=== PATIENT | male | born 1930 | race Caucasian/White ===

== ENCOUNTER 2017-09-18 10:34 | Inpatient (IN) | payer OTHER ==
[~2017-09-18] VITALS: Ht 177.8 cm; Wt 68.8 kg
[~2017-09-18 10:34] MED LIST: ASPEC81 PO; FERR1TAB13 PO; FLM4 PO; MULTTAB58 PO; PRS5 PO; SIMV80TA5 PO; TERA1CAP63 PO
[2017-09-18] MEDS ORDERED: ASPIRIN 81 MG CHEW PO STA (10:54)
[2017-09-18 11:21] LABS: BASO % 0.6 %; BASO ABS # 0.04 K/uL (0-0.2); EOS % 1.5 %; EOS ABS # 0.11 K/uL (0-0.5); HEMATOCRIT 39.3 % (42-52); HEMOGLOBIN 13.5 g/dL (14.0-18.0); IG# 0.02 K/uL (0.00-0.02); LYMPH % 6.4 %; LYMPH ABS # 0.46 K/uL (1.2-3.4); MEAN CORPUSCULAR HEMOGLOBIN 32.3 pg (25-34); MEAN CORPUSCULAR HGB CONC 34.4 g/dl (32-36); MEAN PLATELET VOLUME 11.1 fL (7.4-10.4); MONO % 6.5 %; MONO ABS # 0.47 K/uL (0.11-0.59); NEUT % 84.7 %; NEUT ABS # 6.12 K/uL (1.4-6.5); PLATELET COUNT 146 K/uL (130-400); RED CELL DISTRIBUTION WIDTH SD 48.2 fL (36.4-46.3); WHITE BLOOD COUNT 7.22 K/uL (4.8-10.8)
--- NOTE | 2017-09-18 11:34 | EMERGENCY ROOM VISIT NOTE ---
History Report prepared by Aaron: Adri Vásquez Under the Supervision of: Dr. Guille Euceda M.D. First contact with patient: 10:45 Chief Complaint: SHORTNESS OF BREATH Stated Complaint: SOB Nursing Triage Summary: Pt presents with sob x a couple days, worse at night when lying flat. "Sore" across chest. Pt reports having a pacemaker. NPC. Pt states, "I'm dizzy too. I' m always dizzy. Nobody knows what causes it." Denies edema. History of Present Illness The patient is a 87 year old male who presents to the Emergency Room with complaints of constant shortness of breath for the past 2 days. Laying down exacerbates his symptoms, while sitting up helps to alleviate his symptoms. He has been sleeping propped up with pillows at night because he has been unable to lay flat. He reports some chest pain across his chest as well as a dry, nonproductive cough. He rates his pain as a 3/10 in severity. Pt denies recent travel or recent surgery. He does not take any hormones. He denies LOC, fevers, hemoptysis, and abdominal pain. His legs are not more swollen than usual. He denies any personal history of CHF. He takes a daily aspirin. The patient follows with [facility] cardiology. His PCP is through the [facility], most [facility] [place] Source of History: patient Onset: 2 days ago Position: chest (respiratory) Symptom Intensity: 3/10 Quality: other (shortness of breath) Timing: constant Modifying Factors (Worsening): other (laying down) Modifying Factors (Relieving): other (sitting up) Associated Symptoms: + cough, + chest pain, No LOC, No fevers, No abdominal pain Note: Pt denies hemoptysis. Review of Systems See HPI for pertinent positives and negatives. A total of ten systems were reviewed and were otherwise negative. 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 Social History Smoking Status: Never Smoker Drug Use: none Marital Status: Housing Status: lives with significant other Occupation Status: retired Current/Historical Medications Scheduled Aspirin Enteric Coated (Ecotrin Or Generic *), 81 MG PO BID Ferrous Sulfate (Kp Ferrous Sulfate), 325 MG PO DAILY Finasteride (Finasteride), 5 MG PO QAM Multiple Vitamin (Multivitamin), 1 TAB PO DAILY Simvastatin (Zocor), 80 MG PO QPM Terazosin Hcl (Hytrin), 10 MG PO DAILY Allergies Coded Allergies: No Known Allergies (Verified , 09/18/17) Physical Exam Vital Signs Date Time Temp Pulse Resp B/P (MAP) Pulse Ox O2 Delivery O2 Flow Rate FiO2 09/18/17 13:14 94 Room Air 09/18/17 12:16 88 145/87 09/18/17 12:12 89 09/18/17 12:04 85 143/92 09/18/17 12:01 85 20 149/102 94 Room Air 09/18/17 11:08 96 Room Air 09/18/17 10:52 98 09/18/17 10:43 97 Room Air 09/18/17 10:41 36.7 96 18 162/87 97 Room Air Physical Exam Physical Exam GENERAL: He is oriented to person, place, and time. He appears well-developed and well-nourished. He does not appear distressed. ____ HENT: Exam performed. Head: Normocephalic and atraumatic. Right Ear: External ear normal. No mastoid tenderness. Left Ear: External ear normal. No mastoid tenderness. Mouth/Throat: The oropharynx is clear and moist. No trismus in the jaw. No dental abscesses or uvula swelling. No oropharyngeal exudate or tonsillar abscesses. ____ EYES: Conjunctivae and EOM are normal. Pupils are equal, round, and reactive to light. Right eye exhibits no discharge. Left eye exhibits no discharge. No scleral icterus. ____ NECK: Normal range of motion. Neck supple. No JVD present. No spinous process tenderness present. No carotid bruit present. No rigidity. No tracheal deviation and normal range of motion present. No Brudzinski's sign and no Kernig 's sign noted. ____ CV: Normal rate, regular rhythm, normal heart sounds and intact distal pulses. There is no peripheral edema. Palpable radial pulses bue. ____ PULM/CHEST: Effort normal and breath sounds normal. No respiratory distress. No stridor. He has no wheezes. He has no rales. Chest Wall: He exhibits no tenderness. ____ ABD: The abdomen is soft. Bowel sounds are normal. He has no distension. No mass is present. There is no tenderness. There is no rebound, no guarding, no Zapata's sign and no tenderness at McBurney's point. Rovsig negative MUSC/SKEL: Normal range of motion. 2+ pitting edema in bilateral lower extremities. There is no tenderness or deformity. LYMPH: No cervical adenopathy. ____ NEURO: He is alert and oriented to person, place, and time. He has normal strength. No cranial nerve deficit or sensory deficit. Coordination and gait normal. GCS eye subscore is 4. GCS verbal subscore is 5. GCS motor subscore is 6. cerbellar tests wnl. ____ SKIN: Skin is warm and dry. He is not diaphoretic. ____ PSYCH: He has a normal mood and affect. His behavior is normal. Judgment and thought content normal. ____ Medical Decision & Procedures ER Provider Diagnostic Interpretation: Radiology results as stated below per my review and radiologist interpretation: CHEST 2 VIEWS ROUTINE CLINICAL HISTORY: sob COMPARISON STUDY: 05/04/2016 FINDINGS: The heart is enlarged. There is a left subclavian dual-chamber central venous pacemaker present. There is radiographic evidence of mild congestive failure. There is a moderate left pleural effusion and small subpulmonic right pleural effusion. There are bibasal airspace opacities, likely representing either compressive atelectasis or a superimposed infectious/inflammatory process. IMPRESSION: 1. Congestive failure with bilateral pleural effusions left greater than right 2. Bibasilar opacities. These could reflect either compressive atelectasis, or a superimposed infectious/inflammatory process., Electronically signed by: Fernando Nolen M.D. 09/18/2017 11:42 AM Dictated Date/Time: 09/18/2017 11:40 AM Laboratory Results 09/18/17 11:00 Red Blood Count 4.18, Mean Corpuscular Volume 94.0, Mean Corpuscular Hemoglobin 32.3, Mean Corpuscular Hemoglobin Concent 34.4, Mean Platelet Volume 11.1, Neutrophils (%) (Auto) 84.7, Lymphocytes (%) (Auto) 6.4, Monocytes (%) (Auto) 6.5, Eosinophils (%) (Auto) 1.5, Basophils (%) (Auto) 0.6, Neutrophils # (Auto) 6.12, Lymphocytes # (Auto) 0.46, Monocytes # (Auto) 0.47, Eosinophils # (Auto) 0.11, Basophils # (Auto) 0.04 09/18/17 11:00 Test 09/18/17 11:00 White Blood Count 7.22 K/uL (4.8-10.8) Red Blood Count 4.18 M/uL (4.7-6.1) Hemoglobin 13.5 g/dL (14.0-18.0) Hematocrit 39.3 % (42-52) Mean Corpuscular Volume 94.0 fL (80-100) Mean Corpuscular Hemoglobin 32.3 pg (25-34) Mean Corpuscular Hemoglobin Concent 34.4 g/dl (32-36) Platelet Count 146 K/uL (130-400) Mean Platelet Volume 11.1 fL (7.4-10.4) Neutrophils (%) (Auto) 84.7 % Lymphocytes (%) (Auto) 6.4 % Monocytes (%) (Auto) 6.5 % Eosinophils (%) (Auto) 1.5 % Basophils (%) (Auto) 0.6 % Neutrophils # (Auto) 6.12 K/uL (1.4-6.5) Lymphocytes # (Auto) 0.46 K/uL (1.2-3.4) Monocytes # (Auto) 0.47 K/uL (0.11-0.59) Eosinophils # (Auto) 0.11 K/uL (0-0.5) Basophils # (Auto) 0.04 K/uL (0-0.2) RDW Standard Deviation 48.2 fL (36.4-46.3) RDW Coefficient of Variation 14.0 % (11.5-14.5) Immature Granulocyte % (Auto) 0.3 % Immature Granulocyte # (Auto) 0.02 K/uL (0.00-0.02) Anion Gap 5.0 mmol/L (3-11) Est Creatinine Clear Calc Drug Dose 45.2 ml/min Estimated GFR () 62.5 Estimated GFR (Non- 53.9 BUN/Creatinine Ratio 19.8 (10-20) Calcium Level 9.3 mg/dl (8.5-10.1) Troponin I 0.719 ng/ml (0-0.045) Pro-B-Type Natriuretic Peptide 64148 pg/ml (0-1800) Laboratory results reviewed by me. Medications Administered Medications (Trade) Dose Ordered Sig/Rhonda Route Start Time Stop Time Status Last Admin Dose Admin Aspirin (Aspirin Chew) 324 mg NOW STAT PO 09/18/17 10:54 09/18/17 10:56 DC 09/18/17 11:07 324 MG Nitroglycerin (Nitrostat Tab) 0.4 mg NOW STAT SL 09/18/17 11:58 09/18/17 11:59 DC 09/18/17 12:00 0.4 MG Furosemide (Lasix Inj) 40 mg ONE ONCE IV 09/18/17 12:15 09/18/17 12:16 DC 09/18/17 12:12 40 MG ECG Indication: SOB/dyspnea Rate (beats per minute): 92 Rhythm: normal sinus Findings: LBBB, other (OR WNL; QRS 166, QTC 502; Scarbosa negative) Comparison ECG Date: 04/24/16 Change: no significant change Change: Patient's electrocardiogram was interpreted by me. 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 1045: The patient was evaluated in room C5. A complete history and physical exam was performed. 1054: Aspirin 324 mg PO 1158: Nitroglycerin 0.4 mg SL 1215: Lasix 40 mg IV 1232: Troponin elevated. Pro-BNP elevated. Patient was reporting chest pain 3/ 10. He was given 1 nitro SL and this resolved all of his chest pain. Patient given Lasix. Cardiology is paged. 1239: I spoke with Dr. Rodriguez of cardiology. We discussed the patient's case. He is in agreement with the treatment plan. He feels the elevated troponin is most likely due to CHF exacerbation. He recommended holding off on a heparin drip. 1244: I reassessed the patient at this time. He is feeling better and resting comfortably. I discussed the results and treatment plan with the patient. I answered all pertaining questions that he had. He expressed understanding and verbalized agreement. The patient will be evaluated by the [facility] for further management. Medical Decision Troponin elevated. Pro-BNP elevated. Patient was reporting chest pain 10/19. He was given 1 nitro SL and this resolved all of his chest pain. Patient given Lasix. I spoke with Dr. Rodriguez of cardiology. We discussed the patient's case. He is in agreement with the treatment plan. He feels the elevated troponin is most likely due to CHF exacerbation. He recommended holding off on a heparin drip and nitro drip at this time. Admitted to hospitalist service. Hospitalist will continue to trend troponins. Medication Reconcilliation Current Medication List: was personally reviewed by me Blood Pressure Screening Patient's blood pressure: Elevated blood pressure Blood pressure disposition: Elevated BP felt to be situational Consults Time Called: 1236 Consulting Physician: Dr. Rodriguez Returned Call: [address] Rodriguez of cardiology. We discussed the patient's case. He is in agreement with the treatment plan. He feels the elevated troponin is most likely due to CHF exacerbation. He recommended holding off on a heparin drip. Impression Primary Impression: CHF (congestive heart failure) Scribe Attestation The scribe's documentation has been prepared under my direction and personally reviewed by me in its entirety. I confirm that the note above accurately reflects all work, treatment, procedures, and medical decision making performed by me. The scribe's documentation has been prepared under my direction and personally reviewed by me in its entirety. I confirm that the note above accurately reflects all work, treatment, procedures, and medical decision making performed by me. Departure Information Dispostion Being Evaluated By Hospitalist Referrals No Doctor, Assigned (PCP) Patient Instructions My [facility] [address]
[2017-09-18 11:43] LABS: CALCIUM 9.3 mg/dl (8.5-10.1); CREATININE 1.21 mg/dl (0.60-1.40); POTASSIUM 4.1 mmol/L (3.5-5.1)
--- NOTE | 2017-09-18 11:43 | DIAGNOSTIC IMAGING REPORT ---
CHEST 2 VIEWS ROUTINE CLINICAL HISTORY: sob COMPARISON STUDY: 05/04/2016 FINDINGS: The heart is enlarged. There is a left subclavian dual-chamber central venous pacemaker present. There is radiographic evidence of mild congestive failure. There is a moderate left pleural effusion and small subpulmonic right pleural effusion. There are bibasal airspace opacities, likely representing either compressive atelectasis or a superimposed infectious/inflammatory process. IMPRESSION: 1. Congestive failure with bilateral pleural effusions left greater than right 2. Bibasilar opacities. These could reflect either compressive atelectasis, or a superimposed infectious/inflammatory process., Electronically signed by: Fernando Nolen M.D. 09/18/2017 11:42 AM Dictated Date/Time: 09/18/2017 11:40 AM
[2017-09-18] MEDS ORDERED: FUROSEMIDE INJ 40 MG in SYRINGE 0 ML IV STA (11:54)
[2017-09-18] MEDS ORDERED: NITROGLYCERIN 0.4 MG SL PER TAB CHARGE SL STA (11:58)
[2017-09-18] MEDS ORDERED: NITROGLYCERIN 0.4 MG SL PER TAB CHARGE ONE (11:58)
[2017-09-18] MEDS ORDERED: FUROSEMIDE 40 MG/4 ML VIAL IV ONE (12:15)
[2017-09-18] MEDS ORDERED: POTASSIUM CHLORIDE 10 MEQ TABCR PO STA (12:56)
[2017-09-18] MEDS ORDERED: NITROGLYCERIN 0.4 MG SL PER TAB CHARGE SL PRN (13:00)
[2017-09-18] MEDS ORDERED: ALUMINUM/MAGNESIUM/SIMETH (MAALOX MAX) 30 ML UDC PO PRN (13:00)
[2017-09-18] MEDS ORDERED: POLYETHYLENE (MIRALAX) 17 GM PACK PO PRN (13:00)
[2017-09-18] MEDS ORDERED: NITROGLYCERIN 2% OINTMENT 30GM TUBE EXT SCH (13:00)
[2017-09-18] MEDS ORDERED: ACETAMINOPHEN 325 MG TAB PO PRN (13:00)
[2017-09-18] MEDS ORDERED: MAGNESIUM HYDROXIDE SUSP 30 ML UDC PO PRN (13:00)
[2017-09-18] MEDS ORDERED: ONDANSETRON INJ 2 MG/ML 2 ML VIAL IV PRN (13:00)
[2017-09-18 13:14] VITALS: BP 157/95; PULSE 85; TEMP 36.8; O2SAT 94; Ht 177.8 cm; Wt 68.8 kg
[2017-09-18] MEDS ORDERED: ENOXAPARIN 1 MG/KG SQ SCH (13:30)
--- NOTE | 2017-09-18 13:47 | History and Physical ---
History & Physical Date & Time of Service: Sep 18, 2017 at 13:26 Chief Complaint: SOB Primary Care Physician: No Doctor, Assigned History of Present Illness Source: patient 87 y/o M Hx BPH, HPL, LBBB, pacer due to 3rd degree heart block 2015. Pt presents with SOB, orthopnea and pleuritic CP when lying flat. He denies a productive cough, fever, N/V or episodes of diaphoresis. The pt does not have a history of CHF or CAD. Initial labs are notable for an elevated trop. CXR is consistent with CHF. Past Medical/Surgical History 1) HPL 2) BPH 3) Pacer due to 3rd degree heart block 2015 4) LBBB Surgical Pacer placement L TKR Family History Noncontributory Social History Retired aircraft machinist - rare ETOH, no smoking Smoking Status: Never Smoker Drug Use: none Marital Status: Occupational Status: retired Immunizations History of Influenza Vaccine: Unknown History of Tetanus Vaccine?: Yes History of Pneumococcal: Unknown History of Hepatitis B Vaccine: No Multi-Drug Resistant Organisms History of MDRO: No Allergies Coded Allergies: No Known Allergies (Verified , 09/18/17) Home Medications Scheduled Aspirin Enteric Coated (Ecotrin Or Generic *), 81 MG PO BID Ferrous Sulfate (Kp Ferrous Sulfate), 325 MG PO DAILY Finasteride (Finasteride), 5 MG PO QAM Multiple Vitamin (Multivitamin), 1 TAB PO DAILY Simvastatin (Zocor), 80 MG PO QPM Terazosin Hcl (Hytrin), 10 MG PO DAILY Review of Systems Constitutional: No fever, No chills, No sweats Eyes: No worsening of vision ENT: No hearing loss, No unusual epistaxis, No nasal symptoms Respiratory: + shortness of breath, + dyspnea on exertion, + dyspnea at rest, No cough, No sputum, No wheezing Cardiovascular: + chest pain (when lying flat - pleuritic) Abdomen: No pain, No nausea, No vomiting Musculoskeletal: No joint pain Genitourinary - Male: No hematuria, No dysuria, No urinary frequency Neurologic: No memory loss, No paralysis Psychiatric: No depression symptoms Endocrine: No fatigue Hematologic / Lymphatic: No abnormal bleeding/bruising Integumentary: + rash (erythema of RLE - chronic) Allergic / Immunologic: No environmental allergies Physical Exam Vital Signs Date Time Temp Pulse Resp B/P (MAP) Pulse Ox O2 Delivery O2 Flow Rate FiO2 09/18/17 12:16 88 145/87 09/18/17 12:12 89 09/18/17 12:04 85 143/92 09/18/17 12:01 85 20 149/102 94 Room Air 09/18/17 11:08 96 Room Air 09/18/17 10:52 98 09/18/17 10:43 97 Room Air 09/18/17 10:41 36.7 96 18 162/87 97 Room Air General Appearance: WD/WN, no apparent distress, + thin (thin, e;mandi;y male ) Head: normocephalic Eyes: normal inspection ENT: normal ENT inspection, pharynx normal Neck: supple, + JVD Respiratory/Chest: chest non-tender, + decreased breath sounds, + crackles Cardiovascular: regular rate, rhythm, no edema, no gallop Abdomen/GI: normal bowel sounds, non tender, soft Back: no CVA tenderness Extremities/Musculoskelatal: no calf tenderness, normal capillary refill, + pedal edema Neurologic/Psych: neck band setter II-XII nml as tested, no motor/sensory deficits, alert, oriented x 3 Skin: + pertinent finding (Erythema without overt cellulitis on R ant) Diagnostics Laboratory Results Results Past 24 Hours Test 09/18/17 11:00 Range/Units White Blood Count 7.22 4.8-10.8 K/uL Red Blood Count 4.18 4.7-6.1 M/uL Hemoglobin 13.5 14.0-18.0 g/dL Hematocrit 39.3 42-52 % Mean Corpuscular Volume 94.0 80-100 fL Mean Corpuscular Hemoglobin 32.3 25-34 pg Mean Corpuscular Hemoglobin Concent 34.4 32-36 g/dl Platelet Count 146 130-400 K/uL Mean Platelet Volume 11.1 7.4-10.4 fL Neutrophils (%) (Auto) 84.7 % Lymphocytes (%) (Auto) 6.4 % Monocytes (%) (Auto) 6.5 % Eosinophils (%) (Auto) 1.5 % Basophils (%) (Auto) 0.6 % Neutrophils # (Auto) 6.12 1.4-6.5 K/uL Lymphocytes # (Auto) 0.46 1.2-3.4 K/uL Monocytes # (Auto) 0.47 0.11-0.59 K/uL Eosinophils # (Auto) 0.11 0-0.5 K/uL Basophils # (Auto) 0.04 0-0.2 K/uL RDW Standard Deviation 48.2 36.4-46.3 fL RDW Coefficient of Variation 14.0 11.5-14.5 % Immature Granulocyte % (Auto) 0.3 % Immature Granulocyte # (Auto) 0.02 0.00-0.02 K/uL Sodium Level 143 136-145 mmol/L Potassium Level 4.1 3.5-5.1 mmol/L Chloride Level 111 98-107 mmol/L Carbon Dioxide Level 27 21-32 mmol/L Anion Gap 5.0 3-11 mmol/L Blood Urea Nitrogen 24 7-18 mg/dl Creatinine 1.21 0.60-1.40 mg/dl Est Creatinine Clear Calc Drug Dose 45.2 ml/min Estimated GFR () 62.5 Estimated GFR (Non- 53.9 BUN/Creatinine Ratio 19.8 10-20 Random Glucose 137 70-99 mg/dl Calcium Level 9.3 8.5-10.1 mg/dl Troponin I 0.719 0-0.045 ng/ml Pro-B-Type Natriuretic Peptide 96713 0-1800 pg/ml Diagnostic Radiology CXR: CHF - BL effusions EKG sinus - LBBB Impression Assessment and Plan 87 y/o M Hx BPH, HPL, LBBB, pacer due to 3rd degree heart block 2016. Pt presents with SOB, orthopnea and pleuritic CP when lying flat. He denies a productive cough, fever, N/V or episodes of diaphoresis. The pt does not have a history of CHF or CAD. 1) CHF - new onset - IV Lasix, daily weight, I/O - echo and cardiology consult requested. Would eventually benefit from B arlyn and possibly SHELLEY after more details available from echo. 2) Troponin is elevated - likely due to CHF - a silent event precipitating the above cannot however be ruled out. He is placed on full-dose Lovenox pending repeat trop and an echo. 3) LE edema - L>R - US ordered due to asymmetric edema and pleuritic CP. 4) HPL - cont Zocor 5) BPH - cont Terazosin Full code - Lovenox prophylaxis Total time for this admit including review of labs, meds, records, EKG, XR - discussion with pt and ER attending - 38 min Level of Care Telemetry Resuscitation Status FULL RESUSCITATION VTE Prophylaxis VTE Risk Assessment Done? Y/N: Yes Risk Level: Moderate Given or contraindicated: Enoxaparin (Lovenox)SQ
[2017-09-18] MEDS ORDERED: HEPARIN SOD 5000 UNIT/0.5 ML CARP SQ SCH (14:00)
--- NOTE | 2017-09-18 14:31 | DIAGNOSTIC IMAGING REPORT ---
BILATERAL LOWER EXTREMITY VENOUS DOPPLER HISTORY: Acute bilateral lower extremity swelling dvt COMPARISON STUDY: None. FINDINGS: There is normal compressibility, flow, and augmentation within the bilateral lower extremity deep venous systems. IMPRESSION: No sonographic evidence of deep venous thrombosis within the right or left lower extremity. Electronically signed by: Carmelo Hayward M.D. 09/18/2017 2:29 PM Dictated Date/Time: 09/18/2017 2:28 PM
[2017-09-18 16:02] VITALS: O2SAT 95
--- NOTE | 2017-09-18 16:51 | ECHOCARDIOGRAM REPORT ---
*NOTICE TO RECEIVING DEMOCRAT AGENCY This information is strictly Confidential and protected under [place] law. [place] law prohibits you from making any further disclosure of this information unless further disclosure is expressly permitted by the written consent of the person to whom it pertains or is authorized by law. A general authorization for the release of medical or other information is not sufficient for this purpose. Hospital accepts no responsibility if the information is made available to any other person, INCLUDING THE PATIENT. Interpretation Summary * Name: GEORGIANA STOCKTON JR Study Date: 09/18/2017 03:02 PM BP: 150/91 mmHg * Patient Location: [facility] HR: 77 * : 1930 (M/d/yyyy) Gender: Male Height: 70 in * Age: 87 yrs Ethnicity: CA Weight: 172 lb * Ordering Physician: Ramírez Villarreal * Referring Physician: Self, Referred * Performed By: Alyssa Donovan RDCS * * Reason For Study: CHF * BSA: 2.0 m2 * -- Conclusions -- * 1. Moderately dilated LV, borderline concentric LVH. * 2. Severe LV dysfunction. LVEF 20-25 %. Regional wall motion abnormalities as noted below. Grade 2 diastolic dysfunction * 3. Normal RV size and function. * 4. Moderate mitral regurgitation * 5. Thickened, calcified, restricted aortic valve with at least mild aortic stenosis. * 6. Mild pulmonary hypertension. Estimated PASP 40-45 mmHg. Normal estimated CVP. * 7. Large left pleural effusion. * 8. Compared with prior study on 04/21/2016: Significant decline in LV function. Procedure Details * Left Ventricle The left ventricle is moderately dilated. There is borderline concentric left ventricular hypertrophy. Ejection Fraction = 20-25%. Akinetic inferior, septal castro. Severely hypokinetic anteroseptal, inferlateral castro. Near normal function in base to mid anterior wall and basal lateral wall. * Right Ventricle The right ventricle is grossly normal size. There is a pacemaker lead in the right ventricle. The right ventricular systolic function is normal as assessed by tricuspid annular plane systolic excursion (TAPSE) (normal >1.5 cm). * Atria The left atrium is severely dilated. The right atrium is mildly dilated. No ASD detected; PFO is not assessed. * Mitral Valve The mitral valve is grossly normal. There is no mitral valve stenosis. There is moderate mitral regurgitation. * Tricuspid Valve The tricuspid valve is not well visualized, but is grossly normal. There is trace tricuspid regurgitation. Right ventricular systolic pressure is elevated at 40-50mmHg. * Aortic Valve Calcified, thickened and restricted Mild valvular aortic stenosis. There is no significant aortic regurgitation. * Pulmonic Valve The pulmonary valve is inadequately visualized, but the Doppler data is adequate for interpretation. Pulmonic stenosis is absent. There is no significant pulmonary regurgitation. * Great Vessels The aortic root and proximal ascending aorta are normal sized. * Pericardium/Pleural There is no pericardial effusion. Large left pleural effusion. * Great Vessels Normal inferior vena cava size and collapsability with sniff indicates a normal right atrial pressure of 3 mmHg * Left Ventricular Diastolic Function Diastolic dysfunction, Grade II (pseudonormalization pattern). * * MMode 2D Measurements and Calculations * IVSd 1.2 cm * IVSs 1.2 cm * * LVIDd 6.0 cm * LVIDs 5.2 cm * LVPWd 1.2 cm * LVPWs 1.4 cm * * IVS/LVPW 0.97 * FS 14.0 % * EDV(Teich) 183.1 ml * ESV(Teich) 129.5 ml * EF(Teich) 29.2 % * * EDV(cubed) 220.8 ml * ESV(cubed) 140.6 ml * EF(cubed) 36.3 % * % IVS thick -1.55 % * % LVPW thick 15.4 % * * LV mass(C)d 328.2 grams * LV mass(C)dI 167.6 grams/m\S\2 * LV mass(C)s 283.2 grams * LV mass(C)sI 144.7 grams/m\S\2 * * SV(Teich) 53.5 ml * SI(Teich) 27.3 ml/m\S\2 * SV(cubed) 80.2 ml * SI(cubed) 41.0 ml/m\S\2 * * Ao root diam 3.3 cm * Ao root area 8.5 cm\S\2 * * LVAd ap4 43.5 cm\S\2 * LVLd ap4 10.2 cm * EDV(MOD-sp4) 158.5 ml * EDV(sp4-el) 157.7 ml * LVAs ap4 35.8 cm\S\2 * LVLs ap4 9.8 cm * ESV(MOD-sp4) 110.3 ml * ESV(sp4-el) 110.5 ml * EF(MOD-sp4) 30.4 % * EF(sp4-el) 29.9 % * * LVAd ap2 49.6 cm\S\2 * LVLd ap2 10.4 cm * EDV(MOD-sp2) 205.7 ml * EDV(sp2-el) 200.9 ml * LVAs ap2 41.4 cm\S\2 * LVLs ap2 10.2 cm * ESV(MOD-sp2) 148.0 ml * ESV(sp2-el) 143.1 ml * EF(MOD-sp2) 28.1 % * EF(sp2-el) 28.8 % * * LVLd %diff 1.9 % * EDV(MOD-bp) 181.0 ml * LVLs %diff 3.2 % * ESV(MOD-bp) 128.2 ml * EF(MOD-bp) 29.2 % * * SV(MOD-sp4) 48.2 ml * SI(MOD-sp4) 24.6 ml/m\S\2 * * SV(MOD-sp2) 57.8 ml * SI(MOD-sp2) 29.5 ml/m\S\2 * * SV(MOD-bp) 52.8 ml * SI(MOD-bp) 27.0 ml/m\S\2 * * SV(sp4-el) 47.2 ml * SI(sp4-el) 24.1 ml/m\S\2 * * SV(sp2-el) 57.8 ml * SI(sp2-el) 29.5 ml/m\S\2 * * * * Doppler Measurements and Calculations * MV E max wesley 102.3 cm/sec * MV A max wesley 82.0 cm/sec * * MV E/A 1.2 * * MV dec time 0.14 sec * * Ao V2 max 217.2 cm/sec * Ao max PG 18.9 mmHg * Ao max PG (full) 16.8 mmHg * Ao V2 mean 145.0 cm/sec * Ao mean PG 9.8 mmHg * Ao mean PG (full) 8.8 mmHg * Ao V2 VTI 40.8 cm * * LV V1 max PG 2.0 mmHg * LV V1 mean PG 1.0 mmHg * * LV V1 max 71.3 cm/sec * LV V1 mean 47.3 cm/sec * LV V1 VTI 14.0 cm * * SV(Ao) 347.8 ml * SI(Ao) 177.7 ml/m\S\2 * * TR max wesley 243.2 cm/sec * *
[2017-09-18] MEDS: NITROGLYCERIN 2% OINTMENT 30GM TUBE EXT SCH ×2 (16:57→21:10)
[2017-09-18] MEDS: FUROSEMIDE INJ 20 MG in SYRINGE 0 ML IV SCH (16:58)
[2017-09-18] MEDS: ENOXAPARIN 80 MG/0.8 ML SYR SQ SCH (16:58)
[2017-09-18 19:30] VITALS: BP 119/70; PULSE 80; TEMP 36.5; O2SAT 90
[2017-09-18 20:09] VITALS: O2SAT 95
[2017-09-18] MEDS ORDERED: FUROSEMIDE INJ 20 MG in SYRINGE 0 ML IV SCH (21:00)
[2017-09-18] MEDS: ASPIRIN 81 MG ECTAB PO SCH (21:09)
[2017-09-18] MEDS: SIMVASTATIN 80 MG TAB PO SCH (21:09)
[2017-09-18] MEDS: POTASSIUM CHLORIDE 10 MEQ TABCR PO SCH (21:10)
[2017-09-18 23:59] VITALS: BP 119/72; PULSE 93; TEMP 36.9; O2SAT 94
[2017-09-19] VITALS (11 sets, daily range): BP systolic 95–149; BP diastolic 60–79; PULSE 69–83; TEMP 36.3–37; O2SAT 86–96
[2017-09-19] MEDS: NITROGLYCERIN 2% OINTMENT 30GM TUBE EXT SCH ×2 (04:00→09:10)
[2017-09-19] MEDS: ENOXAPARIN 80 MG/0.8 ML SYR SQ SCH ×2 (04:40→17:37)
[2017-09-19] MEDS: FINASTERIDE 5 MG TAB PO SCH (08:02)
[2017-09-19] MEDS: FUROSEMIDE INJ 20 MG in SYRINGE 0 ML IV SCH (08:02)
[2017-09-19] MEDS: ASPIRIN 81 MG ECTAB PO SCH ×2 (08:03→21:32)
[2017-09-19] MEDS: POTASSIUM CHLORIDE 10 MEQ TABCR PO SCH ×2 (08:03→21:32)
--- NOTE | 2017-09-19 09:47 | Cardiology Consultation ---
Cardiology Consultation Date of Consultation: Sep 19, 2017. Requesting Physician: Dr. Villarreal Reason for Consultation: CHF, pacer Pt evaluation today including: conversation w/ patient, physical exam, lab review, review of studies, review of inpatient medication list History of Present Illness This is a very pleasant 87-year-old gentleman who has a history of intermittent lightheadedness, dizziness, presyncope as well as at least 5 syncopal events historically. He did have a positive Lyme screen, and he was identified as having periods of complete heart block on telemetry monitoring in 2015. 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 He seemed to have return of AV conduction with a left bundle branch block and first-degree AV block and his temporary pacemaker was removed, he had a stress test performed on 04/23/2016 where he had no AV block. Then on the evening of 04/23/2016 he developed complete heart block with pauses up to 17 seconds in duration associated with syncope. He therefore had another temporary pacemaker implanted followed by permanent pacemaker implant on 04/24/2016. He has had no further presyncope or syncope. He is however troubled by lightheadedness. He is not been able to describe it very well, it generally occurs while he is standing although not necessarily with standing up. It can sometimes last all day. He had not checked his blood pressure while he is having it in the past. This has been a long-standing issue and seems to be separate from his presyncope and syncope. He was admitted having a relatively brief period of shortness of breath predominantly characterized by orthopnea. This appears to have occurred only 3 or 4 days prior to admission, prior to that he reports no orthopnea, no PND and no dyspnea on exertion. He has not had any chest discomfort. He was observed to be in heart failure and was admitted, echocardiography shows severe left ventricular dysfunction which was new compared to 2016. At the time of my evaluation this morning he is complaining of sudden onset of weakness, this occurred while he was brushing his teeth and on return to his bed his blood pressure was taken and was perhaps a little bit low (109 systolic ) and Nitropaste was removed. I had his blood pressure rechecked and it was 116 in left arm and 104 in the right arm. His oxygenation was perhaps slightly low at 90%. His rhythm was stable and paced. He appeared to have no change in the symptoms while laying in bed. He is not complaining of orthopnea today. 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) (4) Syncope Social History Smoking Status: Never Smoker History of Alcohol Use: No Review of Systems Constitutional: + see HPI, + weakness, No fever, No weight loss Respiratory: + shortness of breath, No cough, No wheezing, No dyspnea on exertion Cardiac: + see HPI, + orthopnea, No PND, No edema, No palpitations Abdomen: No pain, No nausea, No vomiting, No diarrhea, No GI bleeding Male : No urinary frequency, No nocturia more than once/night, No slowing stream, No sexual dysfunction Neurologic: No paralysis, No weakness, No numbness/tingling, No balance problems Heme: No abnormal bleeding/bruising, No clotting problems Endo: No fatigue Skin: No problem reported All Other Systems: Reviewed and Negative Allergies Coded Allergies: No Known Allergies (Verified , 09/18/17) Medications Current Inpatient Medications Medications (Trade) Dose Ordered Sig/Rhonda Route Start Time Stop Time Status Last Admin Dose Admin Aspirin (Ecotrin Tab) 81 mg BID PO 09/18/17 21:00 10/18/17 20:59 09/19/17 08:03 81 MG Finasteride (Proscar Tab) 5 mg QAM PO 09/19/17 09:00 10/19/17 08:59 09/19/17 08:02 5 MG Simvastatin (Zocor Tab) 80 mg QPM PO 09/18/17 21:00 10/18/17 20:59 09/18/17 21:09 80 MG Terazosin HCl (Hytrin Cap) 10 mg DAILY PO 09/19/17 09:00 10/19/17 08:59 09/19/17 08:02 10 MG Acetaminophen (Tylenol Tab) 650 mg Q4H PRN PO 09/18/17 13:00 10/18/17 12:59 Al Hydrox/Mg Hydrox/Simethicone (Maalox Max Susp) 15 ml Q4H PRN PO 09/18/17 13:00 10/18/17 12:59 Magnesium Hydroxide (Milk Of Magnesia Susp) 30 ml Q12H PRN PO 09/18/17 13:00 10/18/17 12:59 Ondansetron HCl (Zofran Inj) 4 mg Q6H PRN IV 09/18/17 13:00 10/18/17 12:59 Nitroglycerin (Nitrostat Tab) 0.4 mg UD PRN SL 09/18/17 13:00 10/18/17 12:59 Polyethylene (Miralax Powder Packet) 17 gm DAILY PRN PO 09/18/17 13:00 10/18/17 12:59 Potassium Chloride (Klor-Con M10) 10 meq BID PO 09/18/17 21:00 10/18/17 20:59 09/19/17 08:03 10 MEQ Furosemide 20 mg/ Syringe 2 ml @ 4 mls/min BID17 IV 09/18/17 17:00 10/18/17 16:59 09/19/17 08:02 4 MLS/MIN Nitroglycerin (Nitroglycerin 2% Oint) 1 inch Q6H EXT 09/18/17 16:00 10/18/17 15:59 09/19/17 04:00 1 INCH Enoxaparin Sodium (Lovenox Inj) 80 mg Q12@0600,1800 SQ 09/18/17 16:00 10/18/17 15:59 09/19/17 04:40 80 MG Physical Exam Vital Signs Past 12 Hours Date Time Temp Pulse Resp B/P (MAP) Pulse Ox O2 Delivery O2 Flow Rate FiO2 09/19/17 09:11 36.4 74 18 101/60 (74) 92 Nasal Cannula 4.0 09/19/17 09:07 36.4 83 18 95/62 (73) 86 Room Air 09/19/17 07:29 36.9 69 18 125/79 (94) 93 Room Air 09/19/17 04:00 Room Air 09/19/17 02:55 37.0 73 20 149/79 (102) 93 Room Air 09/19/17 00:00 Room Air 09/18/17 23:59 36.9 93 18 119/72 (88) 94 Room Air Constitutional: General Apperance: heathly-appearing Level of Distress: NAD Psychiatric: Mental Status: active & alert Head: normocephalic Eyes: EOM: EOMI ENMT: normal ENT inspection, hearing grossly normal Neck: supple, no masses Lungs: Respiratory effort: no dyspnea, good air movement Auscultation: no wheezing, rales/crackles on the left (slight), rales/ crackles on the right (slight) Cardiovascular: Heart Auscultation: RRR, no murmurs, no rubs, no gallops Peripheral Pulses: Bruits: none appreciated Abdomen: Bowel Sounds: normal Inspection & Palpation: soft, no tenderness, guarding & rebound, no masses Musculoskeletal: pertinent finding (weakness in the right arm which the patient reports has been present since an accident some years ago) Extremities: no edema Neurologic: Cranial Nerves: grossly intact Sensation: grossly intact Data Laboratory Results: Last 24 Hours Test 09/18/17 11:00 White Blood Count 7.22 K/uL Red Blood Count 4.18 M/uL Hemoglobin 13.5 g/dL Hematocrit 39.3 % Mean Corpuscular Volume 94.0 fL Mean Corpuscular Hemoglobin 32.3 pg Mean Corpuscular Hemoglobin Concent 34.4 g/dl Platelet Count 146 K/uL Mean Platelet Volume 11.1 fL Neutrophils (%) (Auto) 84.7 % Lymphocytes (%) (Auto) 6.4 % Monocytes (%) (Auto) 6.5 % Eosinophils (%) (Auto) 1.5 % Basophils (%) (Auto) 0.6 % Neutrophils # (Auto) 6.12 K/uL Lymphocytes # (Auto) 0.46 K/uL Monocytes # (Auto) 0.47 K/uL Eosinophils # (Auto) 0.11 K/uL Basophils # (Auto) 0.04 K/uL RDW Standard Deviation 48.2 fL RDW Coefficient of Variation 14.0 % Immature Granulocyte % (Auto) 0.3 % Immature Granulocyte # (Auto) 0.02 K/uL Prothrombin Time 10.6 SECONDS Prothromb Time International Ratio 1.0 Activated Partial Thromboplast Time 25.0 SECONDS Partial Thromboplastin Ratio 1.0 Sodium Level 143 mmol/L Potassium Level 4.1 mmol/L Chloride Level 111 mmol/L Carbon Dioxide Level 27 mmol/L Anion Gap 5.0 mmol/L Blood Urea Nitrogen 24 mg/dl Creatinine 1.21 mg/dl Est Creatinine Clear Calc Drug Dose 45.2 ml/min Estimated GFR () 62.5 Estimated GFR (Non- 53.9 BUN/Creatinine Ratio 19.8 Random Glucose 137 mg/dl Calcium Level 9.3 mg/dl Troponin I 0.719 ng/ml Pro-B-Type Natriuretic Peptide 71394 pg/ml Imaging: Consistent with CHF EKG: Sinus rhythm with left bundle branch block, QRS duration is 166 ms Telemetry reviewed: Sinus rhythm with left bundle-branch block, possible occasional pacing Assessment & Plan #1. Congestive heart failure: The immediate cause of his congestive heart failure appears to be severe left ventricular dysfunction, I don't know how acute that was. In the fall of 2015 his ejection fraction was normal, he had left bundle branch block at that time but we don't know the duration preceding that. He does not have much the way of symptoms until for 5 days prior to admission and his troponin is somewhat elevated. His lung findings are not severe, his x-ray does not show severe pulmonary edema but is consistent with the cause of his symptoms. Agree with diuresis but watch his blood pressure and renal function. #2. Left ventricular dysfunction: The cause isn't clear nor is the duration except that it occurred sometime since the fall. It could be a nonischemic cardiomyopathy, possibly from left bundle branch block or other causes, or it is conceivable it is an ischemic cardiac myopathy and we cannot read his ECG for ischemia due to the left bundle branch block. I think it would be reasonable to perform cardiac catheterization, especially given his troponin elevation. I discussed this with him and he is willing, we will try to plan on that tomorrow after evaluating him in the morning. #3. Dizziness and weakness: He has had this complaint for a long time in the office, we have never been able to identify cause. I've never seen him have it, this morning it evidently started suddenly in the bathroom, and continued while he is in bed. His blood pressure does not slow enough to cause it and his rhythm is stable. I don't have a good explanation for this but I suspect it is noncardiac. #4. Elevated troponin: His troponin was elevated on arrival, subsequent measurements were canceled although I'm not sure why. We need to get another measurement to see what the trend is that I will order that. This could be demand ischemia, but I can't rule out an acute cardiac event. Thank you for allowing me to participate in his care.
[2017-09-19 10:19] LABS: CALCIUM 9.6 mg/dl (8.5-10.1); CREATININE 1.35 mg/dl (0.60-1.40); POTASSIUM 3.7 mmol/L (3.5-5.1)
--- NOTE | 2017-09-19 10:41 | Clinical Documentation Query ---
QUERY 1 OF 3 CLINICAL DOCUMENTATION QUERY LUCIA Walsh : In your clinical opinion is this patient being managed for: (x ) NSTEMI ( ) Type II DE due to demand ischemia ( ) Not Agree ( ) Other explanation of clinical findings (Please Explain) ( ) Unable to determine (Please Define) ( ) Need to Discuss The medical record reflects the following clinical findings, treatment, and risk factors. Clinical Indicators: 87 yo male presenting with constant dyspnea and pleuritic chest pain. ECHO with significant LV function decline, Akinetic inferior, septal castro. Severely hypokinetic anteroseptal, inferlateral castro. EF 20-25% with grade II diastolic dysfunction. Initial trop 0.719. Treatment: tele, cardiology consult, plan for cardiac cath, ASA, lovenox, NTG sl, IV lasix, repeat trop pending. Risk Factors: age, new onset acute CHF, HTN Query 2 of 3 In your clinical opinion is this patient being managed for: (x ) Acute combined systolic and diastolic CHF ( ) Not Agree ( ) Other explanation of clinical findings (Please Explain) ( ) Unable to determine (Please Define) ( ) Need to Discuss The medical record reflects the following clinical findings, treatment, and risk factors. Clinical Indicators: ECHO showed EF 20-25% with grade II diastolic dysfunction. Treatment: tele, IV lasix, cardiology consult, ECHO, I/O, daily wts, monitor PRP's Risk Factors: age, HTN, LBBB QUERY 3 OF 3 In your clinical opinion is this patient being managed for: ( x ) Chronic kidney disease, stage 2-3 ( ) Not Agree ( ) Other explanation of clinical findings (Please Explain) ( ) Unable to determine (Please Define) ( ) Need to Discuss The medical record reflects the following clinical findings, treatment, and risk factors. Clinical Indicators: Review of historical GFR revealed range of 47.2-79.3 over the past 2 years Treatment: monitor PRP's Risk Factors: HTN, age Please clarify and document your clinical opinion in the progress notes and discharge summary. Terms such as "probable", "suspected", "likely", "questionable", "possible", or "still to be ruled out" are acceptable. IF IN AGREEMENT, YOU MUST DOCUMENT ABOVE DIAGNOSTIC STATEMENT IN DAILY PROGRESS NOTES AND DISCHARGE SUMMARY. This document is not part of the patient's record. Thank You, Ladonna Song RN [phone]
--- NOTE | 2017-09-19 13:53 | Progress Note ---
Subjective Date of Service: Sep 19, 2017. Subjective Pt evaluation today including: conversation w/ patient, physical exam, lab review, review of studies, conversation w/ bridal stylist sales consultant, review of inpatient medication list Pain: no pain PO Intake: adequate Voiding: no voiding problems patient admitted to urinating a lot after Lasix yesterday breathing improved reviewed labs, Cr up very slightly, troponin trending up as well but < 1 echo shows EF of 25% that is a new finding appreciate consultation from Dr. Millan, plan for heart cath tomorrow Problem List Medical Problems: (1) Second degree heart block Status: Acute Review of Systems Constitutional: + weakness, + fatigue Respiratory: + dyspnea on exertion Cardiac: + edema All Other Systems: Reviewed and Negative Medications Current Inpatient Medications Medications (Trade) Dose Ordered Sig/Rhonda Route Start Time Stop Time Status Last Admin Dose Admin Aspirin (Ecotrin Tab) 81 mg BID PO 09/18/17 21:00 10/18/17 20:59 09/19/17 08:03 81 MG Finasteride (Proscar Tab) 5 mg QAM PO 09/19/17 09:00 10/19/17 08:59 09/19/17 08:02 5 MG Simvastatin (Zocor Tab) 80 mg QPM PO 09/18/17 21:00 10/18/17 20:59 09/18/17 21:09 80 MG Terazosin HCl (Hytrin Cap) 10 mg DAILY PO 09/19/17 09:00 10/19/17 08:59 09/19/17 08:02 10 MG Acetaminophen (Tylenol Tab) 650 mg Q4H PRN PO 09/18/17 13:00 10/18/17 12:59 Al Hydrox/Mg Hydrox/Simethicone (Maalox Max Susp) 15 ml Q4H PRN PO 09/18/17 13:00 10/18/17 12:59 Magnesium Hydroxide (Milk Of Magnesia Susp) 30 ml Q12H PRN PO 09/18/17 13:00 10/18/17 12:59 Ondansetron HCl (Zofran Inj) 4 mg Q6H PRN IV 09/18/17 13:00 10/18/17 12:59 Nitroglycerin (Nitrostat Tab) 0.4 mg UD PRN SL 09/18/17 13:00 10/18/17 12:59 Polyethylene (Miralax Powder Packet) 17 gm DAILY PRN PO 09/18/17 13:00 10/18/17 12:59 Potassium Chloride (Klor-Con M10) 10 meq BID PO 09/18/17 21:00 10/18/17 20:59 09/19/17 08:03 10 MEQ Enoxaparin Sodium (Lovenox Inj) 80 mg Q12@0600,1800 SQ 09/18/17 16:00 10/18/17 15:59 09/19/17 04:40 80 MG Objective Vital Signs Date Time Temp Pulse Resp B/P (MAP) Pulse Ox O2 Delivery O2 Flow Rate FiO2 09/19/17 11:31 36.3 71 18 114/67 (83) 92 Nasal Cannula 4.0 09/19/17 09:24 75 18 104/63 (77) 93 Nasal Cannula 5.0 09/19/17 09:23 79 18 116/62 (80) 90 Nasal Cannula 4.0 09/19/17 09:11 36.4 74 18 101/60 (74) 92 Nasal Cannula 4.0 09/19/17 09:07 36.4 83 18 95/62 (73) 86 Room Air 09/19/17 08:00 Room Air 09/19/17 07:29 36.9 69 18 125/79 (94) 93 Room Air 09/19/17 04:00 Room Air 09/19/17 02:55 37.0 73 20 149/79 (102) 93 Room Air 09/19/17 00:00 Room Air 09/18/17 23:59 36.9 93 18 119/72 (88) 94 Room Air 09/18/17 20:09 95 Room Air 09/18/17 19:30 36.5 80 18 119/70 (86) 90 Room Air 09/18/17 16:02 95 Room Air 09/18/17 16:02 95 Room Air 09/18/17 13:54 95 24 150/91 95 Room Air Physical Exam General Appearance: no apparent distress, + thin Eyes: normal inspection, EOMI, sclerae normal ENT: normal ENT inspection, hearing grossly normal, pharynx normal Neck: supple, no adenopathy, trachea midline, + JVD Respiratory/Chest: chest non-tender, no respiratory distress, no accessory muscle use, + decreased breath sounds, + rales (bases) Cardiovascular: regular rate, rhythm, no gallop, no JVD, no murmur Abdomen: normal bowel sounds, non tender, soft, no organomegaly Extremities: normal range of motion, non-tender, normal inspection, no calf tenderness, pelvis stable, + pedal edema (trace, bilaterally) Neurologic/Psychiatric: stock analyst II-XII nml as tested, no motor/sensory deficits, alert, normal mood/affect, oriented x 3 Skin: normal color, warm/dry, no rash Laboratory Results Last 24 Hours Test 09/19/17 09:46 Sodium Level 142 mmol/L Potassium Level 3.7 mmol/L Chloride Level 106 mmol/L Carbon Dioxide Level 29 mmol/L Anion Gap 7.0 mmol/L Blood Urea Nitrogen 25 mg/dl Creatinine 1.35 mg/dl Est Creatinine Clear Calc Drug Dose 40.5 ml/min Estimated GFR () 54.7 Estimated GFR (Non- 47.2 BUN/Creatinine Ratio 18.6 Random Glucose 128 mg/dl Calcium Level 9.6 mg/dl Troponin I 0.797 ng/ml Assessment and Plan 87 y/o M Hx BPH, HPL, LBBB, pacer due to 3rd degree heart block 2016. Pt presents with SOB, orthopnea and pleuritic CP when lying flat. He denies a productive cough, fever, N/V or episodes of diaphoresis. The pt does not have a history of CHF or CAD. - Acute systolic heart failure: EF is 25%, this is a new diagnosis on this admission, prior echo showed preserved EF diuresed nearly 2 liters with Lasix yesterday continue fluid restriction, daily weights will need low dose SHELLEY and beta arlyn when blood pressure tolerates plan for [facility] tomorrow to work up cardiomyopathy - NSTEMI: mild rise in troponin, denies chest pain, EKG cannot be interpreted due to LBBB Lovenox q12 for full anticoagulation troponin up slightly plan for [facility] tomorrow - CKD stage III: stable - Acute hypoxic respiratory failure: due to pulmonary edema will resolve with diuresis - BPH: continue home meds plan for [facility] tomorrow, Lasix as needed to maintain euvolemia full code
[2017-09-19] MEDS: SIMVASTATIN 80 MG TAB PO SCH (21:33)
[2017-09-20] VITALS (15 sets, daily range): BP systolic 112–139; BP diastolic 58–79; PULSE 59–79; TEMP 36.2–36.7; O2SAT 91–98
[2017-09-20 05:51] LABS: BASO % 0.7 %; BASO ABS # 0.03 K/uL (0-0.2); EOS % 3.7 %; EOS ABS # 0.16 K/uL (0-0.5); HEMATOCRIT 33.6 % (42-52); HEMOGLOBIN 11.3 g/dL (14.0-18.0); IG# 0.01 K/uL (0.00-0.02); LYMPH % 13.6 %; LYMPH ABS # 0.58 K/uL (1.2-3.4); MEAN CELL VOLUME 92.6 fL (80-100); MEAN CORPUSCULAR HEMOGLOBIN 31.1 pg (25-34); MEAN CORPUSCULAR HGB CONC 33.6 g/dl (32-36); MEAN PLATELET VOLUME 11.7 fL (7.4-10.4); MONO ABS # 0.34 K/uL (0.11-0.59); NEUT % 73.8 %; NEUT ABS # 3.15 K/uL (1.4-6.5); PLATELET COUNT 128 K/uL (130-400); RED CELL DISTRIBUTION WIDTH CV 13.7 % (11.5-14.5); RED CELL DISTRIBUTION WIDTH SD 46.2 fL (36.4-46.3); WHITE BLOOD COUNT 4.27 K/uL (4.8-10.8)
[2017-09-20] MEDS: ENOXAPARIN 80 MG/0.8 ML SYR SQ SCH ×2 (06:00→17:27)
[2017-09-20 06:03] LABS: CALCIUM 8.9 mg/dl (8.5-10.1); CREATININE 1.29 mg/dl (0.60-1.40); POTASSIUM 3.8 mmol/L (3.5-5.1)
[2017-09-20] MEDS: POTASSIUM CHLORIDE 10 MEQ TABCR PO SCH ×2 (07:36→19:58)
[2017-09-20] MEDS: ASPIRIN 81 MG ECTAB PO SCH ×2 (07:36→19:57)
[2017-09-20] MEDS: FINASTERIDE 5 MG TAB PO SCH (07:37)
--- NOTE | 2017-09-20 10:35 | Pre Sedation Assessment ---
Pre Sedation Assessment General Date of Sedation: Sep 20, 2017. Vital Signs Past 12 Hours Date Time Temp Pulse Resp B/P (MAP) Pulse Ox O2 Delivery O2 Flow Rate FiO2 09/20/17 10:13 36.2 72 20 96 2.0 09/20/17 08:19 36.2 72 20 114/73 (87) 96 Nasal Cannula 2.0 09/20/17 08:00 98 Nasal Cannula 2.0 Humidified Oxygen 09/20/17 04:05 Nasal Cannula 4.0 09/20/17 02:50 36.5 71 18 98 Nasal Cannula 4.0 09/20/17 00:05 Nasal Cannula 4.0 09/19/17 23:38 36.9 71 18 109/68 (82) 96 Nasal Cannula 2.0 Humidified Oxygen Review Cardiovascular: regular rate, rhythm Lungs: lungs clear Pre-Sedation Airway Assessment Smoking Status: Never Smoker Oral Cavity: Dentures Mallampati Classification: Class II ASA Classification: Class III NPO Status Date of Last Intake of Fluids: Sep 19, 2017 Time of Last Intake of Fluids: 2300 Date of Last Intake of Solids: Sep 19, 2017 Time of Last Intake of Solids: 1800 Procedure Planning Contraindications for Sedation: None Current Medications Reviewed: Yes Notes The planned sedation has been discussed with the patient. Informed Consent was obtained. I have identified the patient, determined the appropriateness of sedation and have assessed the patient immediately prior to the procedure. All medicine(s) and interventions are by my order.
[2017-09-20] MEDS ORDERED: MIDAZOLAM HCL 1 MG/ML 2ML VIAL ONE (12:12)
[2017-09-20] MEDS ORDERED: FENTANYL CITRATE INJ 50 MCG/1 ML 2 ML VIAL ONE (12:12)
[2017-09-20] MEDS ORDERED: NiCARDipine HCL INJ 2.5 MG/ML 10 ML AMP ONE (12:12)
[2017-09-20] MEDS ORDERED: HEPARIN SOD (PORCINE) 1000 UNIT/ML 10 ML VIAL ONE (12:12)
[2017-09-20] MEDS ORDERED: NITROGLYCERIN/D5W 100MCG/ML 20ML SYR ONE (12:14)
[2017-09-20] MEDS ORDERED: ADENOSINE IV SOLN 3 MG/ML 20 ML VIAL ONE (12:53)
--- NOTE | 2017-09-20 13:01 | Cardiology Procedure Brief Nt ---
Preliminary Cardiology Note Procedure Date Sep 20, 2017. Pre-Procedure Diagnosis Cardiomyopathy Post-Procedure Diagnosis CAD Procedure(s) Performed Cardiac catheterization Computer Programming Professor Aayush Business Intelligence Consultant(s) Pratima Estimated Blood Loss < 25 ml Preliminary Findings CAD. please see full report Recommendations FFR of LAD Specimens none Complication(s) None Disposition remaining in forestry farm laborer for FFR.
[2017-09-20] MEDS ORDERED: SODIUM CHLORIDE 0.9% 1000ML 1,000 ML IV SCH (13:15)
--- NOTE | 2017-09-20 13:15 | Cardiac Catheterization ---
Procedure Note Procedure Date Sep 20, 2017. Pre-Procedure Diagnosis CHF, Cardiomyopathy AUC Score 7 Post-Procedure Diagnosis Severe CAD Procedure(s) Performed Coronary Angiography, Left Heart Cath Roving Changer Dr. Looney Chief Inspector(s) Pratima Estimated Blood Loss < 25 ml Medication(s) Fentanyl, Heparin, Nicardipine, Versed, Lidocaine 1% Summary of Findings Coronary angiography: 1. Left main coronary artery: LMCA was large in caliber without obstructive CAD. Calcifications noted under fluoroscopy. 2. Left anterior descending: The LAD is a large caliber vessel that wraps around the apex. Proximal LAD at the bifurcation of a large D1 had a 50-60% stenosis which appeared hazy in some views. This involved the ostium of the large D1. There is also a large D2. Remainder of LAD without significant CAD. 3. Circumflex: Large caliber circumflex. Proximal circumflex 20-30%. There is a long OM1 with ostial subtotal occlusion, 99%. There appears to be faint antegrade flow and also possible [id number] collaterals filling the distal portion of the vessel. Very small caliber OM2. Medium caliber OM3 4. Right coronary artery: The RCA is large and dominant. Proximal RCA 30%. PL and PDA without significant CAD. Faint right to left collaterals noted. Left heart catheterization: 1. Left ventriculography was not performed as patient had recent echo. 2. No significant aortic stenosis. 3. Mildly elevated LVEDP; 13mmHg. Sedation start time: 12:26 p.m. Sedation end time: 12:50 p.m. Impression: 1. Severe CAD involving OM1. 2. Mild and moderate nonobstructive CAD involving the RCA, circumflex, and LAD. 3. Mildly elevated LVEDP. 4. No aortic stenosis. Plan: 1. Interventional Cardiology reviewed imaging and plans for FFR of proximal LAD. 2. Optimize medical therapy. 3. Continue to follow with Dr. Millan. Hemodynamics Rest Ao: 119/46 Final Ao: 127/54 LV: 128/3/13 Recommendations Medical therapy and/or Counseling, management recommendations (ffr) Specimens None Radiation Exposure (mGy) 1204 mGy. Fluoro time 2.7 min Contrast (mls) 80 ml Procedural Complication(s) None Disposition veterinary laboratory technician for FFR ACC Data Cardiac Status Clinical evaluation leading to the procedure CAD Presntation: No Sxs, no angina Anginal Classification: No symptoms Heart Failure: NYHA Class: CCS III Cardiogenic Shock w/in 24Hrs: No Cardiac Arrest w/in 24Hrs: No Imaging studies past 6 months: Yes (echo) Stress studies past 6 months: No Standard Exercise Stress Test: No Stress Echocardiogram: No Stress Testing w/SPECT MPI: No Cardiac CTA: No Coronary Anatomy Dominant: Right Left Main (% Stenosis): Normal LAD (% Stenosis): Proximal (50-60%) D1 (% Stenosis): Normal D2 (% Stenosis): Normal Circumflex (% Stenosis): Proximal (20%) OM1 (% Stenosis): Ostial (99%) OM2 (% Stenosis): Normal RCA (% Stenosis): Proximal (30%) R PDA (% Stenosis): Normal R PL1 (% Stenosis): Normal Left Ventricular Angiography EF (%): n/a Diagnostic Physician's Name: Rubén Looney MD Closure Device Percutaneous Entry Location: Radial Closure Device: Radial Band Recommendations: management recommendations (FFR and optimize medical therapy)
--- NOTE | 2017-09-20 13:16 | Consultant Recommendations ---
Geosciences Faculty Member Recommendations Date of Service Sep 20, 2017. Geosciences Faculty Member Recommendations ACTIVITY RECOMMENDATIONS: Excess manipulation of the wrist should be avoided for the next 24-48 hours. * No lifting over 2 pounds (approximately a 1/2 gallon of milk) with the utilized arm for 24 hours. * No strenuous activity such as bowling or tennis for 3 days. * Keep the site of the procedure covered with a bandage for 24 hours. *You may shower the day after the procedure. Do not take a tub bath or submerge the puncture site in water for the next 3 days. *Do not operate any motorized equipment for 3 days. SPECIAL CARE INSTRUCTIONS: The site may be slightly bruised and sore following your procedure. Should any of the following occur, contact the Dr. who performed your procedure. 1. Redness/inflammation, swelling, chills, or fever, or colored drainage at procedure site within 3-7 days after your procedure. 2. Coldness, discoloration, ongoing numbness, severe pain, or swelling. Expect mild tingling of hand and tenderness at the puncture site for up to three days. If this persists beyond three days, or other symptoms develop, notify the Dr. who performed your procedure. BLEEDING: If the procedure site on your wrist begins to bleed, do not panic 1. Place 1 or 2 fingers firmly just slightly above the insertion site to stop the bleeding. You may be able to feel your pulse as you hold pressure. 2. Lift your finger after 5 minutes to see if the bleeding has stopped. 3. Once the bleeding has stopped, gently wipe the wrist area clean with a bandage. * If the bleeding from your wrist does not stop after 10 minutes, or if there is a large amount of bleeding or spurting, call 911 (do not drive yourself to the hospital). SKIN IRRITATION: * You may experience some redness and/or swelling in the area where radiation was administered. If any skin irritation occurs, please contact your family physician. FOLLOW UP VISIT: Keep any scheduled doctor appointments.
--- NOTE | 2017-09-20 13:35 | Cardiac Catheterization ---
Procedure Note Procedure Date Sep 20, 2017. Pre-Procedure Diagnosis Cardiomyopathy AUC Score 7 Post-Procedure Diagnosis Moderate CAD Procedure(s) Performed Fractional Flow [place] Procedural Nurse Duncan Rn Perioperative(s) Pratima Estimated Blood Loss 5 Medication(s) Heparin, Nitroglycerin Summary of Findings For full details of patient's coronary angiography please see cath report dictated by Dr. Looney. Patient found to have intermediate proximal-mid LAD disease. Decision made to further evaluated with FFR. JL3.5 guide FFR wire placed into distal vessel iFR 0.91 FFR 0.89 Post procedure angiography showed no complications. Summary: 1. Non-obstructive intermediate LAD disease by FFR. Hemodynamics Rest Ao: 119/47/97 Final Ao: 126/43/82 LV: -- Recommendations Medical therapy and/or Counseling Specimens None Radiation Exposure (mGy) 1747 Contrast (mls) 120 Visi Fluids (cc crystalloids) 80 NSS Drains None Anesthesia Moderate Procedural Complication(s) None Disposition PCU ACC Data Cardiac Status Clinical evaluation leading to the procedure CAD Presntation: Non STEMI Anginal Classification: CCS III Heart Failure: No, NYHA Class: CCS I Cardiogenic Shock w/in 24Hrs: No Cardiac Arrest w/in 24Hrs: Yes Imaging studies past 6 months: No Closure Device Percutaneous Entry Location: Radial Closure Device: Radial Band Recommendations: Medical therapy and/or Counseling Intraprocedure Events Significant Dissection: No Perforation: No
[2017-09-20] MEDS ORDERED: LISINOPRIL 2.5 MG TAB PO STA (14:01)
[2017-09-20] MEDS ORDERED: METOPROLOL SUCC 25MG EXT REL TAB PO STA (14:01)
--- NOTE | 2017-09-20 14:01 | Cardiology Follow-Up ---
Subjective Date of Service: Sep 20, 2017. History of Present Illness This is a very pleasant 87-year-old gentleman who has a history of intermittent lightheadedness, dizziness, presyncope as well as at least 5 syncopal events historically. He did have a positive Lyme screen, and he was identified as having periods of complete heart block on telemetry monitoring in 2015. 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 He seemed to have return of AV conduction with a left bundle branch block and first-degree AV block and his temporary pacemaker was removed, he had a stress test performed on 04/23/2016 where he had no AV block. Then on the evening of 04/23/2016 he developed complete heart block with pauses up to 17 seconds in duration associated with syncope. He therefore had another temporary pacemaker implanted followed by permanent pacemaker implant on 04/24/2016. He has had no further presyncope or syncope. He is however troubled by lightheadedness. He is not been able to describe it very well, it generally occurs while he is standing although not necessarily with standing up. It can sometimes last all day. He had not checked his blood pressure while he is having it in the past. This has been a long-standing issue and seems to be separate from his presyncope and syncope. He was admitted having a relatively brief period of shortness of breath predominantly characterized by orthopnea. This appears to have occurred only 3 or 4 days prior to admission, prior to that he reports no orthopnea, no PND and no dyspnea on exertion. He has not had any chest discomfort. He was observed to be in heart failure and was admitted, echocardiography shows severe left ventricular dysfunction which was new compared to 2016. Catheterization today shows some coronary artery disease but nothing to explain the magnitude of his cardiomyopathy. Social History Smoking Status: Never Smoker History of Alcohol Use: No Review of Systems Respiratory: + dyspnea on exertion Cardiac: + edema Medications Cardiovascular: Item Value Date Time Aspirin 81 mg 09/18/172099 (Ecotrin Tab) BID/PO 09/20/17 0736 Simvastatin 80 mg 09/18/172099 (Zocor Tab) QPM/PO 09/19/172132 Potassium Chloride 10 meq 09/18/172099 (Klor-Con M10) BID/PO 09/20/17 0736 Objective Vital Signs Past 12 Hours Date Time Temp Pulse Resp B/P (MAP) Pulse Ox O2 Delivery O2 Flow Rate FiO2 09/20/17 13:52 36.7 65 20 119/69 (86) 94 Nasal Cannula 2.0 09/20/17 13:34 36.4 66 18 138/73 (94) 93 Nasal Cannula 09/20/17 13:27 72 18 122/73 (89) 94 Mask 2 09/20/17 13:12 70 18 132/72 (92) 93 Mask 3 09/20/17 12:00 Room Air 09/20/17 10:30 36.5 66 18 131/74 (93) 96 Room Air 09/20/17 10:13 36.2 72 20 96 2.0 09/20/17 08:19 36.2 72 20 114/73 (87) 96 Nasal Cannula 2.0 09/20/17 08:00 98 Nasal Cannula 2.0 Humidified Oxygen 09/20/17 04:05 Nasal Cannula 4.0 09/20/17 02:50 36.5 71 18 98 Nasal Cannula 4.0 Last Recorded Weight-Kilograms: 72.200 Physical Exam Constitutional: General Apperance: heathly-appearing Level of Distress: NAD Lungs: Respiratory effort: no dyspnea, good air movement Auscultation: no wheezing, rales/crackles on the left (slight), rales/ crackles on the right (slight) Cardiovascular: Heart Auscultation: RRR, no murmurs, no rubs, no gallops Peripheral Pulses: Bruits: none appreciated Extremities: no edema Data Laboratory Results: Last 24 Hours Test 09/20/17 05:14 White Blood Count 4.27 K/uL Red Blood Count 3.63 M/uL Hemoglobin 11.3 g/dL Hematocrit 33.6 % Mean Corpuscular Volume 92.6 fL Mean Corpuscular Hemoglobin 31.1 pg Mean Corpuscular Hemoglobin Concent 33.6 g/dl Platelet Count 128 K/uL Mean Platelet Volume 11.7 fL Neutrophils (%) (Auto) 73.8 % Lymphocytes (%) (Auto) 13.6 % Monocytes (%) (Auto) 8.0 % Eosinophils (%) (Auto) 3.7 % Basophils (%) (Auto) 0.7 % Neutrophils # (Auto) 3.15 K/uL Lymphocytes # (Auto) 0.58 K/uL Monocytes # (Auto) 0.34 K/uL Eosinophils # (Auto) 0.16 K/uL Basophils # (Auto) 0.03 K/uL RDW Standard Deviation 46.2 fL RDW Coefficient of Variation 13.7 % Immature Granulocyte % (Auto) 0.2 % Immature Granulocyte # (Auto) 0.01 K/uL Sodium Level 142 mmol/L Potassium Level 3.8 mmol/L Chloride Level 107 mmol/L Carbon Dioxide Level 30 mmol/L Anion Gap 5.0 mmol/L Blood Urea Nitrogen 34 mg/dl Creatinine 1.29 mg/dl Est Creatinine Clear Calc Drug Dose 42.0 ml/min Estimated GFR () 57.8 Estimated GFR (Non- 49.9 BUN/Creatinine Ratio 26.0 Random Glucose 97 mg/dl Calcium Level 8.9 mg/dl Troponin I 0.444 ng/ml Assessment and Plan #1. Congestive heart failure: The immediate cause of his congestive heart failure appears to be severe left ventricular dysfunction, I don't know how acute that was. In the fall of 2015 his ejection fraction was normal, he had left bundle branch block at that time but we don't know the duration preceding that. He does not have much the way of symptoms until for 5 days prior to admission. His lung findings are not severe, his x-ray does not show severe pulmonary edema but is consistent with the cause of his symptoms. His LVEDP today was nearly normal therefore he has responded well to diuresis and I would not diurese much more. #2. 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 It could be idiopathic or could be due to his left bundle branch block. We need to try to get him on heart failure medications, I'm going to start low-dose SHELLEY inhibitor should and beta-blockade today. If he responds with an improvement in his left ventricular function we can continue these medications alone, if not we need to consider biventricular pacing to correct his dyssynchrony but that is a future consideration. #3. Coronary artery disease: He does have some coronary disease by catheterization, he is already on aspirin and a statin. I'm not going to alter that treatment now. That is not likely a cause of his cardiomyopathy. Thank you for allowing me to participate in his care.
--- NOTE | 2017-09-20 16:00 | Progress Note ---
Subjective Date of Service: Sep 20, 2017. Subjective Pt evaluation today including: conversation w/ patient, physical exam, lab review, review of studies, review of inpatient medication list Pain: no chest pain PO Intake: adequate Voiding: no voiding problems patient breathing well today, titrated off of oxygen no chest pain or pressure no edema heart catheterization in the afternoon, showed diffuse disease but only moderate LAD further evaluated with FFR, only moderate, medical therapy recommended plan to transfer back to telemetry Problem List Medical Problems: (1) Second degree heart block Status: Acute Review of Systems Constitutional: + weakness, + fatigue Respiratory: + dyspnea on exertion All Other Systems: Reviewed and Negative Medications Current Inpatient Medications Medications (Trade) Dose Ordered Sig/Rhonda Route Start Time Stop Time Status Last Admin Dose Admin Aspirin (Ecotrin Tab) 81 mg BID PO 09/18/17 21:00 10/18/17 20:59 09/20/17 07:36 81 MG Finasteride (Proscar Tab) 5 mg QAM PO 09/19/17 09:00 10/19/17 08:59 09/20/17 07:37 5 MG Simvastatin (Zocor Tab) 80 mg QPM PO 09/18/17 21:00 10/18/17 20:59 09/19/17 21:33 80 MG Terazosin HCl (Hytrin Cap) 10 mg DAILY PO 09/19/17 09:00 10/19/17 08:59 09/20/17 07:37 10 MG Acetaminophen (Tylenol Tab) 650 mg Q4H PRN PO 09/18/17 13:00 10/18/17 12:59 09/19/17 14:04 650 MG Al Hydrox/Mg Hydrox/Simethicone (Maalox Max Susp) 15 ml Q4H PRN PO 09/18/17 13:00 10/18/17 12:59 Magnesium Hydroxide (Milk Of Magnesia Susp) 30 ml Q12H PRN PO 09/18/17 13:00 10/18/17 12:59 Ondansetron HCl (Zofran Inj) 4 mg Q6H PRN IV 09/18/17 13:00 10/18/17 12:59 Nitroglycerin (Nitrostat Tab) 0.4 mg UD PRN SL 09/18/17 13:00 10/18/17 12:59 Polyethylene (Miralax Powder Packet) 17 gm DAILY PRN PO 09/18/17 13:00 10/18/17 12:59 Potassium Chloride (Klor-Con M10) 10 meq BID PO 09/18/17 21:00 10/18/17 20:59 09/20/17 07:36 10 MEQ Enoxaparin Sodium (Lovenox Inj) 70 mg Q12@0600,1800 SQ 09/20/17 18:00 10/20/17 17:59 Sodium Chloride 1,000 ml @ 100 mls/hr Q10H IV 09/20/17 13:15 09/20/17 18:15 09/20/17 15:01 100 MLS/HR Metoprolol Succinate (Toprol Xl Tab) 25 mg QAM PO 09/21/17 09:00 10/21/17 08:59 Lisinopril (Zestril Tab) 2.5 mg QAM PO 09/21/17 09:00 10/21/17 08:59 Objective Vital Signs Date Time Temp Pulse Resp B/P (MAP) Pulse Ox O2 Delivery O2 Flow Rate FiO2 09/20/17 14:34 60 20 129/71 (90) 95 Nasal Cannula 2.0 09/20/17 14:16 36.7 59 20 130/67 (88) 95 Nasal Cannula 2.0 09/20/17 14:01 36.4 68 20 127/71 (89) 95 Nasal Cannula 2.0 09/20/17 13:52 36.7 65 20 119/69 (86) 94 Nasal Cannula 2.0 09/20/17 13:34 36.4 66 18 138/73 (94) 93 Nasal Cannula 09/20/17 13:27 72 18 122/73 (89) 94 Mask 2 09/20/17 13:12 70 18 132/72 (92) 93 Mask 3 09/20/17 12:00 Room Air 09/20/17 10:30 36.5 66 18 131/74 (93) 96 Room Air 09/20/17 10:13 36.2 72 20 96 2.0 09/20/17 08:19 36.2 72 20 114/73 (87) 96 Nasal Cannula 2.0 09/20/17 08:00 98 Nasal Cannula 2.0 Humidified Oxygen 09/20/17 04:05 Nasal Cannula 4.0 09/20/17 02:50 36.5 71 18 98 Nasal Cannula 4.0 09/20/17 00:05 Nasal Cannula 4.0 09/19/17 23:38 36.9 71 18 109/68 (82) 96 Nasal Cannula 2.0 Humidified Oxygen 09/19/17 20:00 Nasal Cannula 4.0 09/19/17 19:49 36.3 70 20 116/71 (86) 96 Nasal Cannula 2.0 Humidified Oxygen 09/19/17 16:01 95 Room Air Physical Exam General Appearance: WD/WN, no apparent distress Eyes: normal inspection, EOMI, sclerae normal ENT: normal ENT inspection, hearing grossly normal, pharynx normal Neck: supple, no adenopathy, no JVD, trachea midline Respiratory/Chest: chest non-tender, lungs clear, normal breath sounds, no respiratory distress, no accessory muscle use Cardiovascular: regular rate, rhythm, no edema, no gallop, no JVD, no murmur Abdomen: normal bowel sounds, non tender, soft, no organomegaly Extremities: normal range of motion, non-tender, normal inspection, no pedal edema, no calf tenderness, normal capillary refill, pelvis stable Neurologic/Psychiatric: agricultural produce washer II-XII nml as tested, no motor/sensory deficits, alert, normal mood/affect, oriented x 3 Skin: normal color, warm/dry, no rash Laboratory Results Last 24 Hours Test 09/20/17 05:14 White Blood Count 4.27 K/uL Red Blood Count 3.63 M/uL Hemoglobin 11.3 g/dL Hematocrit 33.6 % Mean Corpuscular Volume 92.6 fL Mean Corpuscular Hemoglobin 31.1 pg Mean Corpuscular Hemoglobin Concent 33.6 g/dl Platelet Count 128 K/uL Mean Platelet Volume 11.7 fL Neutrophils (%) (Auto) 73.8 % Lymphocytes (%) (Auto) 13.6 % Monocytes (%) (Auto) 8.0 % Eosinophils (%) (Auto) 3.7 % Basophils (%) (Auto) 0.7 % Neutrophils # (Auto) 3.15 K/uL Lymphocytes # (Auto) 0.58 K/uL Monocytes # (Auto) 0.34 K/uL Eosinophils # (Auto) 0.16 K/uL Basophils # (Auto) 0.03 K/uL RDW Standard Deviation 46.2 fL RDW Coefficient of Variation 13.7 % Immature Granulocyte % (Auto) 0.2 % Immature Granulocyte # (Auto) 0.01 K/uL Sodium Level 142 mmol/L Potassium Level 3.8 mmol/L Chloride Level 107 mmol/L Carbon Dioxide Level 30 mmol/L Anion Gap 5.0 mmol/L Blood Urea Nitrogen 34 mg/dl Creatinine 1.29 mg/dl Est Creatinine Clear Calc Drug Dose 42.0 ml/min Estimated GFR () 57.8 Estimated GFR (Non- 49.9 BUN/Creatinine Ratio 26.0 Random Glucose 97 mg/dl Calcium Level 8.9 mg/dl Troponin I 0.444 ng/ml Assessment and Plan 87 y/o M Hx BPH, HPL, LBBB, pacer due to 3rd degree heart block 2016. Pt presents with SOB, orthopnea and pleuritic CP when lying flat. He denies a productive cough, fever, N/V or episodes of diaphoresis. The pt does not have a history of CHF or CAD. - Acute systolic heart failure: EF is 25%, this is a new diagnosis on this admission, prior echo showed preserved EF diuresed nearly 2 liters with Lasix on 09/18 continue fluid restriction, daily weights will need low dose SHELLEY and beta arlyn when blood pressure tolerates, cardiology will start today [facility] today, no significant coronary disease, thus this would be considered non -ischemic cardiomyopathy - NSTEMI: mild rise in troponin, denies chest pain, EKG cannot be interpreted due to LBBB Lovenox q12 for full anticoagulation, can continue this through tomorrow troponin up slightly no disease requiring stent today on [facility] - CKD stage III: stable - Acute hypoxic respiratory failure: due to pulmonary edema resolved with diuresis - BPH: continue home meds full code keep on tele, may be ready for discharge tomorrow, evaluate in the morning
--- NOTE | 2017-09-20 17:17 | Post Sedation Assessment ---
Post Sedation Assessment General Date of Sedation Sep 20, 2017. Vital Signs: Vital Signs Past 12 Hours Date Time Temp Pulse Resp B/P (MAP) Pulse Ox O2 Delivery O2 Flow Rate FiO2 09/20/17 16:49 60 131/79 (96) 96 Room Air 09/20/17 16:00 Room Air 09/20/17 15:35 137/74 (95) 95 Room Air 09/20/17 15:05 61 18 138/74 (95) 94 09/20/17 14:34 60 20 129/71 (90) 95 Nasal Cannula 2.0 09/20/17 14:16 36.7 59 20 130/67 (88) 95 Nasal Cannula 2.0 09/20/17 14:01 36.4 68 20 127/71 (89) 95 Nasal Cannula 2.0 09/20/17 13:52 36.7 65 20 119/69 (86) 94 Nasal Cannula 2.0 09/20/17 13:34 36.4 66 18 138/73 (94) 93 Nasal Cannula 09/20/17 13:27 72 18 122/73 (89) 94 Mask 2 09/20/17 13:12 70 18 132/72 (92) 93 Mask 3 09/20/17 12:00 Room Air 09/20/17 10:30 36.5 66 18 131/74 (93) 96 Room Air 09/20/17 10:13 36.2 72 20 96 2.0 09/20/17 08:19 36.2 72 20 114/73 (87) 96 Nasal Cannula 2.0 09/20/17 08:00 98 Nasal Cannula 2.0 Humidified Oxygen Post Procedure Recovery Score Activity: (2) Moves 4 extremities * Respiration: (2) Deep breath/cough Circulation: (2) +/-20% PreAnes Value Consciousness: (2) Fully Awake Oxygen Saturation: (1) O2 needed for >90% Post Anesthesia Score: 9 Discharge Sedation Level of Care: Fast Track Phase II Post Sedation Plan On clinical assessment, the patient appears to have tolerated the sedation without complications. Patient is recovering as anticipated. Patient will continue to be monitored by nursing and may be discharged when sedation discharge criteria are met per below protocol. Upon Completions of procedure and additional 15 minutes continue every 5 minute vital signs and the P.A.R. score; then discharge to a Phase I or Fast Track to Phase II per the following guidelines: * Discharge Patient to appropriate Phase II area if PAR is 8 or greater or return to pre- procedure baseline. The post - procedure orders will be as directed. * If PAR score is less than 8 or not return to pre-procedure baseline then patient will follow Phase I monitoring till PAR is reached for Phase II. The Phase I may be done in procedure room or may call to secure a Phase I area. * If naloxone or flumazenil are used for reversal, hold in Phase I for an additional 60 -120 minutes before discharge to Phase II. Please call the Sedation Physician to re-evaluate and complete post-note for discharge to Phase II area. Do NOT discharge from procedure sedation or Phase 1 until post- sedation evaluation note is complete by procedure /sedation MD Sedation Discharge Instructions to be given to the patient at discharge to home.
[2017-09-20] MEDS: SIMVASTATIN 80 MG TAB PO SCH (19:59)
[2017-09-21 04:04] VITALS: BP 135/72; PULSE 65; TEMP 36.8; O2SAT 93
[2017-09-21] MEDS: ENOXAPARIN 80 MG/0.8 ML SYR SQ SCH ×2 (05:17→17:43)
[2017-09-21 07:02] LABS: HEMATOCRIT 36.4 % (42-52); MEAN CELL VOLUME 93.1 fL (80-100); MEAN CORPUSCULAR HEMOGLOBIN 30.7 pg (25-34); MEAN PLATELET VOLUME 11.8 fL (7.4-10.4); PLATELET COUNT 125 K/uL (130-400); RED CELL DISTRIBUTION WIDTH CV 13.6 % (11.5-14.5); WHITE BLOOD COUNT 4.53 K/uL (4.8-10.8)
[2017-09-21] MEDS: ASPIRIN 81 MG ECTAB PO SCH ×2 (07:31→19:38)
[2017-09-21] MEDS: FINASTERIDE 5 MG TAB PO SCH (07:31)
[2017-09-21] MEDS: POTASSIUM CHLORIDE 10 MEQ TABCR PO SCH ×2 (07:32→19:39)
[2017-09-21] MEDS: METOPROLOL SUCC 25MG EXT REL TAB PO SCH (07:32)
[2017-09-21] MEDS: LISINOPRIL 2.5 MG TAB PO SCH (07:32)
[2017-09-21 07:34] LABS: CREATININE 1.16 mg/dl (0.60-1.40)
[2017-09-21 07:52] VITALS: BP 137/75; PULSE 66; TEMP 36.7; O2SAT 94
[2017-09-21 11:40] VITALS: BP 130/75; PULSE 69; TEMP 36.4; O2SAT 95
--- NOTE | 2017-09-21 12:02 | Progress Note ---
Subjective Date of Service: Sep 21, 2017. Subjective Pt evaluation today including: conversation w/ patient, conversation w/ family (son), physical exam, lab review, conversation w/ bank consultant, review of inpatient medication list Pain: no pain PO Intake: adequate Voiding: no voiding problems patient doing well today, breathing well had some dizziness when standing, resolved when laying down had a brief run of V tach on monitor, just several beats appreciate cardiology recommendations updated patient's son at the bedside Problem List Medical Problems: (1) Second degree heart block Status: Acute Review of Systems Constitutional: + weakness, + fatigue Neurologic: + balance problems (mild dizziness) All Other Systems: Reviewed and Negative Medications Current Inpatient Medications Medications (Trade) Dose Ordered Sig/Rhonda Route Start Time Stop Time Status Last Admin Dose Admin Aspirin (Ecotrin Tab) 81 mg BID PO 09/18/17 21:00 10/18/17 20:59 09/21/17 07:31 81 MG Finasteride (Proscar Tab) 5 mg QAM PO 09/19/17 09:00 10/19/17 08:59 09/21/17 07:31 5 MG Simvastatin (Zocor Tab) 80 mg QPM PO 09/18/17 21:00 10/18/17 20:59 09/20/17 19:59 80 MG Terazosin HCl (Hytrin Cap) 10 mg DAILY PO 09/19/17 09:00 10/19/17 08:59 09/21/17 07:31 10 MG Acetaminophen (Tylenol Tab) 650 mg Q4H PRN PO 09/18/17 13:00 10/18/17 12:59 09/19/17 14:04 650 MG Al Hydrox/Mg Hydrox/Simethicone (Maalox Max Susp) 15 ml Q4H PRN PO 09/18/17 13:00 10/18/17 12:59 Magnesium Hydroxide (Milk Of Magnesia Susp) 30 ml Q12H PRN PO 09/18/17 13:00 10/18/17 12:59 Ondansetron HCl (Zofran Inj) 4 mg Q6H PRN IV 09/18/17 13:00 10/18/17 12:59 Nitroglycerin (Nitrostat Tab) 0.4 mg UD PRN SL 09/18/17 13:00 10/18/17 12:59 Polyethylene (Miralax Powder Packet) 17 gm DAILY PRN PO 09/18/17 13:00 10/18/17 12:59 Potassium Chloride (Klor-Con M10) 10 meq BID PO 09/18/17 21:00 10/18/17 20:59 09/21/17 07:32 10 MEQ Enoxaparin Sodium (Lovenox Inj) 70 mg Q12@0600,1800 SQ 09/20/17 18:00 10/20/17 17:59 09/21/17 05:17 70 MG Metoprolol Succinate (Toprol Xl Tab) 25 mg QAM PO 09/21/17 09:00 10/21/17 08:59 09/21/17 07:32 25 MG Lisinopril (Zestril Tab) 2.5 mg QAM PO 09/21/17 09:00 10/21/17 08:59 09/21/17 07:32 2.5 MG Objective Vital Signs Date Time Temp Pulse Resp B/P (MAP) Pulse Ox O2 Delivery O2 Flow Rate FiO2 09/21/17 11:40 36.4 69 18 130/75 (93) 95 Room Air 09/21/17 08:00 Room Air 09/21/17 07:52 36.7 66 18 137/75 (95) 94 Room Air 09/21/17 04:10 Room Air 09/21/17 04:04 36.8 65 17 135/72 (93) 93 Room Air 09/21/17 00:00 Room Air 09/20/17 23:37 36.7 68 17 139/76 (97) 95 Room Air 09/20/17 20:00 Room Air 09/20/17 17:36 79 18 112/58 (76) 91 09/20/17 16:49 60 131/79 (96) 96 Room Air 09/20/17 16:00 Room Air 09/20/17 15:35 137/74 (95) 95 Room Air 09/20/17 15:05 61 18 138/74 (95) 94 09/20/17 14:34 60 20 129/71 (90) 95 Nasal Cannula 2.0 09/20/17 14:16 36.7 59 20 130/67 (88) 95 Nasal Cannula 2.0 09/20/17 14:01 36.4 68 20 127/71 (89) 95 Nasal Cannula 2.0 09/20/17 13:52 36.7 65 20 119/69 (86) 94 Nasal Cannula 2.0 09/20/17 13:34 36.4 66 18 138/73 (94) 93 Nasal Cannula 09/20/17 13:27 72 18 122/73 (89) 94 Mask 2 09/20/17 13:12 70 18 132/72 (92) 93 Mask 3 09/20/17 12:00 Room Air Physical Exam General Appearance: WD/WN, no apparent distress Eyes: normal inspection, EOMI, sclerae normal ENT: normal ENT inspection, hearing grossly normal, pharynx normal Neck: supple, no adenopathy, no JVD, trachea midline Respiratory/Chest: chest non-tender, lungs clear, normal breath sounds, no respiratory distress, no accessory muscle use Cardiovascular: regular rate, rhythm, no edema, no gallop, no JVD, no murmur Abdomen: normal bowel sounds, non tender, soft, no organomegaly Extremities: normal range of motion, non-tender, normal inspection, no pedal edema, no calf tenderness, pelvis stable Neurologic/Psychiatric: cafe assistant II-XII nml as tested, no motor/sensory deficits, alert, normal mood/affect, oriented x 3 Skin: normal color, warm/dry, no rash Laboratory Results Last 24 Hours Test 09/21/17 06:27 White Blood Count 4.53 K/uL Red Blood Count 3.91 M/uL Hemoglobin 12.0 g/dL Hematocrit 36.4 % Mean Corpuscular Volume 93.1 fL Mean Corpuscular Hemoglobin 30.7 pg Mean Corpuscular Hemoglobin Concent 33.0 g/dl RDW Standard Deviation 46.0 fL RDW Coefficient of Variation 13.6 % Platelet Count 125 K/uL Mean Platelet Volume 11.8 fL Creatinine 1.16 mg/dl Est Creatinine Clear Calc Drug Dose 45.1 ml/min Estimated GFR () 65.7 Estimated GFR (Non- 56.7 Assessment and Plan 87 y/o M Hx BPH, HPL, LBBB, pacer due to 3rd degree heart block 2015. Pt presents with SOB, orthopnea and pleuritic CP when lying flat. He denies a productive cough, fever, N/V or episodes of diaphoresis. The pt does not have a history of CHF or CAD. - Acute systolic heart failure: EF is 25%, this is a new diagnosis on this admission, prior echo showed preserved EF diuresed nearly 2 liters with Lasix on 09/18 continue fluid restriction, daily weights (down 8kg since admission) started on Lisinopril 2.5mg and metoprolol 25mg today [facility] today, no significant coronary disease, thus this would be considered non -ischemic cardiomyopathy will plan for d/c tomorrow - NSTEMI: mild rise in troponin, denies chest pain, EKG cannot be interpreted due to LBBB Lovenox q12 for full anticoagulation, can continue this through tonight then stop troponin up slightly no disease requiring stent, [facility] on 09/20 - CKD stage III: stable for several days - Acute hypoxic respiratory failure: due to pulmonary edema resolved with diuresis - BPH: continue home meds, have been causing dizziness, will look at list on discharge full code keep on tele, plan for d/c tomorrow
[2017-09-21 15:34] VITALS: BP 105/57; PULSE 62; TEMP 36.3; O2SAT 95
[2017-09-21 19:13] VITALS: BP 132/75; PULSE 72; TEMP 36.4; O2SAT 96
[2017-09-21] MEDS: SIMVASTATIN 80 MG TAB PO SCH (19:40)
[2017-09-21 23:40] VITALS: BP 143/68; PULSE 68; TEMP 36.6; O2SAT 97
[2017-09-22 03:57] VITALS: BP 157/75; PULSE 70; TEMP 36.6; O2SAT 96
[2017-09-22 07:36] VITALS: BP 141/75; PULSE 70; TEMP 36.3; O2SAT 94
[2017-09-22] MEDS: ASPIRIN 81 MG ECTAB PO SCH (08:13)
[2017-09-22] MEDS: METOPROLOL SUCC 25MG EXT REL TAB PO SCH (08:13)
[2017-09-22] MEDS: LISINOPRIL 2.5 MG TAB PO SCH (08:14)
[2017-09-22] MEDS: FINASTERIDE 5 MG TAB PO SCH (08:15)
[2017-09-22] MEDS: POTASSIUM CHLORIDE 10 MEQ TABCR PO SCH (08:16)
[2017-09-22 11:34] VITALS: BP 116/68; PULSE 68; TEMP 36.5; O2SAT 95
[2017-09-22] MEDS ORDERED: TPRSR25 PO (11:56)
[2017-09-22] MEDS ORDERED: LSN25 PO (11:56)
[2017-09-22] MEDS ORDERED: FRS/40 PO (11:56)
[2017-09-22 11:58] VITALS: BP 116/68; PULSE 68; TEMP 36.5; O2SAT 95
--- NOTE | 2017-09-22 12:05 | Discharge Instructions ---
Discharge Instructions Date of Service Sep 22, 2017. Admission Reason for Admission: CHF Discharge Discharge Diagnosis / Problem: Acute systolic heart failure, non-ischemic cardiomyopathy Discharge Goals Goal(s): Improve function, Increase independence, Improve disease control Activity Recommendations Activity Limitations: per Instructions/Follow-up section Lifting Limitations: none Exercise/Sports Limitations: gradually increase as tolerated May Resume Sexual Activity: after one week Shower/Bathe: no limitations Driving or Machine Use: no limitations . Instructions / Follow-Up Instructions / Follow-Up Medications: - TOPROL: 25mg daily, started for heart failure - LISINOPRIL: 2.5mg daily, started for heart failure - LASIX: 40mg tablet, use as needed for any weight gain, see instructions below Systolic heart failure, non-ischemic cardiomyopathy this is a new finding, your ejection fraction was low at 25%, normal is 55-65 % you had a heart catheterization to evaluate for coronary disease, this did not show any coronary disease treatment includes Toprol and Lisinopril to try to improve heart function other component is volume control, which will include low sodium diet, fluid restriction and using Lasix (water pill) when needed your weight today is 68.8kg (151 pounds), please weigh yourself when you go home and write down what your scale reads weigh yourself every morning at the same time (before you eat breakfast, after you urinate, with just underwear) if at any time your weight goes up by 2-3 pounds, you should take the Lasix and call Dr. Millan's office for further instructions Dizziness: as we discussed, likely from your prostate medications, however, they are helping you urinate hesitant to stop them, follow up with your urologist please watch for any worsening dizziness as Toprol is a blood pressure medication and will cause further drop in blood pressure FOLLOW UP - [facility] primary care this week, please call office tomorrow to set up appointment - Dr. Millan, follow up in 2 weeks Call your Primary Care doctor if any of the following symptoms or problems start or get worse: * Shortness of breath or difficulty breathing * Wake up at night short of breath * Chest pain * Cough * Swelling of your hands, feet, or legs * More fatigued or tired with your normal activity * Palpitations - sudden fast heart beats WEIGHT * Weigh yourself every morning after using the bathroom. * Use the same scale. * Wear the same amount of clothing. * Write your weight down on a chart. * Call your Primary Care doctor if you gain more than 2-3 pounds in 1-2 days. MEDICATIONS * Use this discharge instruction sheet for medication instructions. * Take your medications at the time your doctor ordered. * Do not skip a dose of your medicines. * If you miss a dose of medicine, take it as soon as possible, but DO NOT DOUBLE A DOSE. * Read your medicine information when you get home. * Know all of the side effects of your medicine. If in doubt, ask your pharmacist * Call your Primary Care doctor's office if you have any side effects. * Be sure all of your doctors know what medicine and herbs you take (including cold, flu, and herbal medicine). Take the following with you to your follow-up doctor appointments: * Weight Chart * Medication List * List of questions Do not drink excessive alcohol, beer or wine. Current Hospital Diet Patient's current hospital diet: AHA Diet (Heart Healthy), Low Sodium Diet (2gm Na) Discharge Diet Recommended Diet: AHA Diet (Heart Healthy), Low Sodium Diet (2gm Na) Fluid Restriction: 1500 ml (6 cups) Procedures Procedures Performed: Left heart catheterization: no significant coronary disease Pending Studies Studies pending at discharge: no Medical Emergencies . Who to Call and When: Call 911 or go to the Emergency Room if: * If at any time you feel your situation is an emergency * You have tightness or pain in your chest that does not go away with rest or Nitroglycerin * You are very short of breath even with rest . Non-Emergent Contact Non-Emergency issues call your: Primary Care Provider, Emergency Room Doctor Call Non-Emergent contact if: you have any medication questions if you are having swelling, difficulty breathing, gaining weight . . "Provider Documentation" section prepared by Matthias Vela. . Circle Edger Recommendations Circle Edger Recommendations: ACTIVITY RECOMMENDATIONS: Excess manipulation of the wrist should be avoided for the next 24-48 hours. * No lifting over 2 pounds (approximately a 1/2 gallon of milk) with the utilized arm for 24 hours. * No strenuous activity such as bowling or tennis for 3 days. * Keep the site of the procedure covered with a bandage for 24 hours. *You may shower the day after the procedure. Do not take a tub bath or submerge the puncture site in water for the next 3 days. *Do not operate any motorized equipment for 3 days. SPECIAL CARE INSTRUCTIONS: The site may be slightly bruised and sore following your procedure. Should any of the following occur, contact the Dr. who performed your procedure. 1. Redness/inflammation, swelling, chills, or fever, or colored drainage at procedure site within 3-7 days after your procedure. 2. Coldness, discoloration, ongoing numbness, severe pain, or swelling. Expect mild tingling of hand and tenderness at the puncture site for up to three days. If this persists beyond three days, or other symptoms develop, notify the Dr. who performed your procedure. BLEEDING: If the procedure site on your wrist begins to bleed, do not panic 1. Place 1 or 2 fingers firmly just slightly above the insertion site to stop the bleeding. You may be able to feel your pulse as you hold pressure. 2. Lift your finger after 5 minutes to see if the bleeding has stopped. 3. Once the bleeding has stopped, gently wipe the wrist area clean with a bandage. * If the bleeding from your wrist does not stop after 10 minutes, or if there is a large amount of bleeding or spurting, call 911 (do not drive yourself to the hospital). SKIN IRRITATION: * You may experience some redness and/or swelling in the area where radiation was administered. If any skin irritation occurs, please contact your family physician. FOLLOW UP VISIT: Keep any scheduled doctor appointments. VTE Core Measure Inpt VTE Proph given/why not?: Enoxaparin (Lovenox)[facility] Drug Monitoring Program Search Results: no issues identified
--- NOTE | 2017-09-23 16:42 | Discharge Summary ---
Discharge Summary Date of Service Sep 22, 2017. Discharge Summary Admission Date: Sep 18, 2017 at 13:03 Discharge Date: Sep 22, 2017 Discharge Disposition: Home Principal Diagnosis: Acute systolic heart failure Problems/Secondary Diagnoses: STEMI Acute hypoxic respiratory failure CKD stage III BPH Immunizations: Have You Had Influenza Vaccine: Unknown History of Tetanus Vaccine?: Yes History of Pneumococcal: Unknown History of Hepatitis B Vaccine: No Procedures: Left heart catheterization, mild disease Consultations: Cardiology Medication Reconciliation New Medications: Furosemide (Lasix) 40 Mg Tab 40 MG PO DAILY PRN for weight gain, #30 TAB Lisinopril (Lisinopril) 2.5 Mg Tab 2.5 MG PO QAM, #30 TAB 1 Refill Metoprolol Succinate (Metoprolol Succinate ER) 25 Mg Tabcr 25 MG PO QAM, #30 TABS 1 Refill Continued Medications: Aspirin Enteric Coated (Ecotrin Or Generic *) 81 Mg Ectab 81 MG PO BID, 0 Refills Ferrous Sulfate (Kp Ferrous Sulfate) 325 Mg Tab 325 MG PO DAILY, 3 Refills Finasteride (Finasteride) 5 Mg Tab 5 MG PO QAM for 30 Days, #30 TAB 1 Refill Multiple Vitamin (Multivitamin) 1 Tab Tab 1 TAB PO DAILY, TAB Simvastatin (Zocor) 80 Mg Tab 80 MG PO QPM, TAB Terazosin Hcl (Hytrin) 10 Mg Cap 10 MG PO DAILY, CAP Discharge Exam Patient feeling well, no difficulty breathing on room air. Ambulating independently, had some dizziness but it is the same dizziness that he always has that is associated with his Hytrin. Eating well. Discussed plans for discharge, went over instructions with him in detail, all questions answered. Review of Systems: Constitutional: No fever, No chills, No sweats, No weight loss, No weakness , No fatigue, No problem reported Eyes: No worsening of vision, No eye pain, No redness, No discharge, No diplopia, No problem reported ENT: No hearing loss, No unusual epistaxis, No nasal symptoms, No sore throat, No tinnitus, No dental problems, No trouble swallowing, No problem reported Respiratory: No cough, No sputum, No wheezing, No shortness of breath, No dyspnea on exertion, No dyspnea at rest, No hemoptysis, No problem reported Cardiovascular: No chest pain, No orthopnea, No PND, No edema, No claudication, No palpitations, No problem reported Abdomen: No pain, No nausea, No vomiting, No diarrhea, No constipation, No GI bleeding, No problem reported Musculoskeletal: No joint pain, No muscle pain, No swelling, No calf pain, No problem reported Genitourinary - Male: No hematuria, No dysuria, No urinary frequency, No urinary urgency Neurologic: + problem reported (dizziness, transient, this is a chronic issue), No memory loss, No paralysis, No weakness, No numbness/tingling, No vertigo, No balance problems Psychiatric: No depression symptoms, No anhedonism, No anxiety, No insomnia , No substance abuse, No problem reported Endocrine: No fatigue, No excessive thirst, No excessive urination, No problem reported Hematologic / Lymphatic: No abnormal bleeding/bruising, No clotting problems , No swollen lymph nodes, No night sweats, No problem reported Integumentary: No rash, No itch, No new/changing skin lesions, No color change, No bleeding, No problem reported Physical Exam: General Appearance: WD/WN, no apparent distress Eyes: normal inspection, EOMI, sclerae normal ENT: normal ENT inspection, hearing grossly normal, pharynx normal Neck: supple, no adenopathy, no JVD, trachea midline Respiratory/Chest: chest non-tender, lungs clear, normal breath sounds, no respiratory distress, no accessory muscle use Cardiovascular: regular rate, rhythm, no edema, no gallop, no JVD, no murmur , normal peripheral pulses Abdomen / GI: normal bowel sounds, non tender, soft, no organomegaly Extremities: normal inspection, no calf tenderness, normal capillary refill , no pedal edema, normal range of motion, pelvis stable Neurologic/Psychiatric: heat treater helper II-XII nml as tested, no motor/sensory deficits , alert, normal mood/affect, normal reflexes, oriented x 3 Skin: normal color, warm/dry, no rash Lymphatic: no adenopathy Hospital Course 87 y/o M Hx BPH, HPL, LBBB, pacer due to 3rd degree heart block 2016. Pt presents with SOB, orthopnea and pleuritic CP when lying flat. He denies a productive cough, fever, N/V or episodes of diaphoresis. The pt does not have a history of CHF or CAD. - Acute systolic heart failure: EF is 25%, this is a new diagnosis on this admission, prior echo showed preserved EF diuresed nearly 2 liters with Lasix on 09/18 continue fluid restriction, daily weights (down 8kg since admission) started on Lisinopril 2.5mg and metoprolol 25mg today [facility] 09/30, no significant coronary disease, thus this would be considered non- ischemic cardiomyopathy instructions given for discharge, follow fluid restriction, weight daily in the morning provided with Lasix 40mg to take daily as needed for weight gain of 2-3 pounds from dry weight - NSTEMI: mild rise in troponin, denies chest pain, EKG cannot be interpreted due to LBBB Lovenox q12 for full anticoagulation, continued for 72 hours troponin up slightly and then trended down no disease requiring stent, [facility] on 09/20 - CKD stage III: stable for several days - Acute hypoxic respiratory failure: due to pulmonary edema resolved with diuresis - BPH: continue home meds, have been causing dizziness discussed with patient, he cannot urinate well without the Hytrin and finasteride he has tried to go off of them full code d/c to home Total Time Spent: Greater than 30 minutes This includes examination of the patient, discharge planning, medication reconciliation, and communication with other providers. Discharge Instructions Please refer to the electronic Patient Visit Report (Discharge Instructions) for additional information. [facility]. Millan in two weeks Additional Copies To Eagle Millan M.D.; Luis Patiño D.O.
== END 2017-09-22 13:36 | disposition home or self-care (01) | DRG 280 ==
LOC: C.EDB 10:38 → C.MED 13:03 → ENRESERV 13:23 → C.EDC 14:00 → C.2T 09-20 10:22
PROVIDERS: ADMIT Internal Medicine; ATTEND Internal Medicine
PROC: 4A033BC Measurement of Arterial Pressure, Coronary, Percutaneous Approach (ICD-10-PCS; 2017-09-20)
PROC: 4A023N7 Measurement of Cardiac Sampling and Pressure, Left Heart, Percutaneous Approach (ICD-10-PCS; principal; 2017-09-20 07:32)
PROC: B211YZZ Fluoroscopy of Multiple Coronary Arteries using Other Contrast (ICD-10-PCS; principal; 2017-09-20 07:32)
DX: I21.4 Non-ST elevation (NSTEMI) myocardial infarction (principal); I50.21 Acute systolic (congestive) heart failure; I25.10 Atherosclerotic heart disease of native coronary artery without angina pectoris; J96.01 Acute respiratory failure with hypoxia; I13.0 Hypertensive heart and chronic kidney disease with heart failure and stage 1 through stage 4 chronic kidney disease, or unspecified chronic kidney disease; I42.9 Cardiomyopathy, unspecified; Z96.659 Presence of unspecified artificial knee joint; E78.5 Hyperlipidemia, unspecified; N40.0 Benign prostatic hyperplasia without lower urinary tract symptoms; Z95.0 Presence of cardiac pacemaker; I44.7 Left bundle-branch block, unspecified; N18.3 Chronic kidney disease, stage 3 (moderate)

== ENCOUNTER 2017-12-02 09:19 | Inpatient (IN) | payer OTHER ==
[~2017-12-02] VITALS: Ht 177.8 cm; Wt 68.9 kg
[~2017-12-02 09:19] MED LIST changes: -FLM4 PO; +FRS/40 PO; +LSN25 PO; +TPRSR25 PO
[2017-12-02] MEDS ORDERED: ASPIRIN 81 MG CHEW PO STA (09:51)
[2017-12-02 10:06] LABS: BASO % 0.5 %; BASO ABS # 0.03 K/uL (0-0.2); EOS % 2.4 %; EOS ABS # 0.15 K/uL (0-0.5); HEMATOCRIT 39.7 % (42-52); HEMOGLOBIN 13.2 g/dL (14.0-18.0); IG# 0.01 K/uL (0.00-0.02); LYMPH % 8.9 %; LYMPH ABS # 0.55 K/uL (1.2-3.4); MEAN CELL VOLUME 93.6 fL (80-100); MEAN CORPUSCULAR HEMOGLOBIN 31.1 pg (25-34); MEAN CORPUSCULAR HGB CONC 33.2 g/dl (32-36); MEAN PLATELET VOLUME 11.3 fL (7.4-10.4); MONO % 9.2 %; MONO ABS # 0.57 K/uL (0.11-0.59); NEUT % 78.8 %; NEUT ABS # 4.87 K/uL (1.4-6.5); PLATELET COUNT 159 K/uL (130-400); RED CELL DISTRIBUTION WIDTH CV 13.7 % (11.5-14.5); RED CELL DISTRIBUTION WIDTH SD 46.9 fL (36.4-46.3); WHITE BLOOD COUNT 6.18 K/uL (4.8-10.8)
[2017-12-02 10:12] LABS: PTT PATIENT 25.7 SECONDS (21.0-31.0)
--- NOTE | 2017-12-02 10:12 | DIAGNOSTIC IMAGING REPORT ---
CHEST ONE VIEW PORTABLE CLINICAL HISTORY: Congestive heart failure. Trouble breathing. COMPARISON STUDY: Chest radiograph September 18, 2017. FINDINGS: Calcified left hilar nodes are noted. There is a dual lead left subclavian pacemaker. Cardiomegaly is noted. There is no pneumothorax. Small to moderate left and small right pleural effusions are noted. Left pleural effusion has slightly decreased in size since exam of September 18, 2017. Pulmonary vascular congestion is noted with suspected mild pulmonary edema. There are bibasilar opacities. IMPRESSION: 1. Small to moderate left and small right pleural effusions with associated bibasilar opacities. 2. Mild pulmonary edema. Electronically signed by: Gabriel Montana M.D. 12/02/2017 10:10 AM Dictated Date/Time: 12/02/2017 10:08 AM
[2017-12-02 10:13] LABS: ALBUMIN 3.7 gm/dl (3.4-5.0); ALT/SGPT 50 U/L (12-78); AST/SGOT 36 U/L (15-37); BLOOD UREA NITROGEN 25 mg/dl (7-18); CALCIUM 9.4 mg/dl (8.5-10.1); CARBON DIOXIDE 26 mmol/L (21-32); GLUCOSE 129 mg/dl (70-99); POTASSIUM 4.1 mmol/L (3.5-5.1); SODIUM 144 mmol/L (136-145)
[2017-12-02 10:18] LABS: ALKALINE PHOSPHATASE 89 U/L (45-117)
[2017-12-02] MEDS ORDERED: ASPI81TA28 PO (10:20)
[2017-12-02] MEDS ORDERED: URX/10 PO (10:20)
[2017-12-02] MEDS ORDERED: FUROSEMIDE 40 MG/4 ML VIAL IV STA (10:32)
--- NOTE | 2017-12-02 10:37 | EMERGENCY ROOM VISIT NOTE ---
History Report prepared by Aaron: Adri Vásquez Under the Supervision of: Dr. Cele Hall M.D. First contact with patient: 09:42 Chief Complaint: SHORTNESS OF BREATH Stated Complaint: TROUBLE BREATHING History of Present Illness The patient is a 87 year old male who presents to the Emergency Room with complaints of constant shortness of breath since last night. He feels like he is only able to take short, shallow breaths. He was unable to sleep lying down and had to sleep sitting up. The patient is also experiencing some mild, right- sided chest pain. It does not radiate into his arms or jaw. He rates his current pain as a 3/10 in severity. Pt denies fevers. He denies any personal history of GA or stroke. He took 81 mg of aspirin this morning. The patient was in the hospital 1 month ago with "fluid on my lungs." He was discharged with Lasix PRN at that time but states he has not taken them at home. 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 Source of History: patient Onset: last night Position: chest Symptom Intensity: 3/10 Timing: constant Modifying Factors (Worsening): other (lying down) Modifying Factors (Relieving): other (sitting up) Associated Symptoms: + chest pain, + SOB, No fevers Review of Systems See HPI for pertinent positives & negatives. A total of 10 systems reviewed and were otherwise negative. Past Medical & Surgical Medical Problems: (1) Bradycardia with 31-40 beats per minute (2) CHF (congestive heart failure) (3) HYPERTENSION NOS (4) HYPERTROPHY OF PROSTATE (BENIGN) (5) KNEE JOINT REPLACEMENT STATUS (6) Syncope Family History Non-pertinent due to advanced age. Social History Smoking Status: Never Smoker Drug Use: none Marital Status: Housing Status: lives with significant other Occupation Status: retired Current/Historical Medications Scheduled Alfuzosin HCl (Alfuzosin HCl ER), 10 MG PO DAILY Aspirin (Aspirin Ec), 81 MG PO BID Ferrous Sulfate (Kp Ferrous Sulfate), 325 MG PO DAILY Finasteride (Finasteride), 5 MG PO QAM Lisinopril (Lisinopril), 2.5 MG PO QAM Metoprolol Succinate (Metoprolol Succinate ER), 25 MG PO QAM Multiple Vitamin (Multivitamin), 1 TAB PO DAILY Simvastatin (Zocor), 80 MG PO QPM Terazosin Hcl (Hytrin), 10 MG PO DAILY Scheduled PRN Furosemide (Lasix), 40 MG PO DAILY PRN for weight gain Allergies Coded Allergies: No Known Allergies (Verified , 12/02/17) Physical Exam Vital Signs Date Time Temp Pulse Resp B/P (MAP) Pulse Ox O2 Delivery O2 Flow Rate FiO2 12/02/17 11:36 76 18 94 12/02/17 11:06 71 18 96 12/02/17 11:01 142/82 12/02/17 10:49 75 22 95 Room Air 12/02/17 10:19 76 27 94 Room Air 12/02/17 10:01 141/88 Room Air 12/02/17 09:57 95 Room Air 12/02/17 09:54 96 Room Air 12/02/17 09:49 73 13 96 Room Air 12/02/17 09:39 83 12/02/17 09:38 156/93 12/02/17 09:30 36.4 82 24 150/90 97 Room Air Physical Exam Vital signs reviewed. General: Chronically ill-appearing elderly male, in no significant distress. HEENT: No scleral icterus, PERRLA, neck supple. Atraumatic. Cardiovascular: Regular rate and rhythm, no extra sounds. Pulmonary: Crackles at the bases bilaterally, normal work of breathing. Abdomen: Soft, nontender, nondistended, positive bowel sounds. Musculoskeletal: Atraumatic, 1+ pitting edema to the bilateral lower extremities. Neurologic: Patient awake alert and oriented x 3, full strength in all 4 extremities. Cranial nerves 2 through 12 grossly intact. Skin: Warm, dry, no rash Medical Decision & Procedures ER Provider Diagnostic Interpretation: Radiology results as stated below per my review and radiologist interpretation: CHEST ONE VIEW PORTABLE CLINICAL HISTORY: Congestive heart failure. Trouble breathing. COMPARISON STUDY: Chest radiograph September 18, 2017. FINDINGS: Calcified left hilar nodes are noted. There is a dual lead left subclavian pacemaker. Cardiomegaly is noted. There is no pneumothorax. Small to moderate left and small right pleural effusions are noted. Left pleural effusion has slightly decreased in size since exam of September 18, 2017. Pulmonary vascular congestion is noted with suspected mild pulmonary edema. There are bibasilar opacities. IMPRESSION: 1. Small to moderate left and small right pleural effusions with associated bibasilar opacities. 2. Mild pulmonary edema. Electronically signed by: Gabriel Montana M.D. 12/02/2017 10:10 AM Dictated Date/Time: 12/02/2017 10:08 AM Laboratory Results Test 12/02/17 09:40 12/02/17 09:50 12/02/17 11:30 Prothrombin Time 10.8 SECONDS (9.0-12.0) Prothromb Time International Ratio 1.0 (0.9-1.1) Activated Partial Thromboplast Time 25.7 SECONDS (21.0-31.0) Partial Thromboplastin Ratio 1.0 Direct Bilirubin 0.3 mg/dl (0-0.2) Pro-B-Type Natriuretic Peptide 95115 pg/ml (0-1800) Bedside Lactic Acid Venous 1.65 mmol/L (0.90-1.70) Urine Color YELLOW Urine Appearance CLEAR (CLEAR) Urine pH 5.0 (4.5-7.5) Urine Specific [place] 1.017 (1.000-1.030) Urine Protein NEG (NEG) Urine Glucose (UA) NEG (NEG) Urine Ketones NEG (NEG) Urine Occult Blood NEG (NEG) Urine Nitrite NEG (NEG) Urine Bilirubin NEG (NEG) Urine Urobilinogen NEG (NEG) Urine Leukocyte Esterase NEG (NEG) Laboratory results per my review. Medications Administered Medications (Trade) Dose Ordered Sig/Rhonda Route Start Time Stop Time Status Last Admin Dose Admin Aspirin (Aspirin Chew) 243 mg NOW STAT PO 12/02/17 09:51 12/02/17 09:53 DC 12/02/17 10:05 243 MG Furosemide (Lasix Inj) 40 mg NOW STAT IV 12/02/17 10:32 12/02/17 10:34 DC 12/02/17 10:58 40 MG ECG Per My Interpretation Indication: chest pain Rate (beats per minute): 86 Rhythm: other (AV pacemaker) Findings: no ectopy, other (QTC 548) ED Course 0945: Past medical records reviewed. The patient was evaluated in room B3B. A complete history and physical examination was performed. 0951: Aspirin 243 mg PO 1032: Lasix 40 mg IV 1122: I reassessed the patient at this time. He is feeling better and resting comfortably. I discussed the results and treatment plan with the patient. I answered all pertaining questions that he had. He expressed understanding and verbalized agreement. 1123: I spoke with Dr. Yolanda Rosenthal. We discussed the patient's case. The patient will be evaluated by the [facility] for further management. Medical Decision Differential diagnosis: Etiologies such as infections, reactive airway disease, pneumonia, pneumothorax , COPD, CHF, cardiac ischemia, pulmonary embolism, musculoskeletal, gastrointestinal, as well as others were entertained. This patient was evaluated and appeared to be in no significant distress. Physical examination reveals a mild increased work of breathing. Patient states he is not able to lie flat. Chest x-ray reveals some pulmonary vascular congestion. BNP is markedly elevated. Patient was given an additional 243 mg of aspirin orally as he did take 81 mg prior to arrival. Patient was given 40 mg of IV Lasix. Cardiac enzymes are negative. EKG reveals a paced rhythm. Patient will be evaluated by the hospitalist service for further management and diuresis. Patient is aware of the plan and agrees. Medication Reconcilliation Current Medication List: was personally reviewed by me Blood Pressure Screening Patient's blood pressure: Elevated blood pressure Blood pressure disposition: Elevated BP felt to be situational Consults Time Called: 1119 Consulting Physician: Dr. Yolanda Rosenthal Returned Call: [address] Yolanda Rosenthal. We discussed the patient's case. The patient will be evaluated by the [facility] for further management. Impression Primary Impression: CHF (congestive heart failure) Scribe Attestation The scribe's documentation has been prepared under my direction and personally reviewed by me in its entirety. I confirm that the note above accurately reflects all work, treatment, procedures, and medical decision making performed by me. Departure Information Dispostion Being Evaluated By Hospitalist Referrals Luis Patiño D.O. (PCP) Patient Instructions My [facility]
[2017-12-02] MEDS ORDERED: ALUMINUM/MAGNESIUM/SIMETH (MAALOX MAX) 30 ML UDC PO PRN (12:00)
[2017-12-02] MEDS ORDERED: ZOLPIDEM TARTRATE 5 MG TAB PO PRN ×2 (12:00)
[2017-12-02] MEDS ORDERED: MAGNESIUM HYDROXIDE SUSP 30 ML UDC PO PRN (12:00)
[2017-12-02] MEDS ORDERED: NITROGLYCERIN 0.4 MG SL PER TAB CHARGE SL PRN (12:00)
[2017-12-02] MEDS ORDERED: ACETAMINOPHEN 325 MG TAB PO PRN (12:00)
[2017-12-02] MEDS ORDERED: ONDANSETRON INJ 2 MG/ML 2 ML VIAL IV PRN (12:00)
[2017-12-02] MEDS ORDERED: POLYETHYLENE (MIRALAX) 17 GM PACK PO PRN (12:00)
[2017-12-02 12:05] VITALS: O2SAT 95; Ht 177.8 cm; Wt 68.9 kg
--- NOTE | 2017-12-02 13:34 | History and Physical ---
History & Physical Date & Time of Service: Dec 02, 2017 at 13:10 Chief Complaint: Chf (Congestive Heart Failure) Primary Care Physician: Luis Patiño D.O. 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 Patient was giving Lasix 40 mg oral. As per patient he was told to take it daily and then take an extra tablet if gain weight. Patient stated that in one night he remembers gaining 10 pounds and he took an extra Lasix. After that the patient stated that he lost that weight in 1 day. Patient reported he ran out of his Lasix. Obviously he is poorly compliant and poor historian. Patient stated that within the last few days he has been having progressive shortness of breath. He did not take his weight. Last night he could not sleep flat in bed due to shortness of breath. He also developed 3/10 right- sided chest tightness that was worse with deep inspiration. Patient presented to the ED. his weight in the ED was 165 pounds, patient stated that his last weight was 150 pounds. Also reported bilateral lower extremity edema , his chest x-ray was suggestive for CHF. Patient will be admitted for further evaluation and management. Past Medical/Surgical History Medical Problems: (1) Bradycardia with 31-40 beats per minute (2) CHF (congestive heart failure) (3) HYPERTENSION NOS (4) HYPERTROPHY OF PROSTATE (BENIGN) (5) KNEE JOINT REPLACEMENT STATUS (6) Second degree heart block (7) Syncope Social History Smoking Status: Never Smoker Drug Use: none Marital Status: Occupational Status: retired Immunizations History of Influenza Vaccine: Unknown History of Tetanus Vaccine?: Yes History of Pneumococcal: Unknown History of Hepatitis B Vaccine: No Allergies Coded Allergies: No Known Allergies (Verified , 12/02/17) Home Medications Scheduled Alfuzosin HCl (Alfuzosin HCl ER), 10 MG PO DAILY Aspirin (Aspirin Ec), 81 MG PO BID Ferrous Sulfate (Kp Ferrous Sulfate), 325 MG PO DAILY Finasteride (Finasteride), 5 MG PO QAM Lisinopril (Lisinopril), 2.5 MG PO QAM Metoprolol Succinate (Metoprolol Succinate ER), 25 MG PO QAM Multiple Vitamin (Multivitamin), 1 TAB PO DAILY Simvastatin (Zocor), 80 MG PO QPM Terazosin Hcl (Hytrin), 10 MG PO DAILY Scheduled PRN Furosemide (Lasix), 40 MG PO DAILY PRN for weight gain Review of Systems Review of system Constitutional: No fever / no chills / no sweats / no weakness / no fatigue Eyes: no blurring of vision / no eye pain / no discharge / no redness ENT: no hearing loss / no epistaxis /no swallowing problems Respiratory: Reported some dry cough, shortness of breath/ no hemoptysis Cardiovascular: Right-sided pleuritic chest pain /bilateral lower extremity edema / no palpitation positive orthopnea/ Abdomen: no pain / no nausea / no vomiting / no constipation Musculoskeletal: no joint pain / no muscle pain / no joint swelling Genitourinary: no dysuria / no incontinence / no urinary retention Neurologic: no focal weakness / no numbness/tingling / no ataxia Psychiatric: no depression symptoms / no anxiety / no insomnia Endocrine: no excessive thirst / no excessive urination Hematologic: no abnormal bleeding / no bruising / no LN swelling Skin: No rash / no pallor Physical Exam Vital Signs Date Time Temp Pulse Resp B/P (MAP) Pulse Ox O2 Delivery O2 Flow Rate FiO2 12/02/17 12:29 12/02/17 12:11 78 12/02/17 12:06 75 18 94 12/02/17 12:05 95 Room Air 12/02/17 12:02 148/89 12/02/17 11:36 76 18 94 12/02/17 11:06 71 18 96 12/02/17 11:01 142/82 12/02/17 10:49 75 22 95 Room Air 12/02/17 10:19 76 27 94 Room Air 12/02/17 10:01 141/88 Room Air 12/02/17 09:57 95 Room Air 12/02/17 09:54 96 Room Air 12/02/17 09:49 73 13 96 Room Air 12/02/17 09:39 83 12/02/17 09:38 156/93 12/02/17 09:30 36.4 82 24 150/90 97 Room Air Physical examination General patient appears to be in mild acute distress HEENT: Atraumatic , normocephalic /no jaundice /no pallor /anicteric /no dry mucous membrane /normal external ear inspection Neck: Supple /no swelling /central trach Heart: S1/S2 normal/regular rate and rhythm/no gallop /no rub /no murmur / Lungs: Bilateral decreased air entry, bilateral basal rales/normal chest with expansion/no rhonchi Abdomen: Soft/nontender/no guarding/no rebound/no organomegaly/no pulsatile mass Musculoskeletal: Bilateral lower extremity +2 pitting edema/no tenderness/ normal range of motion Neuro exam: Awake alert oriented 3/cranial nerves II through XII appear to be intact/sensation intact/moves all extremities/no abnormal movements Psychiatric evaluation: No depressed mood/normal affect Skin: No rash on exposed skin area/no erythema Extremity: Normal pulse/no pitting edema/no clubbing or cyanosis Endocrine/lymphatic: No obvious lymphadenopathy /no lymphedema Diagnostics Laboratory Results Results Past 24 Hours Test 12/02/17 09:40 12/02/17 09:50 12/02/17 11:30 Range/Units White Blood Count 6.18 4.8-10.8 K/uL Red Blood Count 4.24 4.7-6.1 M/uL Hemoglobin 13.2 14.0-18.0 g/dL Hematocrit 39.7 42-52 % Mean Corpuscular Volume 93.6 80-100 fL Mean Corpuscular Hemoglobin 31.1 25-34 pg Mean Corpuscular Hemoglobin Concent 33.2 32-36 g/dl Platelet Count 159 130-400 K/uL Mean Platelet Volume 11.3 7.4-10.4 fL Neutrophils (%) (Auto) 78.8 % Lymphocytes (%) (Auto) 8.9 % Monocytes (%) (Auto) 9.2 % Eosinophils (%) (Auto) 2.4 % Basophils (%) (Auto) 0.5 % Neutrophils # (Auto) 4.87 1.4-6.5 K/uL Lymphocytes # (Auto) 0.55 1.2-3.4 K/uL Monocytes # (Auto) 0.57 0.11-0.59 K/uL Eosinophils # (Auto) 0.15 0-0.5 K/uL Basophils # (Auto) 0.03 0-0.2 K/uL RDW Standard Deviation 46.9 36.4-46.3 fL RDW Coefficient of Variation 13.7 11.5-14.5 % Immature Granulocyte % (Auto) 0.2 % Immature Granulocyte # (Auto) 0.01 0.00-0.02 K/uL Prothrombin Time 10.8 9.0-12.0 SECONDS Prothromb Time International Ratio 1.0 0.9-1.1 Activated Partial Thromboplast Time 25.7 21.0-31.0 SECONDS Partial Thromboplastin Ratio 1.0 Sodium Level 144 136-145 mmol/L Potassium Level 4.1 3.5-5.1 mmol/L Chloride Level 111 98-107 mmol/L Carbon Dioxide Level 26 21-32 mmol/L Anion Gap 7.0 3-11 mmol/L Blood Urea Nitrogen 25 7-18 mg/dl Creatinine 1.20 0.60-1.40 mg/dl Estimated GFR () 63.1 Estimated GFR (Non- 54.4 BUN/Creatinine Ratio 20.8 10-20 Random Glucose 129 70-99 mg/dl Calcium Level 9.4 8.5-10.1 mg/dl Magnesium Level 2.0 1.8-2.4 mg/dl Total Bilirubin 0.8 0.2-1 mg/dl Direct Bilirubin 0.3 0-0.2 mg/dl Aspartate Amino Transf (AST/SGOT) 36 15-37 U/L Alanine Aminotransferase (ALT/SGPT) 50 12-78 U/L Alkaline Phosphatase 89 45-117 U/L Troponin I 0.022 0-0.045 ng/ml Pro-B-Type Natriuretic Peptide 07166 0-1800 pg/ml Total Protein 7.0 6.4-8.2 gm/dl Albumin 3.7 3.4-5.0 gm/dl Bedside Lactic Acid Venous 1.65 0.90-1.70 mmol/L Urine Color YELLOW Urine Appearance CLEAR CLEAR Urine pH 5.0 4.5-7.5 Urine Specific [place] 1.017 1.000-1.030 Urine Protein NEG NEG Urine Glucose (UA) NEG NEG Urine Ketones NEG NEG Urine Occult Blood NEG NEG Urine Nitrite NEG NEG Urine Bilirubin NEG NEG Urine Urobilinogen NEG NEG Urine Leukocyte Esterase NEG NEG Diagnostic Radiology Chest x-ray was suggestive for CHF and bilateral bibasal atelectasis EKG was atrial sensed ventricular paced Impression Assessment and Plan 87 years old man with past medical history of nonischemic cardiomyopathy, 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 Dyslipidemia Hypertension Chronic kidney disease stage II/III BPH Borderline low B12 in April 2016, patient can follow-up on that as OP Plan: admit to telemetry NTG SL/topical prn cp consult utilization review specialist Chest pain appears to be purely pleuritic but will obtain serial cardiac enzymes anyway Check hemoglobin A1c/lipids to stratify patient risk factors I/Os 2Decho was deferred to utilization review specialist due to the presence of a recent EKG that showed ejection fraction of 25% gentle diuresis, will start with Lasix 20 mg IV twice daily, as his creatinine is on the fence, his oxygen saturation is normal in room air so there is no need to be overly aggressive. Continue home medications including beta-arlyn and lisinopril control blood pressure, afterload and preload DVT prophylaxis Advanced Directives Existing Living Will: No Existing Power of Die Maintenance: No Resuscitation Status VTE Prophylaxis Will order VTE Prophylaxis: Yes
[2017-12-02] MEDS ORDERED: PNEUMOCOCCAL POLYSACCHARIDES 25 MCG/0.5 ML VIAL/SYR IM. ONE (14:00)
[2017-12-02] MEDS ORDERED: PNEUMOCOCCAL ADMINISTRATION CHARGE ONE (14:00)
[2017-12-02] MEDS: HEPARIN SOD 5000 UNIT/0.5 ML CARP SQ SCH ×2 (14:16→21:13)
[2017-12-02 15:34] VITALS: BP 120/74; PULSE 75; TEMP 36.4; O2SAT 93
--- NOTE | 2017-12-02 17:05 | Cardiology Consultation ---
Cardiology Consultation Date of Consultation: Dec 02, 2017. Requesting Physician: Galo Reason for Consultation: CHF Pt evaluation today including: conversation w/ patient, physical exam, chart review, lab review, review of studies, review of inpatient medication list History of Present Illness The patient is an 87-year-old gentleman with a history of a nonischemic cardiomyopathy and decompensated congestive heart failure who was admitted to [facility] September of 2017. He underwent extensive evaluation at that time including cardiac catheterization. He was sent home on diuretic therapy after undergoing diuresis. Patient states that he felt well until last evening. He states that he was very restless all evening and had difficulty sleeping due to breathing trouble. He sat up in a chair in order to improve his breathing. His breathing difficulty persisted and he presented to [facility] today for evaluation. He does state that perhaps over the past few days he has had slightly more dyspnea with activity such as walking. He claims to walk about a mi per day up and down some hills. He did not report orthopnea until last evening. Patient states that at the time of discharge he was prescribed 2 pills. He ran out of both and has not taking them for about 2 weeks. He had been weighing himself daily in order to determine if he needed a dose of Lasix, but stop waiting himself when he ran out of the Lasix. He does report some mild lower extremity edema. He has not report any increasing abdominal girth. He did have some chest discomfort last evening with deep inspiration. This was a right sided in fairly focal in location. Patient is an active individual who enjoys walking as noted above. He does have chronic dizziness and lightheadedness which has persisted despite pacemaker implantation and adjustment in his medications. He has a history of syncope but has not had syncope since pacemaker implantation. He has not been aware of any palpitations. He claims to follow low-sodium diet and has not changed his diet recently. Past Medical/Surgical History Nonischemic cardiomyopathy History of decompensated left ventricular systolic failure Syncope Intermittent heart block Benign prostatic hypertrophy Diabetes mellitus Past surgical history: Implantation of dual-chamber [employer] pacemaker 04/2016 Knee replacement Family History Noncontributory given his advanced age Social History Smoking Status: Never Smoker History of Alcohol Use: No Patient currently lives independently with his . He has been a local resident for most of his life. He previously worked as a machinist 2nd shift. Review of Systems Respiratory: + dyspnea on exertion Cardiac: + edema No recent constitutional symptoms such as fevers or chills. He has had a good appetite. He denies any significant changes in his bowel or bladder habits. All Other Systems: Reviewed and Negative Allergies Coded Allergies: No Known Allergies (Verified , 12/02/17) Medications Current Inpatient Medications Medications (Trade) Dose Ordered Sig/Rhonda Route Start Time Stop Time Status Last Admin Dose Admin Alfuzosin HCl (Uroxatral Tab) 10 mg DAILY PO 12/03/17 09:00 01/02/18 08:59 Aspirin (Ecotrin Tab) 81 mg BID PO 12/02/17 21:00 01/01/18 20:59 Finasteride (Proscar Tab) 5 mg QAM PO 12/03/17 09:00 01/02/18 08:59 Lisinopril (Zestril Tab) 2.5 mg QAM PO 12/03/17 09:00 01/02/18 08:59 Metoprolol Succinate (Toprol Xl Tab) 25 mg QAM PO 12/03/17 09:00 01/02/18 08:59 Simvastatin (Zocor Tab) 80 mg QPM PO 12/02/17 21:00 01/01/18 20:59 Terazosin HCl (Hytrin Cap) 10 mg DAILY PO 12/03/17 09:00 01/02/18 08:59 Ferrous Sulfate (Feosol Tab) 325 mg DAILY PO 12/03/17 09:00 01/02/18 08:59 Heparin Sodium (Porcine) (Heparin Sq 5000 Unit/0.5ml) 5,000 unit Q8 SQ 12/02/17 14:00 01/01/18 13:59 12/02/17 14:16 5,000 UNIT Acetaminophen (Tylenol Tab) 650 mg Q4H PRN PO 12/02/17 12:00 01/01/18 11:59 Al Hydrox/Mg Hydrox/Simethicone (Maalox Max Susp) 15 ml Q4H PRN PO 12/02/17 12:00 01/01/18 11:59 Magnesium Hydroxide (Milk Of Magnesia Susp) 30 ml Q12H PRN PO 12/02/17 12:00 01/01/18 11:59 Zolpidem Tartrate (Ambien Tab) 5 mg HSZ PRN PO 12/02/17 12:00 01/01/18 11:59 Zolpidem Tartrate (Ambien Tab) 5 mg HSZ PRN PO 12/02/17 12:00 01/01/18 11:59 Ondansetron HCl (Zofran Inj) 4 mg Q6H PRN IV 12/02/17 12:00 01/01/18 11:59 Nitroglycerin (Nitrostat Tab) 0.4 mg UD PRN SL 12/02/17 12:00 01/01/18 11:59 Polyethylene (Miralax Powder Packet) 17 gm DAILY PRN PO 12/02/17 12:00 01/01/18 11:59 Furosemide 20 mg/ Syringe 2 ml @ 4 mls/min BID IV 12/02/17 21:00 01/01/18 20:59 Physical Exam Vital Signs Past 12 Hours Date Time Temp Pulse Resp B/P (MAP) Pulse Ox O2 Delivery O2 Flow Rate FiO2 12/02/17 15:34 36.4 75 18 120/74 (89) 93 Room Air 12/02/17 12:29 12/02/17 12:11 78 12/02/17 12:06 75 18 94 12/02/17 12:05 95 Room Air 12/02/17 12:02 148/89 12/02/17 11:36 76 18 94 12/02/17 11:06 71 18 96 12/02/17 11:01 142/82 12/02/17 10:49 75 22 95 Room Air 12/02/17 10:19 76 27 94 Room Air 12/02/17 10:01 141/88 Room Air 12/02/17 09:57 95 Room Air 12/02/17 09:54 96 Room Air 12/02/17 09:49 73 13 96 Room Air 12/02/17 09:39 83 12/02/17 09:38 156/93 12/02/17 09:30 36.4 82 24 150/90 97 Room Air The patient is alert and oriented. Mood and affect appeared normal. He answered all questions appropriately. HEENT: Pupils are equal and reactive to light and accommodation. Extraocular movements are intact. The sclerae are anicteric. Neuro: Cranial nerves intact Neck: Patient's neck is supple. He has palpable carotid pulses bilaterally without bruits on auscultation. There is no evidence of jugular venous distention. The thyroid is not enlarged. Lungs: Occasional rales mid way through the lungs bilaterally. He has good air movement without use of accessory muscles. No wheezes or rhonchi. Cardiac: Heart demonstrates a regular rate and rhythm. Normal S1 and S2. No murmurs on examination. Pulses: The patient has palpable radial pulses bilaterally that are equal in intensity Extremities: There was no evidence of hypoperfusion. There is no cyanosis or clubbing. Mild lower extremity edema to the mid calf. Skin: I did not appreciate any rashes on examination today. Data Laboratory Results: Last 24 Hours Test 12/02/17 09:40 12/02/17 09:50 12/02/17 11:30 12/02/17 13:32 White Blood Count 6.18 K/uL Red Blood Count 4.24 M/uL Hemoglobin 13.2 g/dL Hematocrit 39.7 % Mean Corpuscular Volume 93.6 fL Mean Corpuscular Hemoglobin 31.1 pg Mean Corpuscular Hemoglobin Concent 33.2 g/dl Platelet Count 159 K/uL Mean Platelet Volume 11.3 fL Neutrophils (%) (Auto) 78.8 % Lymphocytes (%) (Auto) 8.9 % Monocytes (%) (Auto) 9.2 % Eosinophils (%) (Auto) 2.4 % Basophils (%) (Auto) 0.5 % Neutrophils # (Auto) 4.87 K/uL Lymphocytes # (Auto) 0.55 K/uL Monocytes # (Auto) 0.57 K/uL Eosinophils # (Auto) 0.15 K/uL Basophils # (Auto) 0.03 K/uL RDW Standard Deviation 46.9 fL RDW Coefficient of Variation 13.7 % Immature Granulocyte % (Auto) 0.2 % Immature Granulocyte # (Auto) 0.01 K/uL Prothrombin Time 10.8 SECONDS Prothromb Time International Ratio 1.0 Activated Partial Thromboplast Time 25.7 SECONDS Partial Thromboplastin Ratio 1.0 Sodium Level 144 mmol/L Potassium Level 4.1 mmol/L Chloride Level 111 mmol/L Carbon Dioxide Level 26 mmol/L Anion Gap 7.0 mmol/L Blood Urea Nitrogen 25 mg/dl Creatinine 1.20 mg/dl Estimated GFR () 63.1 Estimated GFR (Non- 54.4 BUN/Creatinine Ratio 20.8 Random Glucose 129 mg/dl Calcium Level 9.4 mg/dl Magnesium Level 2.0 mg/dl Total Bilirubin 0.8 mg/dl Direct Bilirubin 0.3 mg/dl Aspartate Amino Transf (AST/SGOT) 36 U/L Alanine Aminotransferase (ALT/SGPT) 50 U/L Alkaline Phosphatase 89 U/L Troponin I 0.022 ng/ml Pro-B-Type Natriuretic Peptide 23648 pg/ml Total Protein 7.0 gm/dl Albumin 3.7 gm/dl Bedside Lactic Acid Venous 1.65 mmol/L Urine Color YELLOW Urine Appearance CLEAR Urine pH 5.0 Urine Specific [place] 1.017 Urine Protein NEG Urine Glucose (UA) NEG Urine Ketones NEG Urine Occult Blood NEG Urine Nitrite NEG Urine Bilirubin NEG Urine Urobilinogen NEG Urine Leukocyte Esterase NEG Imaging: Single-view chest x-ray demonstrated element of mild pulmonary congestion with bilateral pleural effusions EKG: Sinus rhythm with ventricular pacing Telemetry reviewed: Sinus rhythm without ventricular paced I performed a complete device interrogation which revealed normal sinus rhythm. No recent arrhythmias. Minimal ventricular pacing. Normal function of both the atrial and ventricular leads with good device longevity Cardiac catheterization performed 09/20/2017 revealed nonobstructive disease in multiple distributions. No intervention performed. Echocardiogram performed 09/18/2017 revealed severely reduced LV systolic function with ejection fraction 20/20 5%. Stage II diastolic dysfunction. Moderate mitral regurgitation. Pulmonary hypertension. Assessment & Plan 1. Acute decompensated left ventricular systolic failure: Patient has pulmonary congestion on exam. He also has objective findings of pulmonary edema including a chest x-ray and elevated proBNP. His weight is also noted to be up from discharge. This all corresponds to the absence of medical therapy over a couple of weeks. Seems that he ran out of his medications and did not call for a refill. He does not appear to have had any recent arrhythmia. He has minimal ventricular pacing. Blood pressure appears to be slightly elevated but not critically so. He did not report any dietary indiscretion. He is not appear to have had a recent infarct. His diuretic therapy has been reinstituted. I think he responded quite well to diuresis during his last hospitalization. This would likely resolve over the course of a day or 2 and he will be sent home on a similar regimen with instructions to continue his therapy. 2. Nonischemic cardiomyopathy: Patient was discharged on Damion inhibitor and beta-arlyn. These can be continued and the doses possibly increased based on his hemodynamics and renal function. His degree of LV dysfunction would qualify him for an ICD as primary prevention. However, he has only been on optimal medical therapy for a few weeks. 3. Valvular heart disease: Patient is known to have an element of mitral regurgitation. This is unlikely to have played a role in his decompensation. No significant murmur on examination. 4. Heart block: Patient is known to have intermittent heart block. He has minimal ventricular pacing at this point. No recent arrhythmias. Normally functioning dual-chamber permanent pacemaker 5. Syncope: No events since pacemaker implantation 6. Hypertension: Patient blood pressure was elevated at the time of admission. We will watch his vital signs as he has his medical therapy reintroduced. There may be an opportunity for an increase in his lisinopril prior to discharge.
[2017-12-02 19:44] VITALS: BP 130/79; PULSE 77; TEMP 36.7; O2SAT 91
[2017-12-02] MEDS: FUROSEMIDE INJ 20 MG in SYRINGE 0 ML IV SCH (21:10)
[2017-12-02] MEDS: SIMVASTATIN 80 MG TAB PO SCH (21:10)
[2017-12-02] MEDS: ASPIRIN 81 MG ECTAB PO SCH (21:10)
[2017-12-03] VITALS (9 sets, daily range): BP systolic 101–153; BP diastolic 60–81; PULSE 62–83; TEMP 36.2–37; O2SAT 90–95
[2017-12-03 05:59] LABS: BASO % 0.6 %; BASO ABS # 0.03 K/uL (0-0.2); EOS % 3.8 %; HEMATOCRIT 36.6 % (42-52); HEMOGLOBIN 12.5 g/dL (14.0-18.0); IG# 0.01 K/uL (0.00-0.02); LYMPH % 12.7 %; LYMPH ABS # 0.67 K/uL (1.2-3.4); MEAN CELL VOLUME 91.7 fL (80-100); MEAN CORPUSCULAR HEMOGLOBIN 31.3 pg (25-34); MEAN CORPUSCULAR HGB CONC 34.2 g/dl (32-36); MEAN PLATELET VOLUME 11.2 fL (7.4-10.4); MONO % 10.3 %; MONO ABS # 0.54 K/uL (0.11-0.59); NEUT % 72.4 %; NEUT ABS # 3.81 K/uL (1.4-6.5); PLATELET COUNT 130 K/uL (130-400); RED CELL DISTRIBUTION WIDTH CV 13.5 % (11.5-14.5); WHITE BLOOD COUNT 5.26 K/uL (4.8-10.8)
[2017-12-03] MEDS: HEPARIN SOD 5000 UNIT/0.5 ML CARP SQ SCH ×3 (06:11→21:24)
[2017-12-03 06:31] LABS: ALBUMIN 3.3 gm/dl (3.4-5.0); CALCIUM 9.1 mg/dl (8.5-10.1); CREATININE 1.48 mg/dl (0.60-1.40); POTASSIUM 3.4 mmol/L (3.5-5.1); TOTAL PROTEIN 6.2 gm/dl (6.4-8.2)
[2017-12-03 06:47] LABS: HEMOGLOBIN A1C 5.8 % (4.5-5.6)
[2017-12-03] MEDS: FERROUS SULFATE 325 MG TAB PO SCH (08:17)
[2017-12-03] MEDS: LISINOPRIL 2.5 MG TAB PO SCH (08:18)
[2017-12-03] MEDS: ALFUZosin TAB 10 MG TAB PO SCH (08:18)
[2017-12-03] MEDS: FUROSEMIDE INJ 20 MG in SYRINGE 0 ML IV SCH ×2 (08:19→21:20)
[2017-12-03] MEDS: FINASTERIDE 5 MG TAB PO SCH (08:19)
[2017-12-03] MEDS: ASPIRIN 81 MG ECTAB PO SCH ×2 (08:19→21:20)
[2017-12-03] MEDS ORDERED: METOPROLOL SUCC 25MG EXT REL TAB PO SCH (09:00)
[2017-12-03] MEDS: POTASSIUM CHLORIDE 20 MEQ TABCR PO SCH (09:23)
--- NOTE | 2017-12-03 10:10 | Cardiology Follow-Up ---
Subjective Date of Service: Dec 03, 2017. Pt evaluation today including: conversation w/ patient, physical exam, lab review, review of studies, review of inpatient medication list History of Present Illness 87 yo male with a non-ischemic cardiomyopathy, presents with CHF after stopping meds due to running out. His weight is up about 6 Kg from his last discharge weight, close to his last admission weight. He did not notice edema, he had PENA and orthopnea. He was discharge on Lasix 40 mg prn, Metoprolol succinate 25 mg daily and Lisinopril 2.5 mg daily. Today he feels much better, he can now lay flat without SOB. Social History Smoking Status: Never Smoker History of Alcohol Use: No Review of Systems Respiratory: + see HPI, + dyspnea on exertion Cardiac: + see HPI, No edema Medications Cardiovascular: Item Value Date Time Lisinopril 2.5 mg 12/03/17 0900 (Zestril Tab) QAM/PO 12/03/17 0818 Metoprolol 25 mg 12/03/17 0900 Succinate QAM/PO 12/03/17 0818 (Toprol Xl Tab) Potassium Chloride 20 meq 12/03/17 0900 (Klor-Con Tab) QAM/PO 12/03/17 0923 Aspirin 81 mg 12/02/17 2100 (Ecotrin Tab) BID/PO 12/03/17 0819 Simvastatin 80 mg 12/02/17 2100 (Zocor Tab) QPM/PO 12/02/17 2110 Furosemide 20 mg/ 2 ml @ 4 mls/min 12/02/17 2100 Syringe BID/IV 12/03/17 0819 Objective Vital Signs Past 12 Hours Date Time Temp Pulse Resp B/P (MAP) Pulse Ox O2 Delivery O2 Flow Rate FiO2 12/03/17 08:30 Room Air 12/03/17 07:26 36.6 70 18 147/80 (102) 95 12/03/17 04:00 36.7 68 16 153/81 (105) 92 Room Air 12/03/17 04:00 Room Air 12/03/17 00:00 37.0 68 17 130/80 (97) 94 Room Air 12/03/17 00:00 Room Air Last Recorded Weight-Kilograms: 70.100 Physical Exam Constitutional: Level of Distress: NAD Lungs: Auscultation: breath sounds normal Cardiovascular: Heart Auscultation: RRR Extremities: no edema The patient is alert and oriented. Mood and affect appeared normal. He answered all questions appropriately. HEENT: Pupils are equal and reactive to light and accommodation. Extraocular movements are intact. The sclerae are anicteric. Neuro: Cranial nerves intact Neck: Patient's neck is supple. He has palpable carotid pulses bilaterally without bruits on auscultation. There is no evidence of jugular venous distention. The thyroid is not enlarged. Lungs: Occasional rales mid way through the lungs bilaterally. He has good air movement without use of accessory muscles. No wheezes or rhonchi. Cardiac: Heart demonstrates a regular rate and rhythm. Normal S1 and S2. No murmurs on examination. Pulses: The patient has palpable radial pulses bilaterally that are equal in intensity Extremities: There was no evidence of hypoperfusion. There is no cyanosis or clubbing. Mild lower extremity edema to the mid calf. Skin: I did not appreciate any rashes on examination today. Data Laboratory Results: Last 24 Hours Test 12/02/17 09:40 12/02/17 09:50 12/02/17 11:30 12/02/17 17:41 White Blood Count 6.18 K/uL Red Blood Count 4.24 M/uL Hemoglobin 13.2 g/dL Hematocrit 39.7 % Mean Corpuscular Volume 93.6 fL Mean Corpuscular Hemoglobin 31.1 pg Mean Corpuscular Hemoglobin Concent 33.2 g/dl Platelet Count 159 K/uL Mean Platelet Volume 11.3 fL Neutrophils (%) (Auto) 78.8 % Lymphocytes (%) (Auto) 8.9 % Monocytes (%) (Auto) 9.2 % Eosinophils (%) (Auto) 2.4 % Basophils (%) (Auto) 0.5 % Neutrophils # (Auto) 4.87 K/uL Lymphocytes # (Auto) 0.55 K/uL Monocytes # (Auto) 0.57 K/uL Eosinophils # (Auto) 0.15 K/uL Basophils # (Auto) 0.03 K/uL RDW Standard Deviation 46.9 fL RDW Coefficient of Variation 13.7 % Immature Granulocyte % (Auto) 0.2 % Immature Granulocyte # (Auto) 0.01 K/uL Prothrombin Time 10.8 SECONDS Prothromb Time International Ratio 1.0 Activated Partial Thromboplast Time 25.7 SECONDS Partial Thromboplastin Ratio 1.0 Sodium Level 144 mmol/L Potassium Level 4.1 mmol/L Chloride Level 111 mmol/L Carbon Dioxide Level 26 mmol/L Anion Gap 7.0 mmol/L Blood Urea Nitrogen 25 mg/dl Creatinine 1.20 mg/dl Estimated GFR () 63.1 Estimated GFR (Non- 54.4 BUN/Creatinine Ratio 20.8 Random Glucose 129 mg/dl Calcium Level 9.4 mg/dl Magnesium Level 2.0 mg/dl Total Bilirubin 0.8 mg/dl Direct Bilirubin 0.3 mg/dl Aspartate Amino Transf (AST/SGOT) 36 U/L Alanine Aminotransferase (ALT/SGPT) 50 U/L Alkaline Phosphatase 89 U/L Troponin I 0.022 ng/ml 0.023 ng/ml Pro-B-Type Natriuretic Peptide 67236 pg/ml Total Protein 7.0 gm/dl Albumin 3.7 gm/dl Bedside Lactic Acid Venous 1.65 mmol/L Urine Color YELLOW Urine Appearance CLEAR Urine pH 5.0 Urine Specific [place] 1.017 Urine Protein NEG Urine Glucose (UA) NEG Urine Ketones NEG Urine Occult Blood NEG Urine Nitrite NEG Urine Bilirubin NEG Urine Urobilinogen NEG Urine Leukocyte Esterase NEG Test 12/02/17 23:44 12/03/17 05:42 Troponin I 0.021 ng/ml 0.028 ng/ml White Blood Count 5.26 K/uL Red Blood Count 3.99 M/uL Hemoglobin 12.5 g/dL Hematocrit 36.6 % Mean Corpuscular Volume 91.7 fL Mean Corpuscular Hemoglobin 31.3 pg Mean Corpuscular Hemoglobin Concent 34.2 g/dl Platelet Count 130 K/uL Mean Platelet Volume 11.2 fL Neutrophils (%) (Auto) 72.4 % Lymphocytes (%) (Auto) 12.7 % Monocytes (%) (Auto) 10.3 % Eosinophils (%) (Auto) 3.8 % Basophils (%) (Auto) 0.6 % Neutrophils # (Auto) 3.81 K/uL Lymphocytes # (Auto) 0.67 K/uL Monocytes # (Auto) 0.54 K/uL Eosinophils # (Auto) 0.20 K/uL Basophils # (Auto) 0.03 K/uL RDW Standard Deviation 45.0 fL RDW Coefficient of Variation 13.5 % Immature Granulocyte % (Auto) 0.2 % Immature Granulocyte # (Auto) 0.01 K/uL Sodium Level 145 mmol/L Potassium Level 3.4 mmol/L Chloride Level 107 mmol/L Carbon Dioxide Level 32 mmol/L Anion Gap 6.0 mmol/L Blood Urea Nitrogen 32 mg/dl Creatinine 1.48 mg/dl Est Creatinine Clear Calc Drug Dose 37.0 ml/min Estimated GFR () 49.0 Estimated GFR (Non- 42.2 BUN/Creatinine Ratio 21.4 Random Glucose 104 mg/dl Estimated Average Glucose 120 mg/dl Hemoglobin A1c 5.8 % Calcium Level 9.1 mg/dl Magnesium Level 1.8 mg/dl Total Bilirubin 1.0 mg/dl Aspartate Amino Transf (AST/SGOT) 25 U/L Alanine Aminotransferase (ALT/SGPT) 41 U/L Alkaline Phosphatase 75 U/L Total Protein 6.2 gm/dl Albumin 3.3 gm/dl Globulin 2.9 gm/dl Albumin/Globulin Ratio 1.1 Triglycerides Level 79 mg/dl Cholesterol Level 121 mg/dl HDL Cholesterol 53 mg/dl LDL Cholesterol, Calculated 52 mg/dl VLDL Cholesterol, Calculated 16 mg/dl Cholesterol/HDL Ratio 2.3 Telemetry reviewed: SR with intermittent AV block and pacing, IVCD on conducted beats Assessment and Plan 1. CHF: Probably related to stopping his meds, but will check an echo to make sure his LVEF has not declined further. 2. Cardiomyopathy: Non-ischemic, need to restart and increase his meds, specifically his carvedilol, lisinopril and Lasix.
[2017-12-03] MEDS ORDERED: CARVEDILOL 3.125 MG TAB PO ONE (10:45)
--- NOTE | 2017-12-03 13:51 | ECHOCARDIOGRAM REPORT ---
*NOTICE TO RECEIVING [employer] This information is strictly Confidential and protected under [place] law. [place] law prohibits you from making any further disclosure of this information unless further disclosure is expressly permitted by the written consent of the person to whom it pertains or is authorized by law. A general authorization for the release of medical or other information is not sufficient for this purpose. Hospital accepts no responsibility if the information is made available to any other person, INCLUDING THE PATIENT. Interpretation Summary * Name: GEORGIANA STOCKTON Americo Study Date: 12/03/2017 10:16 AM BP: 147/80 mmHg * Patient Location: [facility]\S\[id number]\S\1 HR: 70 * : 1930 (M/d/yyyy) Gender: Male Height: 70 in * Age: 87 yrs Ethnicity: [place] Weight: 154 lb * Ordering Physician: Eagle iMllan * Referring Physician: Self, Referred * Performed By: Karissa Dickens RCS * * Reason For Study: Follow up LVEF nonischemic CM * BSA: 1.9 m2 * -- Conclusions -- * Limited views were obtained. * Severely reduced LV systolic function * Ejection fraction 20-25% * Large left pleural effusion * Regional wall motion abnormalities with severe hypokinesis involving the inferior wall and moderate hypokinesis of the anterior and lateral basal segments. There are portions of the apex which are dyskinetic * Compared to an echocardiogram from 09/18/2017 there does not appear to be any significant change in the LV function or wall motion Procedure Details * A two-dimensional transthoracic echocardiogram was performed. * Limited views were obtained. MMode 2D Measurements and Calculations LVAd ap4 48.2 cm\S\2 LVLd ap4 10.2 cm EDV(MOD-sp4) 194.0 ml LVAs ap4 42.4 cm\S\2 LVLs ap4 10.2 cm ESV(MOD-sp4) 148.0 ml EF(MOD-sp4) 23.7 % LVAd ap2 56.1 cm\S\2 LVLd ap2 10.6 cm EDV(MOD-sp2) 258.0 ml LVAs ap2 45.5 cm\S\2 LVLs ap2 10.0 cm ESV(MOD-sp2) 179.0 ml EF(MOD-sp2) 30.6 % CO(MOD-sp4) 3.1 l/min CI(MOD-sp4) 1.7 l/min/m\S\2 SV(MOD-sp4) 46.0 ml SI(MOD-sp4) 24.6 ml/m\S\2 CO(MOD-sp2) 5.3 l/min CI(MOD-sp2) 2.8 l/min/m\S\2 SV(MOD-sp2) 79.0 ml SI(MOD-sp2) 42.3 ml/m\S\2
--- NOTE | 2017-12-03 18:15 | Hospitalist Progress Note ---
Hospitalist Progress Note Date of Service Dec 03, 2017. (Bria Puente PA-C) Subjective Pt evaluation today including: conversation w/ patient, physical exam, chart review, lab review, review of studies, review of inpatient medication list Patient seen and evaluated. No acute events overnight. Has intermittent Mobitz II on monitor but has pacer placed. Reporting breathing improved but still some PENA that is worse then baseline. Diuresing well. States when he ran out of Lasix he didn't know what he was supposed to do so just stopped monitoring. Constitutional: No fever, No chills Respiratory: + dyspnea on exertion, No dyspnea at rest Cardiovascular: No chest pain, No orthopnea Abdomen: No pain, No nausea, No vomiting, No diarrhea, No constipation Musculoskeletal: No swelling, No calf pain Male : No dysuria Heme: No abnormal bleeding/bruising (Bria Puente PA-C) Medications Current Inpatient Medications Medications (Trade) Dose Ordered Sig/Rhonda Route Start Time Stop Time Status Last Admin Dose Admin Alfuzosin HCl (Uroxatral Tab) 10 mg DAILY PO 12/03/17 09:00 01/02/18 08:59 12/03/17 08:18 10 MG Aspirin (Ecotrin Tab) 81 mg BID PO 12/02/17 21:00 01/01/18 20:59 12/03/17 08:19 81 MG Finasteride (Proscar Tab) 5 mg QAM PO 12/03/17 09:00 01/02/18 08:59 12/03/17 08:19 5 MG Lisinopril (Zestril Tab) 2.5 mg QAM PO 12/03/17 09:00 01/02/18 08:59 12/03/17 08:18 2.5 MG Simvastatin (Zocor Tab) 80 mg QPM PO 12/02/17 21:00 01/01/18 20:59 12/02/17 21:10 80 MG Terazosin HCl (Hytrin Cap) 10 mg DAILY PO 12/03/17 09:00 01/02/18 08:59 12/03/17 08:18 10 MG Ferrous Sulfate (Feosol Tab) 325 mg DAILY PO 12/03/17 09:00 01/02/18 08:59 12/03/17 08:17 325 MG Heparin Sodium (Porcine) (Heparin Sq 5000 Unit/0.5ml) 5,000 unit Q8 SQ 12/02/17 14:00 01/01/18 13:59 12/03/17 06:11 5,000 UNIT Acetaminophen (Tylenol Tab) 650 mg Q4H PRN PO 12/02/17 12:00 01/01/18 11:59 Al Hydrox/Mg Hydrox/Simethicone (Maalox Max Susp) 15 ml Q4H PRN PO 12/02/17 12:00 01/01/18 11:59 Magnesium Hydroxide (Milk Of Magnesia Susp) 30 ml Q12H PRN PO 12/02/17 12:00 01/01/18 11:59 Zolpidem Tartrate (Ambien Tab) 5 mg HSZ PRN PO 12/02/17 12:00 01/01/18 11:59 Zolpidem Tartrate (Ambien Tab) 5 mg HSZ PRN PO 12/02/17 12:00 01/01/18 11:59 Ondansetron HCl (Zofran Inj) 4 mg Q6H PRN IV 12/02/17 12:00 01/01/18 11:59 Nitroglycerin (Nitrostat Tab) 0.4 mg UD PRN SL 12/02/17 12:00 01/01/18 11:59 Polyethylene (Miralax Powder Packet) 17 gm DAILY PRN PO 12/02/17 12:00 01/01/18 11:59 Furosemide 20 mg/ Syringe 2 ml @ 4 mls/min BID IV 12/02/17 21:00 01/01/18 20:59 12/03/17 08:19 4 MLS/MIN Potassium Chloride (Klor-Con Tab) 20 meq QAM PO 12/03/17 09:00 01/02/18 08:59 12/03/17 09:23 20 MEQ Carvedilol (Coreg Tab) 6.25 mg BID PO 12/03/17 21:00 01/02/18 20:59 (Bria Puente, FABIENC) Objective Vital Signs Date Time Temp Pulse Resp B/P (MAP) Pulse Ox O2 Delivery O2 Flow Rate FiO2 12/03/17 16:00 90 Room Air 12/03/17 15:36 36.2 71 18 111/67 (82) 91 Room Air 12/03/17 12:00 Room Air 12/03/17 11:26 36.3 67 18 101/64 (76) 90 Room Air 12/03/17 08:30 Room Air 12/03/17 07:26 36.6 70 18 147/80 (102) 95 12/03/17 04:00 36.7 68 16 153/81 (105) 92 Room Air 12/03/17 04:00 Room Air 12/03/17 00:00 37.0 68 17 130/80 (97) 94 Room Air 12/03/17 00:00 Room Air 12/02/17 20:00 Room Air 12/02/17 19:44 36.7 77 18 130/79 (96) 91 Room Air (Bria Puente PA-C) Physical Exam General Appearance: WD/WN, no apparent distress Eyes: sclerae normal ENT: hearing grossly normal Neck: supple, no JVD, trachea midline Respiratory/Chest: no respiratory distress, no accessory muscle use, + crackles (bases b/l) Cardiovascular: regular rate, rhythm, + systolic murmur Abdomen: normal bowel sounds, non tender, soft Extremities: no pedal edema Neurologic/Psychiatric: alert Skin: normal color (Bria Puente PA-C) Laboratory Results Last 24 Hours Test 12/02/17 23:44 12/03/17 05:42 12/03/17 11:44 Troponin I 0.021 ng/ml 0.028 ng/ml < 0.015 ng/ml White Blood Count 5.26 K/uL Red Blood Count 3.99 M/uL Hemoglobin 12.5 g/dL Hematocrit 36.6 % Mean Corpuscular Volume 91.7 fL Mean Corpuscular Hemoglobin 31.3 pg Mean Corpuscular Hemoglobin Concent 34.2 g/dl Platelet Count 130 K/uL Mean Platelet Volume 11.2 fL Neutrophils (%) (Auto) 72.4 % Lymphocytes (%) (Auto) 12.7 % Monocytes (%) (Auto) 10.3 % Eosinophils (%) (Auto) 3.8 % Basophils (%) (Auto) 0.6 % Neutrophils # (Auto) 3.81 K/uL Lymphocytes # (Auto) 0.67 K/uL Monocytes # (Auto) 0.54 K/uL Eosinophils # (Auto) 0.20 K/uL Basophils # (Auto) 0.03 K/uL RDW Standard Deviation 45.0 fL RDW Coefficient of Variation 13.5 % Immature Granulocyte % (Auto) 0.2 % Immature Granulocyte # (Auto) 0.01 K/uL Sodium Level 145 mmol/L Potassium Level 3.4 mmol/L Chloride Level 107 mmol/L Carbon Dioxide Level 32 mmol/L Anion Gap 6.0 mmol/L Blood Urea Nitrogen 32 mg/dl Creatinine 1.48 mg/dl Est Creatinine Clear Calc Drug Dose 37.0 ml/min Estimated GFR () 49.0 Estimated GFR (Non- 42.2 BUN/Creatinine Ratio 21.4 Random Glucose 104 mg/dl Estimated Average Glucose 120 mg/dl Hemoglobin A1c 5.8 % Calcium Level 9.1 mg/dl Magnesium Level 1.8 mg/dl Total Bilirubin 1.0 mg/dl Aspartate Amino Transf (AST/SGOT) 25 U/L Alanine Aminotransferase (ALT/SGPT) 41 U/L Alkaline Phosphatase 75 U/L Total Protein 6.2 gm/dl Albumin 3.3 gm/dl Globulin 2.9 gm/dl Albumin/Globulin Ratio 1.1 Triglycerides Level 79 mg/dl Cholesterol Level 121 mg/dl HDL Cholesterol 53 mg/dl LDL Cholesterol, Calculated 52 mg/dl VLDL Cholesterol, Calculated 16 mg/dl Cholesterol/HDL Ratio 2.3 (Bria Puente, PA-C) Assessment and Plan 87 years old man with past medical history of nonischemic cardiomyopathy, 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 DVT Prophylaxis: Heparin Disposition: - PT/OT evaluations - Possible D/C tomorrow pending clinical course Continued [facility] stay due to: multiple IV medications needed Discharge planning: home (Bria Puente, FABIENC) Attending Attestation - Pt seen/examined, chart reviewed, care plan d/w VALENCIA Puente. I agree w/ the robbins components of her documentation. Pt feeling much better. Dyspnea improved. Tele w/ 2nd degree mobitz type 2 AV block. No chest pain now but vaguely recalls chest pain at home? VSS no fever gen - nad neck - minimal JVD heart - RRR, s1, s2, 2/6 systolic murmur RUSB lungs - decreased BS bases, worse on left; minimal crackle abd - soft, NT ext - no edema A/P: acute/chronic systolic/diastolic CHF - improved; cont diuresis as is; repeat labs in am. This decompensation was due to running out of lasix. new wall motion abnormalities - defer to cardiology if ischemic evaluation should be pursued. b/l effusions worse on left - uncertain if I would pursue thoracentesis given how good he feels and his improvement; cont lasix; hopefully both will resolve over time w/ ongoing lasix use. Demi PRADO MD (Dustin Prado MD)
[2017-12-03] MEDS: SIMVASTATIN 80 MG TAB PO SCH (21:21)
[2017-12-03] MEDS: CARVEDILOL 6.25 MG TAB PO SCH (21:21)
[2017-12-04 04:17] VITALS: BP 107/66; PULSE 64; TEMP 36.6; O2SAT 90
[2017-12-04] MEDS: HEPARIN SOD 5000 UNIT/0.5 ML CARP SQ SCH ×2 (06:33→14:00)
[2017-12-04 06:48] LABS: HEMATOCRIT 35.7 % (42-52); MEAN CELL VOLUME 91.8 fL (80-100); MEAN CORPUSCULAR HEMOGLOBIN 30.8 pg (25-34); MEAN CORPUSCULAR HGB CONC 33.6 g/dl (32-36); MEAN PLATELET VOLUME 10.7 fL (7.4-10.4); PLATELET COUNT 126 K/uL (130-400); RED CELL DISTRIBUTION WIDTH CV 13.3 % (11.5-14.5); RED CELL DISTRIBUTION WIDTH SD 44.6 fL (36.4-46.3); WHITE BLOOD COUNT 4.21 K/uL (4.8-10.8)
[2017-12-04 07:20] LABS: CALCIUM 9.4 mg/dl (8.5-10.1); CREATININE 1.34 mg/dl (0.60-1.40); POTASSIUM 3.5 mmol/L (3.5-5.1)
[2017-12-04 07:30] VITALS: BP 112/69; PULSE 74; TEMP 36.4; O2SAT 96
[2017-12-04 08:00] VITALS: O2SAT 96
[2017-12-04] MEDS: FERROUS SULFATE 325 MG TAB PO SCH (08:48)
[2017-12-04] MEDS: CARVEDILOL 6.25 MG TAB PO SCH (08:48)
[2017-12-04] MEDS: FUROSEMIDE INJ 20 MG in SYRINGE 0 ML IV SCH (08:49)
[2017-12-04] MEDS: FINASTERIDE 5 MG TAB PO SCH (08:49)
[2017-12-04] MEDS: ASPIRIN 81 MG ECTAB PO SCH (08:49)
[2017-12-04] MEDS: ALFUZosin TAB 10 MG TAB PO SCH (08:50)
[2017-12-04] MEDS: POTASSIUM CHLORIDE 20 MEQ TABCR PO SCH (08:50)
[2017-12-04] MEDS: LISINOPRIL 2.5 MG TAB PO SCH (08:50)
--- NOTE | 2017-12-04 10:06 | Cardiology Follow-Up ---
Subjective Date of Service: Dec 04, 2017. Pt evaluation today including: conversation w/ patient, physical exam, lab review, review of studies, review of inpatient medication list History of Present Illness 87 yo male with a non-ischemic cardiomyopathy, presents with CHF after stopping meds due to running out. His weight is up about 6 Kg from his last discharge weight, close to his last admission weight. He did not notice edema, he had PENA and orthopnea. He was discharge on Lasix 40 mg prn, Metoprolol succinate 25 mg daily and Lisinopril 2.5 mg daily. Here he has been on Lasix intravenously, I switched his metoprolol to carvedilol yesterday and continued his lisinopril. Follow-up echocardiography to look at his ejection fraction notes no change from his last hospitalization, which is not surprising. I also adjusted his pacing parameters as MVP mode (which is designed to minimize ventricular pacing but in his case was not doing so and was causing an irregular rate) is probably not useful for his particular rhythm. He continues to feel very well, he has no further orthopnea, no dyspnea on exertion with limited activity, and notes that he is still urinating quite a bit. Social History Smoking Status: Never Smoker History of Alcohol Use: No Review of Systems Respiratory: + dyspnea on exertion, No dyspnea at rest Cardiac: No chest pain, No orthopnea Medications Cardiovascular: Item Value Date Time Carvedilol 6.25 mg 12/03/17 2100 (Coreg Tab) BID/PO 12/04/17 0848 Lisinopril 2.5 mg 12/03/17 0900 (Zestril Tab) QAM/PO 12/04/17 0850 Aspirin 81 mg 12/02/17 2100 (Ecotrin Tab) BID/PO 12/04/17 0849 Simvastatin 80 mg 12/02/17 2100 (Zocor Tab) QPM/PO 12/03/17 2121 Furosemide 20 mg/ 2 ml @ 4 mls/min 12/02/17 2100 Syringe BID/IV 12/04/17 0849 Objective Vital Signs Past 12 Hours Date Time Temp Pulse Resp B/P (MAP) Pulse Ox O2 Delivery O2 Flow Rate FiO2 12/04/17 07:30 36.4 74 18 112/69 (83) 96 Room Air 12/04/17 04:17 36.6 64 16 107/66 (80) 90 Room Air 12/04/17 04:00 Room Air 12/04/17 00:00 Room Air 12/03/17 23:48 36.6 83 16 112/63 (79) 92 Room Air Last Recorded Weight-Kilograms: 68.900 Physical Exam Constitutional: Level of Distress: NAD Lungs: Auscultation: breath sounds normal Cardiovascular: Heart Auscultation: RRR Extremities: no edema Data Laboratory Results: Last 24 Hours Test 12/03/17 11:44 12/04/17 06:35 Troponin I < 0.015 ng/ml White Blood Count 4.21 K/uL Red Blood Count 3.89 M/uL Hemoglobin 12.0 g/dL Hematocrit 35.7 % Mean Corpuscular Volume 91.8 fL Mean Corpuscular Hemoglobin 30.8 pg Mean Corpuscular Hemoglobin Concent 33.6 g/dl RDW Standard Deviation 44.6 fL RDW Coefficient of Variation 13.3 % Platelet Count 126 K/uL Mean Platelet Volume 10.7 fL Sodium Level 144 mmol/L Potassium Level 3.5 mmol/L Chloride Level 109 mmol/L Carbon Dioxide Level 33 mmol/L Anion Gap 2.0 mmol/L Blood Urea Nitrogen 33 mg/dl Creatinine 1.34 mg/dl Est Creatinine Clear Calc Drug Dose 38.6 ml/min Estimated GFR () 55.2 Estimated GFR (Non- 47.6 BUN/Creatinine Ratio 24.9 Random Glucose 103 mg/dl Calcium Level 9.4 mg/dl Telemetry reviewed: Sinus rhythm with intermittent AV conduction and intermittent ventricular pacing appropriately. Assessment and Plan 1. CHF: He is worsening heart failure on admission appears to be due to discontinuation of his medications. He will need outpatient diuretic and we need to make sure that he has refills on his prescriptions. I am going to discontinue his intravenous diuretic as I do not want him to lose too much more fluid. 2. Cardiomyopathy: Non-ischemic, I have increased his beta-arlyn this admission, and switch to carvedilol which I think is a better long-term drug for him. We need to continue to titrate this as an outpatient. So far his cardiomyopathy has not changed, but that is not surprising. Over the long run we may have to consider ICD implantation if he does not improve, in addition we may have to consider biventricular pacing as he does have an intrinsically conducted left bundle branch block as well as a paced bundle branch block ( right ventricular pacing). I would like to try medical therapy first. I do not anticipate he needs to stay in house much longer. Thank you for allowing me to participate in his care.
[2017-12-04 11:37] VITALS: BP 105/69; PULSE 65; TEMP 36.7; O2SAT 93
[2017-12-04 12:00] VITALS: O2SAT 93
[2017-12-04] MEDS ORDERED: LSX20 PO (12:35)
[2017-12-04] MEDS ORDERED: CRG625 PO (12:35)
[2017-12-04] MEDS ORDERED: MCRK20 PO (12:35)
--- NOTE | 2017-12-04 12:45 | Discharge Instructions ---
Discharge Instructions Date of Service Dec 04, 2017. Admission Reason for Admission: Chf (Congestive Heart Failure) Discharge Discharge Diagnosis / Problem: Congestive Heart Failure Discharge Goals Goal(s): Decrease discomfort, Improve function, Increase independence Activity Recommendations Activity Limitations: resume your previous activity . Instructions / Follow-Up Instructions / Follow-Up Heart Failure: - You came in with a lot of extra fluid on you. And some medications were adjusted to help prevent this and to help protect your heart - Please check your weights daily to help monitor your weights and if you are holding on to more fluid - Your water pills have been adjusted as follows -- TAKE LASIX 20 MG DAILY....EVERY DAY. THIS WILL HELP KEEP THE FLUID OFF AND MAY NEED ADJUSTED WITH YOUR FOLLOW-UP APPOINTMENT WITH YOUR HEART DOCTOR - STOP METOPROLOL AND USE COREG 6.25 MG TWICE A DAY - CONTINUE LISINOPRIL 2.5 MG DAILY - CONTINUE SIMVASTATIN 80 MG DAILY - THE CHANGES TO YOUR MEDICINE WAS SENT TO YOUR PHARMACY Call your Primary Care doctor if any of the following symptoms or problems start or get worse: * Shortness of breath or difficulty breathing * Wake up at night short of breath * Chest pain * Cough * Swelling of your hands, feet, or legs * More fatigued or tired with your normal activity * Palpitations - sudden fast heart beats WEIGHT * Weigh yourself every morning after using the bathroom. * Use the same scale. * Wear the same amount of clothing. * Write your weight down on a chart. * Call your Primary Care doctor if you gain more than 2-3 pounds in 1-2 days. MEDICATIONS * Use this discharge instruction sheet for medication instructions. * Take your medications at the time your doctor ordered. * Do not skip a dose of your medicines. * If you miss a dose of medicine, take it as soon as possible, but DO NOT DOUBLE A DOSE. * Read your medicine information when you get home. * Know all of the side effects of your medicine. If in doubt, ask your pharmacist * Call your Primary Care doctor's office if you have any side effects. * Be sure all of your doctors know what medicine and herbs you take (including cold, flu, and herbal medicine). Take the following with you to your follow-up doctor appointments: * Weight Chart * Medication List * List of questions Do not drink excessive alcohol, beer or wine. Current Hospital Diet Patient's current hospital diet: AHA Diet (Heart Healthy) Discharge Diet Recommended Diet: AHA Diet (Heart Healthy) Pending Studies Studies pending at discharge: no Laboratory Results Hemoglobin A1c Test 12/03/17 05:42 Range/Units Estimated Average Glucose 120 mg/dl Hemoglobin A1c 5.8 H 4.5-5.6 % Lipid Panel Test 12/03/17 05:42 Range/Units Triglycerides Level 79 0-150 mg/dl Cholesterol Level 121 0-200 mg/dl HDL Cholesterol 53 mg/dl Cholesterol/HDL Ratio 2.3 LDL Cholesterol, Calculated 52 mg/dl Medical Emergencies . Who to Call and When: Call 911 or go to the Emergency Room if: * If at any time you feel your situation is an emergency * You have tightness or pain in your chest that does not go away with rest or Nitroglycerin * You are very short of breath even with rest . Non-Emergent Contact Non-Emergency issues call your: Primary Care Provider Call Non-Emergent contact if: you have a fever, your pain is concerning you, you have any medication questions . . "Provider Documentation" section prepared by Bria Puente. .
[2017-12-04 15:34] VITALS: BP 126/73; PULSE 70; TEMP 36.5; O2SAT 96
--- NOTE | 2017-12-04 16:25 | Discharge Summary ---
Discharge Summary Date of Service Dec 04, 2017. Discharge Summary Admission Date: Dec 02, 2017 at 11:52 Discharge Date: Dec 04, 2017 Discharge Disposition: Home with services Principal Diagnosis: Acute/Chronic Systolic CHF Problems/Secondary Diagnoses: 1. Syncope with Mobitz II and Complete HB S/P Pacer 2. Chronic Systolic CHF 3. HTN 4. BPH 5. CKD Stage III 6. Hyperlipidemia Immunizations: Have You Had Influenza Vaccine: Unknown History of Tetanus Vaccine?: Yes History of Pneumococcal: Unknown History of Hepatitis B Vaccine: No Procedures: CHEST ONE VIEW PORTABLE FINDINGS: Calcified left hilar nodes are noted. There is a dual lead left subclavian pacemaker. Cardiomegaly is noted. There is no pneumothorax. Small to moderate left and small right pleural effusions are noted. Left pleural effusion has slightly decreased in size since exam of September 18, 2017. Pulmonary vascular congestion is noted with suspected mild pulmonary edema. There are bibasilar opacities. IMPRESSION: 1. Small to moderate left and small right pleural effusions with associated bibasilar opacities. 2. Mild pulmonary edema. Echocardiogram: -- Conclusions -- * Limited views were obtained. * Severely reduced LV systolic function * Ejection fraction 20-25% * Large left pleural effusion * Regional wall motion abnormalities with severe hypokinesis involving the inferior wall and moderate hypokinesis of the anterior and lateral basal segments. There are portions of the apex which are dyskinetic * Compared to an echocardiogram from 09/18/2017 there does not appear to be any significant change in the LV function or wall motion Consultations: 1. Cardiology 2. PT/OT Medication Reconciliation New Medications: Carvedilol (Carvedilol) 6.25 Mg Tab 6.25 MG PO BID for 30 Days, #60 TAB Potassium Chloride (Klor-Con M20) 20 Meq Tabcr 20 MEQ PO QAM for 30 Days, #30 TABS Changed Medications: Furosemide (Furosemide) 20 Mg Tab 20 MG PO DAILY for 30 Days, #30 TABS 1 Refill (Changed from: Furosemide (Lasix) 40 Mg Tab 40 Mg PO DAILY PRN weight gain #30 TAB) Continued Medications: Alfuzosin HCl (Alfuzosin HCl ER) 10 Mg Tab 10 MG PO DAILY Aspirin (Aspirin Ec) 81 Mg Tab 81 MG PO BID Ferrous Sulfate (Kp Ferrous Sulfate) 325 Mg Tab 325 MG PO DAILY, 3 Refills Finasteride (Finasteride) 5 Mg Tab 5 MG PO QAM for 30 Days, #30 TAB 1 Refill Lisinopril (Lisinopril) 2.5 Mg Tab 2.5 MG PO QAM, #30 TAB 1 Refill Multiple Vitamin (Multivitamin) 1 Tab Tab 1 TAB PO DAILY, TAB Simvastatin (Zocor) 80 Mg Tab 80 MG PO QPM, TAB Terazosin Hcl (Hytrin) 10 Mg Cap 10 MG PO DAILY, CAP Discharge Exam Review of Systems: Constitutional: No fever, No chills, No weakness ENT: No nasal symptoms, No sore throat Respiratory: No cough, No dyspnea on exertion, No dyspnea at rest Cardiovascular: No chest pain Abdomen: No pain, No nausea, No vomiting, No diarrhea, No constipation Musculoskeletal: No swelling, No calf pain Genitourinary - Male: No dysuria Hematologic / Lymphatic: No abnormal bleeding/bruising Physical Exam: General Appearance: WD/WN, no apparent distress Eyes: sclerae normal ENT: hearing grossly normal Neck: supple, no JVD, trachea midline Respiratory/Chest: lungs clear, no respiratory distress, no accessory muscle use, + decreased breath sounds (bases b/l) Cardiovascular: regular rate, rhythm, + systolic murmur Abdomen / GI: normal bowel sounds, non tender, soft Extremities: no pedal edema Neurologic/Psychiatric: alert, oriented x 3 Skin: normal color, warm/dry Hospital Course ADMISSION: 87 years old man with past medical history of nonischemic cardiomyopathy, 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 Patient was recently discharged from the hospital after being treated for acute on chronic systolic congestive heart failure. Patient was giving Lasix 40 mg oral. As per patient he was told to take it daily and then take an extra tablet if gain weight. Patient stated that in one night he remembers gaining 10 pounds and he took an extra Lasix. After that the patient stated that he lost that weight in 1 day. Patient reported he ran out of his Lasix. Obviously he is poorly compliant and poor historian. Patient stated that within the last few days he has been having progressive shortness of breath. He did not take his weight. Last night he could not sleep flat in bed due to shortness of breath. He also developed 3/10 right-sided chest tightness that was worse with deep inspiration. Patient presented to the ED. his weight in the ED was 165 pounds, patient stated that his last weight was 150 pounds. Also reported bilateral lower extremity edema, his chest x-ray was suggestive for CHF. Patient will be admitted for further evaluation and management. 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 Calderon did adjust pacer settings CKD Stage II/III: - Slight worsening of Cr initially but stable - will need to monitor with continued diuresis Disposition: - Will get PCP and Cardiology F/U - Set up for home health services Attending Discharge Note & Attestation - Pt seen/examined, chart reviewed, discharge care plan d/w VALENCIA Puente. I agree w/ the robbins components of her discharge summary. 87yo male with chronic systolic CHF who presented with acute/chronic systolic CHF. Inadvertently the patient had been off his lasix for some time which led to his exacerbation. He diuresed well and became euvolemic rather quickly. He will return home on lasix 20mg daily as well as coreg & low-dose SHELLEY. There appears to be some element of mild cognitive impairment and for that reason a home health nurse will be set up for his home to help with medication compliance. Discharge exam - gen - NAD neck - no JVD heart - RRR, s1, s2 lungs - CTA b/l abd - soft, NT ext - no edema The patient has wall motion abnormalities on his echo (unchanged from prior echo ) but no obvious ischemic symptoms. Will defer to his primary stna any additional work-up needed. Dustin Prado MD Total Time Spent: Greater than 30 minutes This includes examination of the patient, discharge planning, medication reconciliation, and communication with other providers. Discharge Instructions Please refer to the electronic Patient Visit Report (Discharge Instructions) for additional information. Follow-Up [facility] on 12/11/17 at 11:00 am Additional Copies To Eagle Millan M.D.; Luis Patiño D.O.
[2017-12-05] MEDS ORDERED: FUROSEMIDE 20 MG TAB PO SCH (09:00)
== END 2017-12-04 17:04 | disposition home health service (06) | DRG 291 ==
LOC: C.EDB 09:20 → C.MED 11:52 → ENRESERV 12:10
PROVIDERS: ADMIT Internal Medicine; ATTEND Internal Medicine
DX: I13.0 Hypertensive heart and chronic kidney disease with heart failure and stage 1 through stage 4 chronic kidney disease, or unspecified chronic kidney disease (principal); I50.23 Acute on chronic systolic (congestive) heart failure; N40.0 Benign prostatic hyperplasia without lower urinary tract symptoms; I42.9 Cardiomyopathy, unspecified; N18.3 Chronic kidney disease, stage 3 (moderate); E78.5 Hyperlipidemia, unspecified; Z91.19 Patient's noncompliance with other medical treatment and regimen; Z96.659 Presence of unspecified artificial knee joint; Z95.0 Presence of cardiac pacemaker

== ENCOUNTER → 2017-12-11 | Outpatient (CLI) | payer OTHER ==
[~2017-12-11] MED LIST changes: -ASPEC81 PO; +ASPI81TA28 PO; +CRG625 PO; -FRS/40 PO; +LSX20 PO; +MCRK20 PO; -TPRSR25 PO; +URX/10 PO
[2017-12-11 13:50] LABS: BLOOD UREA NITROGEN 28 mg/dl (7-18); CALCIUM 9.3 mg/dl (8.5-10.1); CARBON DIOXIDE 30 mmol/L (21-32); CREATININE 1.15 mg/dl (0.60-1.40); GLUCOSE 103 mg/dl (70-99); SODIUM 144 mmol/L (136-145)
== END | disposition home or self-care (01) ==
LOC: C.LAB1850 12:04
PROVIDERS: ATTEND Internal Medicine Cardiovascular Disease
DX: I50.9 Heart failure, unspecified (principal)

== ENCOUNTER 2020-07-19 14:42 | Observation (INO) ==
--- NOTE | 2020-07-19 16:27 | XRay Report ---
XR chest 1V portable HISTORY: Atypical Chest Pain COMPARISON: Chest 02/19/2018. FINDINGS: No pneumothorax. Small bilateral pleural effusions. The heart remains mildly enlarged. Ther e is left-sided dual-chamber pacemaker. There are patchy bibasilar densities. The upper lung zones re main clear. Calcified AP window lymph nodes. There is mild central pulmonary vascular congestion with out overt edema. IMPRESSION: 1. Small bilateral pleural effusions and bibasilar densities. This could represent atelectasis or pne umonia. 2. Stable cardiomegaly. ACT 112: Negative or not required by law. Electronically signed by: Nathan Gardiner M.D. 07/19/2020 4:25 PM
[2020-07-19 16:45] LABS: Basophils # (auto) 0.03 K/uL (0-0.2); Basophils % (auto) 0.6 %; Eosinophils # (auto) 0.22 K/uL (0-0.5); Eosinophils % (auto) 4.1 %; Hematocrit (blood only) 38.8 % (42-52); Hemoglobin 12.7 g/dL (14.0-18.0); Immature Granulocytes # (auto) 0.01 K/uL (0.00-0.02); Immature Granulocytes % (auto) 0.2 %; Lymphocytes # (auto) 0.54 K/uL (1.2-3.4); Lymphocytes % (auto) 10.1 %; Mean Corpuscular Hemoglobin 31.1 pg (25-34); Mean Corpuscular Hgb Conc 32.7 g/dL (32-36); Mean Corpuscular Volume 95.1 fL (80-100); Mean Platelet Volume 11.5 fL (7.4-10.4); Monocytes # (auto) 0.47 K/uL (0.11-0.59); Monocytes % (auto) 8.8 %; Neutrophils # (auto) 4.07 K/uL (1.4-6.5); Neutrophils % (auto) 76.2 %; Platelet Count 164 K/uL (130-400); RDW Standard Deviation 45.3 fL (36.4-46.3); Red Blood Count 4.08 M/uL (4.7-6.1); White Blood Count 5.34 K/uL (4.8-10.8)
--- NOTE | 2020-07-19 16:48 | Emergency Department Note ---
Impression & Plan Chest pain, PENA (dyspnea on exertion), Pleural effusion, Hypoxia ED Provider Note NAME: GEORGIANA STOCKTON JR AGE: 89 SEX: M : 1930 ARRIVES VIA: Walk-In INFORMANT: Patient, ED PROVIDER(S): Tyrel Allen DO CHIEF COMPLAINT: Chest pain HPI: The patient is an 89-year-old male who presented to the emergency department for an evaluation of chest pain and difficulty breathing. The patient was placed directly in a COVMN-19 room. The patient states he has been having intermittent episodes of chest discomfort as well as difficulty breathing. He states he has shortness of breath with exertion. He denies having any cough or fever. The patient has not been seen by his primary care physician for the symptoms. The patient talked to his family member who is a tnt line supervisor and they recommended that he go to the emergency department for further evaluation. The patient denies having any fever. He has had no falls. He notices no swelling in the legs greater than usual. The patient states that he does not have chest pain at this time. He has had the symptoms intermittently over the course the last few weeks. ROS: See above HPI for pertinent positives & negatives. A total of 10 systems reviewed and were otherwise negative. PAST MEDICAL HISTORY: See Below PAST SURGICAL HISTORY: See Below FAMILY HISTORY: See Below SOCIAL HISTORY: See Below HOME MEDICATIONS: See Below ALLERGIES: See Below VITALS: See Below PHYSICAL EXAMINATION: GENERAL: Patient is awake alert in no acute distress patient is resting comfortably and showing no signs of anxiety EYES: The conjunctivae are clear. The pupils are round and reactive. EARS, NOSE, MOUTH AND THROAT: The nose is without any evidence of any deformity. NECK: The neck is nontender and supple. RESPIRATORY: Diminished breath sounds are noted throughout. There were rales at both bases. There was no tachypnea or conversational dyspnea. CARDIOVASCULAR: Regular rate and rhythm was noted to auscultation. Systolic murmur was suggested. GASTROINTESTINAL: The abdomen is soft. Abdomen is nontender. MUSCULOSKELETAL/EXTREMITIES: There is no evidence of gross deformity full range of motion is noted in the hips and shoulders. SKIN: There is no obvious evidence of any rash. Trace pedal edema was noted bilaterally NEUROLOGIC: Patient is awake alert and oriented x3. MEDICAL DECISION MAKING: The patient is an 89-year-old male who presented to the emergency department for an evaluation of chest pain and shortness of breath. The patient describes exertional shortness of breath. He does describe also intermittent chest pain. The chest pain does not always appear to be exertional in nature. The patient was found to have a murmur on physical exam. Lung x-ray showed rales at both bases. Chest x-ray suggested atelectasis but CT the chest was obtained which reveals pleural effusions. There are no signs of pulmonary embolism on CT. The patient was placed on supplemental oxygen. I discussed the patient's laboratory and radiographic studies with him. Given his symptoms I also discussed his case with the on-call [facility] hospitalist. The patient is experiencing significant dyspnea with any exertion. He may require further inpatient management and possible thoracentesis to evaluate the cause of the pleural effusion as well as treat the pleural effusions. The patient was agreeable to this plan. Triage Nursing notes reviewed. Prior medical records reviewed Vital Signs: reviewed and remarkable for hypoxia Differential diagnosis: Cardiac ischemia, aortic dissection, pulmonary embolism, pneumothorax, pneumonia, pericarditis, myocarditis, esophageal rupture, GERD, cholecystitis, pancreatitis, musculoskeletal, as well as other pathologies. ER treatment provided: See below Diagnostics interpreted by me: ECG: EKG was obtained in the emergency department. My interpretation is atrial sensed ventricular paced rhythm at 78 bpm. PVC was noted. Left bundle branch block pattern was favored. This was compared to a tracing from March 242017. Paced rhythm has replaced sinus rhythm compared to the earlier tracing. Cardiac Monitoring: An order was placed for continuous cardiac monitoring. The monitor shows a rate of 82 bpm with rhythm. Laboratory studies: As stated above and show below. Imaging studies: See below Consultation(s): 1855: I discussed this case with Dr. Fraser. 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 LAST CHECKED DECEMBER [address] ARANA. Transient ischemic attack (TIA) Vertigo Surgical History History of colonoscopy History of tonsillectomy History of total knee replacement BILATERAL S/P cataract surgery left. 01/28/19. 20mg propofol. no issues. 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 Beliefs That Will Affect Care: None marital status: Current Living Situation: Spouse current occupational status: retired Feels Safe at Home: Yes Childhood Exposure to Second-Hand Smoke: No Dental Care, Regularly: No Physical Activity Frequency: Does not Exercise Seatbelt Use: always Sunscreen Use: Yes Assistive Devices: Denture - Upper, Glasses and Hearing Aid - Bilateral Allergies Allergies Allergy/AdvReac Type Severity Reaction Status Date / Time No Known Drug Allergies Allergy Verified 07/13/20 12:07 Home Meds Home Medications Medication Instructions Recorded Confirmed ferrous sulfate 325 mg PO DAILY 01/19/19 07/13/20 rosuvastatin 20 mg PO QAM 01/19/19 07/13/20 tamsulosin 0.4 mg PO QAM 01/19/19 07/13/20 Previous Rx's Medication Instructions Recorded clopidogrel 75 mg tablet 75 mg PO QAM #90 tab 07/24/19 potassium chloride 20 mEq 20 meq PO DAILY #90 tab 12/22/19 tablet,extended release carvedilol 6.25 mg tablet 6.25 mg PO BID #180 tab 12/23/19 finasteride 5 mg tablet 5 mg PO DAILY #90 tab 01/27/20 furosemide 20 mg tablet 20 mg PO QAM #90 tab 05/20/20 Results & Data (ED) Vital Signs Vital Signs - 24 hr 07/19/20 14:49 07/19/20 15:49 07/19/20 15:55 Temperature 36.6 C Temperature Source Skin Pulse Rate 76 73 74 Pulse Rate from SpO2 Sensor 73 74 Respiratory Rate 20 15 16 Blood Pressure 144/81 H 130/79 Blood Pressure Mean 102 97 Pulse Oximetry 98 97 97 Oxygen Delivery Method Room Air Sepsis Recent Fever Within 48 Hours No Sepsis New/Unexplained Change in Mental Status N/A Sepsis Action Taken by Nursing No Action Required 07/19/20 16:00 07/19/20 16:01 07/19/20 16:30 Temperature Temperature Source Pulse Rate 69 66 66 Pulse Rate from SpO2 Sensor 69 66 67 Respiratory Rate 24 20 21 Blood Pressure 137/78 Blood Pressure Mean 97 Pulse Oximetry 97 97 95 Oxygen Delivery Method Sepsis Recent Fever Within 48 Hours Sepsis New/Unexplained Change in Mental Status Sepsis Action Taken by Nursing 07/19/20 16:40 07/19/20 16:41 07/19/20 17:00 Temperature Temperature Source Oral Pulse Rate 68 Pulse Rate from SpO2 Sensor 68 Respiratory Rate 21 Blood Pressure 124/72 Blood Pressure Mean 89 Pulse Oximetry 93 Oxygen Delivery Method Room Air Room Air Sepsis Recent Fever Within 48 Hours Sepsis New/Unexplained Change in Mental Status Sepsis Action Taken by Nursing 07/19/20 17:01 Temperature Temperature Source Pulse Rate 67 Pulse Rate from SpO2 Sensor 67 Respiratory Rate 23 Blood Pressure Blood Pressure Mean Pulse Oximetry 95 Oxygen Delivery Method Sepsis Recent Fever Within 48 Hours Sepsis New/Unexplained Change in Mental Status Sepsis Action Taken by Group Home Medications Current Medication List: was personally reviewed by me Laboratory Data Attestation: I reviewed the patient's lab results. Result diagrams: 07/19/20 16:27 07/19/20 16:27 Lab Results 07/19/20 07/19/20 07/19/20 Range/Units 16:27 16:27 16:27 WBC 5.34 (4.8-10.8) K/uL RBC 4.08 L (4.7-6.1) M/uL Hgb 12.7 L (14.0-18.0) g/dL Hct 38.8 L (42-52) % MCV 95.1 (80-100) fL MCH 31.1 (25-34) pg MCHC 32.7 (32-36) g/dL RDW Std Deviation 45.3 (36.4-46.3) fL RDW Coeff of Aretha 13.0 (11.5-14.5) % Plt Count 164 (130-400) K/uL MPV 11.5 H (7.4-10.4) fL Immature Gran % (Auto) 0.2 % Neut % (Auto) 76.2 % Lymph % (Auto) 10.1 % Marshall % (Auto) 8.8 % Eos % (Auto) 4.1 % Baso % (Auto) 0.6 % Neut # (Auto) 4.07 (1.4-6.5) K/uL Lymph # (Auto) 0.54 L (1.2-3.4) K/uL Marshall # (Auto) 0.47 (0.11-0.59) K/uL Eos # (Auto) 0.22 (0-0.5) K/uL Baso # (Auto) 0.03 (0-0.2) K/uL Immature Gran # (Auto) 0.01 (0.00-0.02) K/uL PT 11.3 (9.0-12.0) Seconds INR 1.1 (0.9-1.1) APTT 26.6 (21.0-31.0) Seconds PTT Ratio 1.0 D-Dimer 800 H* (0-500) ug/L FEU Sodium 145 (136-145) mmol/L Potassium 4.2 (3.5-5.1) mmol/L Chloride 112 H (98-107) mmol/L Carbon Dioxide 27 (21-32) mmol/L Anion Gap 6.0 (3-11) BUN 27 H (7-18) mg/dl Creatinine 1.41 H (0.6-1.4) mg/dl Est Cr Clr Drug Dosing 35.9 ml/min Est GFR ( Amer) 51.2 Est GFR (Non-Af Amer) 44.2 BUN/Creatinine Ratio 19.3 (10-20) Glucose 126 H (70-99) mg/dl Calcium 9.7 (8.5-10.1) mg/dl Total Bilirubin 0.7 (0.2-1) mg/dl AST 15 (15-37) U/L ALT 16 (12-78) U/L Alkaline Phosphatase 76 (45-117) U/L Troponin I 0.015 (0-0.045) ng/ml Total Protein 6.6 (6.4-8.2) gm/dl Albumin 3.4 (3.4-5.0) gm/dl Globulin 3.2 (2.5-4.0) gm/dl Albumin/Globulin Ratio 1.1 (0.9-2) Lipase 133 (73-393) U/L COVID-19 Eval Order SARS-CoV-2, RNA, NAAT (NEGATIVE) 07/19/20 07/19/20 Range/Units 16:27 16:27 WBC (4.8-10.8) K/uL RBC (4.7-6.1) M/uL Hgb (14.0-18.0) g/dL Hct (42-52) % MCV (80-100) fL MCH (25-34) pg MCHC (32-36) g/dL RDW Std Deviation (36.4-46.3) fL RDW Coeff of Aretha (11.5-14.5) % Plt Count (130-400) K/uL MPV (7.4-10.4) fL Immature Gran % (Auto) % Neut % (Auto) % Lymph % (Auto) % Marshall % (Auto) % Eos % (Auto) % Baso % (Auto) % Neut # (Auto) (1.4-6.5) K/uL Lymph # (Auto) (1.2-3.4) K/uL Marshall # (Auto) (0.11-0.59) K/uL Eos # (Auto) (0-0.5) K/uL Baso # (Auto) (0-0.2) K/uL Immature Gran # (Auto) (0.00-0.02) K/uL PT (9.0-12.0) Seconds INR (0.9-1.1) APTT (21.0-31.0) Seconds PTT Ratio D-Dimer (0-500) ug/L FEU Sodium (136-145) mmol/L Potassium (3.5-5.1) mmol/L Chloride (98-107) mmol/L Carbon Dioxide (21-32) mmol/L Anion Gap (3-11) BUN (7-18) mg/dl Creatinine (0.6-1.4) mg/dl Est Cr Clr Drug Dosing ml/min Est GFR ( Amer) Est GFR (Non-Af Amer) BUN/Creatinine Ratio (10-20) Glucose (70-99) mg/dl Calcium (8.5-10.1) mg/dl Total Bilirubin (0.2-1) mg/dl AST (15-37) U/L ALT (12-78) U/L Alkaline Phosphatase (45-117) U/L Troponin I (0-0.045) ng/ml Total Protein (6.4-8.2) gm/dl Albumin (3.4-5.0) gm/dl Globulin (2.5-4.0) gm/dl Albumin/Globulin Ratio (0.9-2) Lipase (73-393) U/L COVID-19 Eval Order Covid19 IDNow atMNVC SARS-CoV-2, RNA, NAAT NEGATIVE (NEGATIVE) Administered Medications Discontinued Medications Ioversol (Optiray 320 125ml) 98 ml IV ONCE ONE Stop: 07/19/20 18:02 Last Admin: 07/19/20 18:02 Dose: 98 ml Documented by: [id number] Imaging Data Radiologist's Impression: Patient: GEORGIANA STOCKTON JR Admit Date: 07/19/20 MR#: [id number] Address1: [address] [place] [address] Acct ID:[id number] Address2: Date: 1930 [facility] Zip: [place] [address] Age: 89 Location: ED Sex: M Room/Bed: Att Phy: Diagnosis: SOB Natalie Phy: Luis Patiño DO Service Date: 07/19/20 Fam Phy: Interpreting Phy: Fernando Nolen MD Admit Phy: Ordering Phy: Tyrel Allen DO cc: ~ CT ANGIOGRAM OF THE CHEST CLINICAL HISTORY: Atypical chest pain COMPARISON STUDY: Chest x-ray dated 07/19/2020 TECHNIQUE: Following the IV administration of 93 mL of Optiray-320, CT angiogram of the thorax was performed from the thoracic inlet to the lung bases utilizing the pulmonary embolus protocol. Images are reviewed in the axial, sagittal, and coronal planes. IV contrast was administered without complication. MIP imaging was performed. A dose lowering technique was utilized adhering to the principles of ALARA. CT DOSE: 297.83 mGy.cm FINDINGS: There is mild mediastinal lymphadenopathy with mildly enlarged prevascular right paratracheal AP window and subcarinal nodes. There are borderline enlarged hilar lymph nodes. There is mild dilatation of ascending thoracic aorta which measures 38 mm. The heart is enlarged with left atrial dilatation. There are coronary artery calcifications. There is no pericardial effusion. There is reflux of contrast into the hepatic veins suggesting an element of right heart dysfunction. There were no pulmonary artery filling defects to indicate acute pulmonary embolism. There is suboptimal evaluation of the left lower lobe pulmonary arteries No pleural effusions are visualized. There are [id number] bilateral pleural effusions. There is mild septal edema. There are mild dependent airspace opacities, likely representing atelectasis. There is lower lobe bronchial wall thickening and mucous plugging. IMPRESSION: 1. Motion degraded study 2. No evidence of acute pulmonary embolism 3. Guqdn-pu-aquvifjw bilateral pleural effusions. 4. Cardiomegaly, left atrial enlargement, evidence of right heart dysfunction, mild septal edema. 5. Basilar atelectasis. Lower lobe bronchial wall thickening and mucous plugging. 6. Mild mediastinal lymphadenopathy ACT 112: Negative or not required by law. Electronically signed by: Fernando Nolen M.D. 07/19/2020 6:11 PM Dictated: 07/19/201806 Transcribed: 07/19/201806 Patient: GEORGIANA STOCKTON JR Admit Date: 07/19/20 MR#: [id number] Address1: [address] [place] [address] Acct ID:[id number] Address2: Date: 1930 [facility] Zip: [place] [address] Age: 89 Location: ED Sex: M Room/Bed: Att Phy: Diagnosis: SOB Natalie Phy: Luis Patiño DO Service Date: 07/19/20 Fam Phy: Interpreting Phy: Nathan Gardiner MD Admit Phy: Ordering Phy: Tyrle Allen DO cc: ~ XR chest 1V portable HISTORY: Atypical Chest Pain COMPARISON: Chest 02/19/2018. FINDINGS: No pneumothorax. Small bilateral pleural effusions. The heart remains mildly enlarged. There is left-sided dual-chamber pacemaker. There are patchy bibasilar densities. The upper lung zones remain clear. Calcified AP window lymph nodes. There is mild central pulmonary vascular congestion without overt edema. IMPRESSION: 1. Small bilateral pleural effusions and bibasilar densities. This could repr esent atelectasis or pneumonia. 2. Stable cardiomegaly. ACT 112: Negative or not required by law. Electronically signed by: Nathan Gardiner M.D. 07/19/2020 4:25 PM Dictated: 07/19/201623 Transcribed: 07/19/201623 Blood Pressure Blood Pressure Findings: Normal blood pressure Discharge Plan Visit Data Chief Complaint: Shortness of Breath/Dyspnea Stated Complaint: SOB ED Provider: Tyrel Allen Discharge Problem: Chest pain, PENA (dyspnea on exertion), Pleural effusion, Hypoxia Patient Disposition: Being Evaluated by Hospitalist Condition: Good Forms Stand Alone Forms: My [facility] Prescriptions Prescriptions: No Action clopidogrel 75 mg tablet 75 mg PO QAM Qty: 90 RF: 3 potassium chloride 20 mEq tablet extended release 20 meq PO DAILY Qty: 90 RF: 3 carvedilol 6.25 mg tablet 6.25 mg PO BID Qty: 180 RF: 3 finasteride 5 mg tablet 5 mg PO DAILY Qty: 90 RF: 1 furosemide 20 mg tablet 20 mg PO QAM Qty: 90 RF: 3 tamsulosin 0.4 mg Capsule 0.4 mg PO QAM RF: 0 ferrous sulfate 325 mg (65 mg iron) Tablet 325 mg PO DAILY RF: 0 rosuvastatin 20 mg Tablet 20 mg PO QAM RF: 0 Referrals Referrals: Luis Patiño DO [Primary Care Provider] -
[2020-07-19 16:56] LABS: INR 1.1 (0.9-1.1); Partial Thromboplastin Time 26.6 Seconds (21.0-31.0); Prothrombin Time 11.3 Seconds (9.0-12.0)
[2020-07-19 17:01] LABS: D Dimer 800 ug/L FEU (0-500)
[2020-07-19 17:03] LABS: Albumin Level 3.4 gm/dl (3.4-5.0); BUN Creatinine Ratio 19.3 (10-20); Calcium 9.7 mg/dl (8.5-10.1); Creatinine Clr Calc Pharmacy 35.9 ml/min; Est GFR (African American) 51.2; Est GFR (Non-African American) 44.2; Potassium 4.2 mmol/L (3.5-5.1)
[2020-07-19 17:08] LABS: Albumin Globulin Ratio 1.1 (0.9-2); Bilirubin,Total 0.7 mg/dl (0.2-1); Globulin 3.2 gm/dl (2.5-4.0); Total Protein 6.6 gm/dl (6.4-8.2); Troponin I 0.015 ng/ml (0-0.045)
[2020-07-19] MEDS ORDERED: OPTIRAY 320 125ml IV ONE (18:01)
--- NOTE | 2020-07-19 18:12 | CT Scan Report ---
CT ANGIOGRAM OF THE CHEST CLINICAL HISTORY: Atypical chest pain COMPARISON STUDY: Chest x-ray dated 07/19/2020 TECHNIQUE: Following the IV administration of 93 mL of Optiray-320, CT angiogram of the thorax was pe rformed from the thoracic inlet to the lung bases utilizing the pulmonary embolus protocol. Images ar e reviewed in the axial, sagittal, and coronal planes. IV contrast was administered without complicat ion. MIP imaging was performed. A dose lowering technique was utilized adhering to the principles of ALARA. CT DOSE: 297.83 mGy.cm FINDINGS: There is mild mediastinal lymphadenopathy with mildly enlarged prevascular right paratracheal AP wind ow and subcarinal nodes. There are borderline enlarged hilar lymph nodes. There is mild dilatation of ascending thoracic aorta which measures 38 mm. The heart is enlarged with left atrial dilatation. There are coronary artery calcifications. There is no pericardial effusion. There is reflux of contrast into the hepatic veins suggesting an element of right heart dysfunction. There were no pulmonary artery filling defects to indicate acute pulmonary embolism. There is subopti mal evaluation of the left lower lobe pulmonary arteries No pleural effusions are visualized. There are caggt-dy-pjwoidhn bilateral pleural effusions. There is mild septal edema. There are mild dependent airspace opacities, likely representing atelecta sis. There is lower lobe bronchial wall thickening and mucous plugging. IMPRESSION: 1. Motion degraded study 2. No evidence of acute pulmonary embolism 3. Ofyyu-ma-qofysbpd bilateral pleural effusions. 4. Cardiomegaly, left atrial enlargement, evidence of right heart dysfunction, mild septal edema. 5. Basilar atelectasis. Lower lobe bronchial wall thickening and mucous plugging. 6. Mild mediastinal lymphadenopathy ACT 112: Negative or not required by law. Electronically signed by: Fernando Nolen M.D. 07/19/2020 6:11 PM
[2020-07-19] MEDS ORDERED: ALUMINUM/MAGNESIUM SUSP 30 ML UDC PO PRN (19:53)
[2020-07-19] MEDS ORDERED: ONDANSETRON INJ 2 MG/ML 2 ML VIAL IV PRN (19:53)
[2020-07-19] MEDS ORDERED: ACETAMINOPHEN 325 MG TAB PO PRN (19:53)
[2020-07-19] MEDS ORDERED: MAGNESIUM HYDROXIDE SUSP 30 ML UDC PO PRN (19:53)
[2020-07-19] MEDS ORDERED: POLYETHYLENE (MIRALAX) 17 GM PACK PO PRN (19:53)
[2020-07-19] MEDS ORDERED: FUROSEMIDE 40 MG/4 ML VIAL IV STA (19:57)
--- NOTE | 2020-07-19 20:14 | History & Physical Report ---
Date of Service July 19, 2020 Assessment & Plan (1) PENA (dyspnea on exertion): Mr. Andrew is an 89 yo M with a PMHx of HFrEF who presented for evaluation of dyspnea with exertion and mild chest discomfort of 1 week duration. - differential at this time consists of CHF exacerbation (and subsequent volume overload) vs. progression of known aortic stenosis vs. acute coronary syndrome - chest CTA showing small to moderate bilateral pleural effusions, suggestive of volume overload due to CHF exacerbation - chest pain present for past week - history not concerning for ACS. Troponin x 1 not elevated. EKG without ST segment changes - Moderate aortic stenosis noted on 2018 echo. Patient does complain of ongoing lightheadedness with walking. Repeat echo in am to assess for progression of valvular disease. - afebrile. WBC normal. COVID neg. No consolidation consistent with PNA on chest imaging. No concern for infectious etiology at this time - D-dimer elevated, but chest CTA showing no evidence of pulmonary embolism - patient is currently saturating well on room air (2) Chest pain: - dull discomfort present over past week; not reproducible on exam - EKG on admission without signs of ST segment changes - initial trop at 0.015 - repeat trop in am - ACS thought to be unlikely (3) CHF (congestive heart failure): - suspect mild acute exacerbation due to dietary sodium indiscretion - Most recent echo 12/2017 showing severe LV dilation (EF 15-20%), several global hypokinesis, moderate aortic stenosis, mild-moderate mitral regurgitation - patient mildly hypervolemic on exam - Chest imaging showing bilateral pleural effusions as above - BNP ordered - Daily weights, I/Os - IV lasix 20mg ordered on admission - continue home carvedilol - hold home furosemide while using IV dosing - of note, patient is not on an SHELLEY/ARB. Consider adding - repeat echo in am (4) Pleural effusion: - Chest CTA showing bilateral pleural effusions - likely secondary to CHF exacerbation - IV lasix as above (5) Mucus plugging of bronchi: - lower lobe bronchial wall thickening and mucous plugging noted on Chest CTA - patient does not appear to be at risk for aspiration, but can consider speech eval (6) Elevated serum creatinine: - Cr 1.41 on admission - baseline Cr appears to be 1.1 - 1.3 - BUN mildly elevated to 27; ratio 19 - possibly secondary to renal hypoperfusion; lasix as above - BMP in am (7) Anemia: - Hgb 12.7, MCV 95 - anemia not significant enough to be responsible for dyspnea - recommend iron panel, B12 and folate as outpatient - Diet: Heart Healthy, low sodium, fluid restrict to 1200ml - Code: okay with cardiac resuscitation, DNI - Dispo: Med/Surg with tele -DVT ppx: SCDs History of Present Illness Primary Care Provider: Luis Patiño DO Mr. Andrew is an 89 yo M with a PMHx of HFrEF and aortic stenosis who presented for evaluation of dyspnea with exertion and mild chest discomfort of 1 week duration. Mr. Andrew denies any sharp shooting chest pain with associated nausea or diaphoresis. He denies any cough, fever or chills. He has not noticed any early satiety, increased abdominal girth, or LE edema. He does not sleep with multiple pillows to prop himself up. He does experience dizziness with ambulation, but this has been ongoing for several years - he has brought this to the attention to his PCP at [facility] but reports that they have been unable to determine a cause. When asked about his medication regimen, he is unable to name any medications he takes; he says his keeps tract of them for him. His does all of the cooking - they never add salt to their food because they both have heart problems. He did report eating canned soup last night for dinner. He also admits to eating "lightly salted" tortilla chips over the past week. Upon further clarification from his son Kosta, Mr. Childers's current medication list does include furosemide 20mg, qam. In the ED his WBC was normal. COVID 19 neg. D-dimer was elevated to 800. Creatinine was 1.4. Electrolytes normal. Troponin 0.015. EKG showing atrial sensed ventricular paced rhythm; PVCs, LBBB. CXR showing small bilateral pleural effusions. Chest CTA showing no evidence of a pulmonary embolism; small to moderate bilateral pleural effusions; bibasilar atelectasis. Allergies Allergy/AdvReac Type Severity Reaction Status Date / Time No Known Drug Allergies Allergy Verified 07/13/20 12:07 Home Medications Medication Instructions Recorded Confirmed Type ferrous sulfate 325 mg PO DAILY 01/19/19 07/19/20 History clopidogrel 75 mg tablet 75 mg PO QAM #90 tab 12/13/19 12/08/20 Rx potassium chloride 20 mEq 20 meq PO DAILY #90 tab 12/22/19 07/19/20 Rx tablet,extended release carvedilol 6.25 mg tablet 6.25 mg PO BID #180 tab 12/23/19 07/19/20 Rx finasteride 5 mg tablet 5 mg PO DAILY #90 tab 01/27/20 07/19/20 Rx furosemide 20 mg tablet 20 mg PO QAM #90 tab 05/20/20 07/19/20 Rx Past Med/Surg History Medical History BPH (benign prostatic hyperplasia) Bradycardia REASON FOR PACEMAKER Cancer SKIN CANCER Carotid stenosis, left Hearing deficit Hyperlipidemia Hypertension Osteoarthritis Pacemaker PLACED 2015 AT [facility], [employer]. LAST CHECKED DECEMBER [address] ARANA. Transient ischemic attack (TIA) Vertigo Surgical History History of colonoscopy History of tonsillectomy History of total knee replacement BILATERAL S/P cataract surgery left. 01/28/19. 20mg propofol. no issues. S/P total knee arthroplasty BILATERAL REVISION Family History Sister Cancer Father Heart disease Denies family history of Ovarian cancer Prostate cancer Diabetes Breast cancer Lung cancer Hypertension Stroke Social History Smoking Status: Never smoker Second Hand Exposure: No; Do You Dip or Chew Tobacco: No; Tobacco Cessation Education Requested by Patient: No Hx Alcohol Use: No Hx Substance Use: No Preferred Language: Djiboutian Communication Ability: Effective Death Claim Clerk Required: No Beliefs That Will Affect Care: None marital status: Current Living Situation: Spouse current occupational status: retired Other Information That Helps Us Care for You: No Feels Safe at Home: Yes Safety Concerns: Feels Safe At This Time Childhood Exposure to Second-Hand Smoke: No Dental Care, Regularly: No Physical Activity Frequency: Does not Exercise Seatbelt Use: always Sunscreen Use: Yes Assistive Devices: Glasses Review of Systems Constitutional: no fever and no chills Respiratory: + dyspnea; no cough Cardiovascular: no orthopnea Additional Comments: Dizziness when walking Gastrointestinal: no early satiety no increase in abdominal girth Physical Exam Constitutional: WD/WN, vitals as above cooperative; no acute distress Eyes: + anicteric sclerae ENMT: external ear and nose normal, oropharynx normal Neck: normal visual inspection and trachea midline Respiratory: normal respiratory effort, lungs clear to auscultation no cough Auscultation: + rales (fine, bilateral lung bases); no crackles and no wheezes Cardiovascular: Rate/Rhythm: regular rate and regular rhythm Heart Sounds: normal S1 and normal S2 Palpation: S3 nonpalpable Vessels: normal carotid upstroke; no JVD and no carotid bruit Extremities: + pedal edema (trace) heart sounds distant Chest (Breasts): Chest: + pacemaker Gastrointestinal (Abdomen): normal bowel sounds, soft, nontender, no hepatosplenomegaly Skin: no rashes, warm and dry Psychiatric: A+Ox3, euthymic affect Results & Data Results & Data ([facility]) Vital Signs (Past 12 Hours) Vital Signs Temp Pulse Pulse Resp BP BP Pulse Ox 07/19/20 19:24 76 20 132/80 97 07/19/20 18:31 67 22 93 07/19/20 18:30 73 19 136/90 92 07/19/20 18:21 70 24 131/81 95 07/19/20 18:04 85 94 07/19/20 17:31 65 21 94 07/19/20 17:30 68 23 130/71 92 07/19/20 17:01 67 23 95 07/19/20 17:00 68 21 124/72 93 07/19/20 16:30 66 21 95 07/19/20 16:01 66 20 97 07/19/20 16:00 69 24 137/78 97 07/19/20 15:55 74 16 97 07/19/20 15:49 73 15 130/79 97 07/19/20 14:49 36.6 C 76 20 144/81 H 98 Supervising Physician Co-Signing Physician Notes I personally saw and examined the patient. I verified all robbins points and agree with resident physician Dr. Yin with the following exceptions and/or additions: 89-year-old male with known cardiomyopathy and history of congestive heart failure presents to the ER with shortness of breath on exertion for 1-2 weeks with associated chest pressure also on exertion. Not specifically worse in the last few days, but appears to be slowly progressing. O/E ejection systolic murmur 4/6 loudest right upper sternal border, quiet heart sounds, reduced air entry to bases but no crackles, elevated JVD, pedal edema 1+ to mid shins A/P CHF -patient unsure of his usual medication and unclear whether he has been taking Lasix. Diet appears to be high in sodium with canned goods and chips. Agree with Lasix 20 mg IV with reassessment tomorrow. [facility]. Resident Activity Tracking Resident Involvement: Resident Care Provided Care Provided: Adult Hospital Medicine (1) Chest pain Chest pain type: unspecified Qualified Code(s): R07.9 - Chest pain, unspecified
[2020-07-19] MEDS ORDERED: PNEUMOCOCCAL ADMINISTRATION CHARGE ONE (21:53)
[2020-07-19] MEDS ORDERED: PNEUMOCOCCAL POLYSACCHARIDES 25 MCG/0.5 ML VIAL/SYR IM ONE (21:53)
[2020-07-19] MEDS: carvediloL 6.25 MG TAB PO SCH (22:18)
[2020-07-20 07:59] LABS: BUN Creatinine Ratio 19.5 (10-20); Calcium 9.6 mg/dl (8.5-10.1); Creatinine Clr Calc Pharmacy 35.3 ml/min; Est GFR (African American) 53.9; Est GFR (Non-African American) 46.5; Potassium 3.7 mmol/L (3.5-5.1)
[2020-07-20 08:04] LABS: Troponin I 0.032 ng/ml (0-0.045)
[2020-07-20] MEDS: carvediloL 6.25 MG TAB PO SCH (08:31)
[2020-07-20] MEDS ORDERED: FINASTERIDE 5 MG TAB PO SCH (09:00)
[2020-07-20] MEDS ORDERED: CLOPIDOGREL BISULFATE 75 MG TAB PO SCH (09:00)
[2020-07-20] MEDS ORDERED: FERROUS SULFATE 325 MG TAB PO SCH (09:00)
[2020-07-20] MEDS ORDERED: POTASSIUM CHLORIDE CRTAB 20 MEQ TABCR PO SCH (09:00)
--- NOTE | 2020-07-20 10:36 | Billing Data ---
Date of Service July 19, 2020 Coding Level of Care Code 40269 Initial Inpt Care Lvl 3
--- NOTE | 2020-07-20 13:33 | Electrocardiogram Report ---
Test Reason : Blood Pressure : / mmHG Vent. Rate : 078 BPM Atrial Rate : 078 BPM P-R Int : 296 ms QRS Dur : 210 ms QT Int : 472 ms P-R-T Axes : 046 -67 105 degrees QTc Int : 538 ms Atrial-sensed ventricular-paced rhythm with prolonged AV conduction with Premature atrial complexes w ith Aberrant conduction Abnormal ECG When compared with ECG of 19-FEB-2018 15:35, Electronic ventricular pacemaker has replaced Electronic atrial pacemaker Confirmed by Tyrel Rodriguez ([id number]) on 07/20/2020 1:33:42 PM Referred By: SELF Confirmed By:Tyrel Rodriguez
--- NOTE | 2020-07-20 16:12 | XCELERA ---
[id number]
--- NOTE | 2020-07-20 16:52 | Discharge Summary ---
Date of Service July 20, 2020 Admission HPI Per Admitting Provider Mr. Andrew is an 89 yo M with a PMHx of HFrEF and aortic stenosis who presented for evaluation of dyspnea with exertion and mild chest discomfort of 1 week duration. Mr. Andrew denies any sharp shooting chest pain with associated nausea or diaphoresis. He denies any cough, fever or chills. He has not noticed any early satiety, increased abdominal girth, or LE edema. He does not sleep with multiple pillows to prop himself up. He does experience dizziness with ambulation, but this has been ongoing for several years - he has brought this to the attention to his PCP at [facility] but reports that they have been unable to determine a cause. When asked about his medication regimen, he is unable to name any medications he takes; he says his keeps tract of them for him. His does all of the cooking - they never add salt to their food because they both have heart problems. He did report eating canned soup last night for dinner. He also admits to eating "lightly salted" tortilla chips over the past week. Upon further clarification from his son Kosta, Mr. Childers's current medication list does include furosemide 20mg, qam. In the ED his WBC was normal. COVID 19 neg. D-dimer was elevated to 800. Creatinine was 1.4. Electrolytes normal. Troponin 0.015. EKG showing atrial sensed ventricular paced rhythm; PVCs, LBBB. CXR showing small bilateral pleural effusions. Chest CTA showing no evidence of a pulmonary embolism; small to moderate bilateral pleural effusions; bibasilar atelectasis. Principal Diagnosis Pt states he is feeling back to his usual. He has been OOB multiple times to the bathroom and no further PENA. No further chest pain. Tolerating PO without issue. Pt denies fever, abd pain, n/v/c/d, LE pain or swelling. Discharge Exam Constitutional WD/WN, vitals as above Eyes normal visual campbell by confrontation and + anicteric sclerae Neck normal visual inspection and trachea midline Respiratory normal respiratory effort, lungs clear to auscultation Cardiovascular Rate/Rhythm: regular rate and regular rhythm Gastrointestinal (Abdomen) Inspection/Auscultation: abdomen not distended Percussion/Palpation: abdomen soft; abdomen nontender Musculoskeletal Head/Neck/Chest: normocephalic and head atraumatic Skin no rashes, warm and dry Neurologic awake; not confused Speech / Cognition: normal speech Psychiatric A+Ox3, euthymic affect Discharge Data Allergies Allergy/AdvReac Type Severity Reaction Status Date / Time No Known Drug Allergies Allergy Verified 07/13/20 12:07 Consultations 07/19/20 18:55 ED Decision to Admit Stat 07/19/20 21:15 Consult Health Information Management Routine Ordered Studies 07/19/20 17:13 CT angio chest PE protocol Stat Hospital Course (1) PENA (dyspnea on exertion): (1) PENA (dyspnea on exertion): Mr. Andrew is an 89 yo M with a PMHx of HFrEF who presented for evaluation of dyspnea with exertion and mild chest discomfort of 1 week duration. Acute on chronic CHF exacerbation related to worsening aortic stenosis, see below - differential at this time consists of CHF exacerbation (and subsequent volume overload) vs. progression of known aortic stenosis vs. acute coronary syndrome - chest CTA showing small to moderate bilateral pleural effusions, suggestive of volume overload due to CHF exacerbation - chest pain present for past week - history not concerning for ACS. Troponin x 1 not elevated. EKG without ST segment changes - Moderate aortic stenosis noted on 2018 echo. Patient does complain of ongoing lightheadedness with walking. - afebrile. WBC normal. COVID neg. No consolidation consistent with PNA on chest imaging. No concern for infectious etiology at this time - D-dimer elevated, but chest CTA showing no evidence of pulmonary embolism - patient is currently saturating well on room air ECHO noted for EF 15-20%, which is stable from prior, however is now graded at moderate to severe, which is a worsening status from prior D/W pt and son Advised that pt could be a candidate for replacement surgery, but this is not emergent and can be d/w outpt Increased pt's lasix to 40mg QD Increased potassium dosing to BID (2) Chest pain: - dull discomfort present over past week; not reproducible on exam - EKG on admission without signs of ST segment changes - initial trop at 0.015 - repeat trop in am - ACS thought to be unlikely (3) CHF (congestive heart failure): - suspect mild acute exacerbation due to dietary sodium indiscretion - Most recent echo 12/2017 showing severe LV dilation (EF 15-20%), several global hypokinesis, moderate aortic stenosis, mild-moderate mitral regurgitation - patient mildly hypervolemic on exam - Chest imaging showing bilateral pleural effusions as above - BNP ordered - Daily weights, I/Os - IV lasix 20mg ordered on admission - continue home carvedilol - hold home furosemide while using IV dosing - of note, patient is not on an SHELLEY/ARB. Consider adding (4) Pleural effusion: - Chest CTA showing bilateral pleural effusions - likely secondary to CHF exacerbation - IV lasix as above (5) Mucus plugging of bronchi: - lower lobe bronchial wall thickening and mucous plugging noted on Chest CTA - patient does not appear to be at risk for aspiration, but can consider speech eval (6) Elevated serum creatinine: - Cr 1.41 on admission - baseline Cr appears to be 1.1 - 1.3 (7) Anemia: - Hgb 12.7, MCV 95 - anemia not significant enough to be responsible for dyspnea - recommend iron panel, B12 and folate as outpatient Please note: Pt lives at home with his with two sons in the area. Pt manages his own pill box, but does not seem familiar with what he is taking. Detailed verbal instructions given to pt, however he does seem to struggle with this somewhat. Discussed with son, Kosta, and advised that he or his brother (natural resource economist) should start helping with pills to ensure correct dosing. HHN was offered to pt by , but he declined. Advised son of this and that if they would like to set this up, he can call the [facility] office here or d/w PCP. (2) Chest pain: (3) CHF (congestive heart failure): (4) Pleural effusion: (5) Mucus plugging of bronchi: (6) Elevated serum creatinine: (7) Anemia: Total Time Total Time Spent Total Time Spent (In Minutes): >30 Total Time Includes: Examination of the Patient, Discharge Planning, Medication Reconciliation, Communication With Other Providers and Other Discharge Plan Discharge Items Patient Disposition: Home - Self-Care Reason For Visit: DYSPNEA Discharge Diagnosis: CHF exacerbation Condition on Discharge: Good Activity: Resume your previous activity Non-emergency contact: Primary Care Provider Call non-emergency contact if: you have any medication questions and your symptoms worsen Follow-up/Referrals: Luis Patiño DO [Primary Care Provider] - (3 days) Diet: Low Sodium (2gm) Addtl Attending Provider Instructions: It appears that you have been taking lasix (furosemide) 20mg daily. You should increase this to 40mg daily. You can take 2 of what you have at home, but will run out sooner. There is a new prescription for you to excelsior picker. You should take your potassium twice a day moving forward. You should see your primary care doctor by the end of the week Pending Studies at Discharge: No Stand-Alone Forms: [facility], Smoking Cessation Medications and DC Order Prescriptions: New furosemide [Lasix] 20 mg tablet 40 mg PO DAILY Qty: 60 RF: 0 potassium chloride [Klor-Con M20] 20 mEq Tablet,Er Particles/Crystals 20 meq PO BID Qty: 60 RF: 0 Continued clopidogrel 75 mg tablet 75 mg PO QAM Qty: 90 RF: 3 potassium chloride 20 mEq tablet extended release 20 meq PO DAILY Qty: 90 RF: 3 carvedilol 6.25 mg tablet 6.25 mg PO BID Qty: 180 RF: 3 finasteride 5 mg tablet 5 mg PO DAILY Qty: 90 RF: 1 ferrous sulfate 325 mg (65 mg iron) Tablet 325 mg PO DAILY RF: 0 Discontinued furosemide 20 mg tablet 20 mg PO QAM Qty: 90 RF: 3 Discharge Orders: Discharge Order (Routine); Ordered 07/20/20 Ordered By: Josephine Huitron Admission Data Admit Date/Time: 07/19/20 19:53 Attending Provider: Josephine Huitron Admit Provider: Kavitha Yin Primary Care Provider: Luis Patiño Other Providers: Dustin Fraser Other Interventions: Discharge Summary Assessment (RN) Last Done: 07/20/20 17:30 Coding Level of Care Code D/C Day Management >30 mins Diagnoses PENA (dyspnea on exertion) R06.00 Chest pain R07.9 Chest pain type: unspecified CHF (congestive heart failure) I50.9 Pleural effusion J90 Mucus plugging of bronchi J98.09 Elevated serum creatinine R79.89 Anemia D64.9
== END 2020-07-20 18:31 | disposition home or self-care (01) ==
LOC: 2W 14:42 → ED 14:42 → SUATTDRO 19:53 → 2W 20:50

== ENCOUNTER 2020-09-20 11:58 | Observation (INO) ==
[~2020-09-20 11:58] MED LIST changes: -ASPI81TA28 PO; +BACITRACIN INJ 50,000 UNIT VIAL ONE; +BACITRACIN OINT 0.9 GM PKT ONE; -CRG625 PO; -FERR1TAB13 PO; +LIDOCAINE HCL 1% 20 ML VIAL ONE; -LSN25 PO; -LSX20 PO; -MCRK20 PO; -MULTTAB58 PO; -PRS5 PO; -SIMV80TA5 PO; -TERA1CAP63 PO; -URX/10 PO
[2020-09-20] MEDS ORDERED: MIDAZOLAM HCL 5 MG/ML 1 ML VIAL ONE (12:22)
[2020-09-20] MEDS ORDERED: fentaNYL citrate 100 MCG/2 ML VIAL ONE (12:22)
--- NOTE | 2020-09-20 12:51 | History & Physical Bridge Note ---
Date of Service September 20, 2020 History & Physical Bridge Note I have examined the patient, reviewed the History & Physical and in the interval since the performance of the History & Physical I have noted the following changes of clinical significance: no changes noted. I reviewed the indications, procedure, risks and alternatives with the patient, answered all questions. Consent obtained. Patient understands and agrees to the procedure. I also reviewed the risks and use of sedation, patient understands and consent obtained. I did go over options during the procedure, specifically whether to replace the pacemaker with a biventricular pacemaker versus a biventricular ICD. I discussed the differences including the ability of the ICD to deliver shock should he have a cardiac arrest, we talked about a living will and he does want to be resuscitated if he would have a cardiac arrest and felt that the best option was the ICD rather than the pacemaker. I did discuss with him the lack of MRI compatibility if we put in an ICD and he is still agreeable to proceed.
--- NOTE | 2020-09-20 12:52 | Pre Anesthesia Assessment ---
Date of Service September 20, 2020 Pre Sedation Assessment Vital Signs Temp Pulse Resp BP Pulse Ox 09/20/20 12:08 36.6 C 75 17 119/71 98 Cardiovascular + regular rate Respiratory normal respiratory effort, lungs clear to auscultation Pre-Sedation Airway Assessment Smoking Status: Never smoker Hx Sleep Apnea: No Hx Difficult Intubation: No Short, Thick Neck: No Thyromental Distance: > or= 3.5 Finger Breadths Oral Cavity: + Dentures Mallampati Class: I ASA: ASA3 NPO Status Date of Last Intake of Fluids: 09/20/20 Time of Last Intake of Fluids: 07:00 Date of Last Intake of Solid Food: 09/19/20 Time of Last Intake of Solid Foods: 19:00 Procedure Planning Contraindications for Sedation: none Current Medications Reviewed: Yes Notes The planned sedation has been discussed with the patient. Informed Consent was obtained. I have identified the patient, determined the appropriateness of sedation and have assessed the patient immediately prior to the procedure. All medicine(s) and interventions are by my order.
[2020-09-20] MEDS ORDERED: ACETAMINOPHEN W/CODEINE #3 1 TAB PO PRN (15:52)
[2020-09-20] MEDS ORDERED: ACETAMINOPHEN 325 MG TAB PO PRN (15:52)
--- NOTE | 2020-09-20 15:52 | Electrophysiology Report ---
Date of Service September 20, 2020 Electrophysiology Procedure Electrophysiology Procedure Report Preoperative diagnosis: Cardiomyopathy Dual-chamber pacemaker Postoperative diagnosis: Same Procedure: Left subclavian venogram Right ventricular ICD lead implantation Coronary sinus angiogram Left ventricular lead implantation Dual-chamber pacemaker explantation Biventricular ICD implantation Surgeon: Eagle Millan MD Estimated blood loss: 50 cc Complications: None Disposition: [employer] recovery Procedure details: Dye was injected the left arm IV site to opacify the left subclavian vein. The subclavian vein was identified and found to be free of obstruction. Left axillary venipuncture was performed and a guidewire placed through left subclavian vein into the right atrium. A 3 cm incision was made through the old implant scar and carried down to the pectoralis fascia. A 10- 1/2 [place] Med[employer] lead introducer was advanced over the guidewire into the left subclavian vein, the dilator and guidewire were removed and a bipolar active fixation steroid tipped dual coil defibrillator lead was advanced through the introducer into the right atrium. The guidewire was placed back through the introducer. Using a curved stylette the ventricular lead was advanced through the right ventricle outflow tract into the pulmonary artery and then using a straight stylette was positioned in the right ventricular apex. Once in position the screw was extended fixing lead in position and pacing and sensing characteristics were evaluated in bipolar configuration and are reported on the implant data sheet. The lead was attached to the anterior pectoral fascia using 1 suture of 2-0 silk around the lead collar. A [place] coronary sinus sheath was advanced to position in the right atrium. It was positioned near the coronary sinus, a right angle inner guide was placed through the coronary sinus sheath and dye was injected to opacify the office of the coronary sinus and a guidewire was advanced into the coronary sinus. The i nner guide was advanced into the coronary sinus. Dye was injected in the coronary sinus. A good branch was identified and a 0.014 inch guidewire was advanced into the branch. A left ventricular lead was advanced over the guidewire into good position. The pacing threshold was evaluated in this position as noted on the implant data sheet. The sheath system was then removed from the lead and the lead was attached to the anterior pectoral fascia using 2 sutures of 2-0 silk around the lead collar. Another 2-0 silk suture was placed around the right ventricular lead collar. The pacemaker pocket was opened by further anesthetizing along the original implant site and incision was made through the scar and carried down to the pacemaker generator. The generator was dissected free of tissue and explanted. The pocket was enlarged in the inferior and medial direction. The leads were disconnected from the generator and a new biventricular ICD was attached to the chronic atrial lead and a new right ventricular defibrillator lead as well as the coronary sinus lead. The unused ventricular lead was capped. The ICD was placed in a Tyrx pouch and the system was placed in the pocket with the leads coiled beneath it and the incision was closed with a running double subcutaneous closure of 3-0 Vicryl followed by running subcuticular skin closure of 4-0 Vicryl. Bacitracin ointment was placed on incision and a dressing applied. [facility] Electrophysiology codes Pacing Procedure 1: Pacin BiV electrode w/Pacer / ICD implant, add on code Procedure 2: Pacin Removal Pacer genererator ICD Procedure 1: ICD: 19265 Revision of pocket for ICD Procedure 2: ICD: 60592 Insert single or dual ICD system Miscellaneous Procedures Procedure 1: EP Miscellaneous: 06504 Contrast injection for venography Procedure 2: EP Miscellaneous: 85429-49 Vengraphy, extremity Procedure 3: EP Miscellaneous: 01967-91 Venography, CS supevsion/interp PG Moderate Sedation Codes Moderate Sedation Codes Procedure 1: Sedation/Anesthesia: 00063 Mod Sedation by the same physician;Init15 Min Child Age 5 & Up Procedure 2: Sedation/Anesthesia: 74399 Mod Sedation by the same physician; Ea [id number] Minutes
--- NOTE | 2020-09-20 15:57 | Post Anesthesia Assessment ---
Date of Service September 20, 2020 Post Sedation Assessment Vital Signs Temp Pulse Resp BP Pulse Ox 09/20/20 15:45 57 L 17 128/64 95 09/20/20 15:35 57 L 17 127/66 93 09/20/20 12:08 36.6 C 75 17 119/71 98 Recovery Score Activity: Moves 4 extremities Respiration: Deep Breath/Cough Circulation: +/-20% PreAnes Value Consciousness: Fully Awake Oxygen Saturation: > 92% On Room Air Post Anesthesia Score: 10 Discharge Sedation Level of Care: Fast Track Phase II Post Sedation Plan On clinical assessment, the patient appears to have tolerated the sedation without complications. Patient is recovering as anticipated. Patient will continue to be monitored by nursing and may be discharged when sedation discharge criteria are met per below protocol. Upon Completions of procedure up to 15 minutes continue every 5 minute vital signs and the P.A.R. score; then discharge to a Phase I or Fast Track to Phase II per the following guidelines: * Discharge Patient to appropriate Phase II area if PAR is 8 or greater or return to pre- procedure baseline. The post - procedure orders will be as directed. * If PAR score is less than 8 or not return to pre-procedure baseline then kamila ent will follow Phase I monitoring till PAR is reached for Phase II. The Phase I may be done in procedure room or may call to secure a Phase I area. * If naloxone or flumazenil are used for reversal, hold in Phase I for continued monitoring from when last reversal dose was given for a minimum of 60 minutes or longer pending the nurse and/or physician discretion of patient condition before discharge to Phase II. Please call the Sedation Physician to re-evaluate and complete post-note for discharge to Phase II area. Do NOT discharge from procedure sedation or Phase 1 until post- sedation e valuation note is complete by procedure /sedation MD Sedation Discharge Instructions to be given to the patient at discharge to home.
[2020-09-20] MEDS: FUROSEMIDE 20 MG TAB PO SCH (18:26)
[2020-09-20] MEDS: carvediloL 6.25 MG TAB PO SCH (18:26)
[2020-09-20] MEDS: POTASSIUM CHLORIDE CRTAB 20 MEQ TABCR PO SCH (20:31)
[2020-09-21 05:02] LABS: Hematocrit (blood only) 30.7 % (42-52); Hemoglobin 10.4 g/dL (14.0-18.0); Mean Corpuscular Hgb Conc 33.9 g/dL (32-36); Mean Corpuscular Volume 91.4 fL (80-100); Mean Platelet Volume 10.5 fL (7.4-10.4); Platelet Count 170 K/uL (130-400); RDW Coefficient of Variation 12.9 % (11.5-14.5); RDW Standard Deviation 43.1 fL (36.4-46.3); Red Blood Count 3.36 M/uL (4.7-6.1)
[2020-09-21 05:24] LABS: BUN Creatinine Ratio 21.9 (10-20); Calcium 8.9 mg/dl (8.5-10.1); Creatinine Clr Calc Pharmacy 36.2 ml/min; Est GFR (African American) 53.1; Est GFR (Non-African American) 45.8; Potassium 4.1 mmol/L (3.5-5.1)
--- NOTE | 2020-09-21 08:29 | XRay Report ---
TWO VIEW CHEST CLINICAL HISTORY: Pacemaker implantation. FINDINGS: PA and lateral chest radiographs are compared to chest x-ray and chest CT dated 07/19/2020. A cardiac AICD has been placed. This partially obscures the left chest wall. The leads project over t he ventricles, the coronary sinus, the right atrial appendage. The heart is enlarged noting atheroscl erotic calcification of the thoracic aorta. The pulmonary vasculature is noncongested. There are calc ified mediastinal and hilar lymph nodes. Chronic interstitial thickening is similar to previous. Ther e is bibasilar scarring/atelectasis. There is no pneumothorax. The skeletal structures are osteopenic . The bony thorax appears intact. IMPRESSION: 1. A cardiac AICD has been placed as above. No pneumothorax is identified post procedure. 2. Cardiomegaly without radiographic evidence of congestive failure. 3. No airspace consolidation or pleural effusion is identified. ACT 112: Negative or not required by law. Electronically signed by: J Luis Parisi M.D. 09/21/2020 8:27 AM
[2020-09-21] MEDS: POTASSIUM CHLORIDE CRTAB 20 MEQ TABCR PO SCH (08:42)
[2020-09-21] MEDS: FUROSEMIDE 20 MG TAB PO SCH (08:42)
[2020-09-21] MEDS: carvediloL 6.25 MG TAB PO SCH (08:43)
[2020-09-21] MEDS ORDERED: CLOPIDOGREL BISULFATE 75 MG TAB PO SCH (09:00)
[2020-09-21] MEDS ORDERED: FERROUS SULFATE 325 MG TAB PO SCH (09:00)
[2020-09-21] MEDS ORDERED: FINASTERIDE 5 MG TAB PO SCH (09:00)
--- NOTE | 2020-09-21 09:48 | Cardiology Progress Note ---
Date of Service September 21, 2020 Assessment & Plan (1) Status post implantation of automatic cardioverter/defibrillator (AICD): He is doing very well postop, the leads are in good position, the ICD is functioning very well and he feels well other than some dizziness which is chronic. His laboratory studies are acceptable. He is stable for discharge. Admission and Anticipated Discharge Date Admission Date: September 20, 2020 Subjective He is feeling well other than some dizziness which is chronic. He has no incisional discomfort, no chest discomfort and no shortness of breath. Physical Exam Physical Exam: The site looks very good, there is no swelling, no bleeding or significant ecchymosis. No tenderness. Lungs are clear Cardiac rhythm is regular with no rub Results & Data ([facility]) Vital Signs (Past 12 Hours) Vital Signs Temp Pulse Pulse Resp BP BP Pulse Ox 09/21/20 08:26 37.1 C 75 18 91/55 L 96 09/20/20 23:56 36.7 C 77 24 114/66 96 Laboratory Results Cardiac Enzymes 09/21/20 Range/Units 04:50 Hgb 10.4 L (14.0-18.0) g/dL CBC 09/21/20 Range/Units 04:50 WBC 6.30 (4.8-10.8) K/uL RBC 3.36 L (4.7-6.1) M/uL Hgb 10.4 L (14.0-18.0) g/dL Hct 30.7 L (42-52) % Plt Count 170 (130-400) K/uL Comprehensive Metabolic Panel 09/21/20 Range/Units 04:50 Sodium 144 (136-145) mmol/L Potassium 4.1 (3.5-5.1) mmol/L Chloride 109 H (98-107) mmol/L Carbon Dioxide 31 (21-32) mmol/L BUN 30 H (7-18) mg/dl Creatinine 1.36 (0.6-1.4) mg/dl Glucose 119 H (70-99) mg/dl Calcium 8.9 (8.5-10.1) mg/dl Intake and Output 09/20/20 09/21/20 09/21/20 22:59 06:59 14:59 Other: # Unmeasured Voids 2 Diagnostic Findings Chest x-ray: Good lead position, no pneumothorax Postop ECG: Sinus rhythm with biventricular pacing, the complex has narrowed considerably from preop although the precordial morphology is unusual and that there are R waves across the precordium. I am not going to reprogram however. Telemetry: Appropriate ventricular pacing throughout ICD evaluation: Excellent pacing and sensing characteristics in all leads. PG Care Time/CCT Total # of Minutes Spent Total Time Spent with Patient: Total time spent is greater than 50% in coordi nation of care (as documented) at patient's floor/unit and/or counseling patient: Coding Level of Care Code 02040 Post Operative Follow-Up Diagnoses Status post implantation of automatic cardioverter/defibrillator (AICD) Z95.810 CPT Codes Implantable Defib Multi lead programming - 75694 ([id number])
--- NOTE | 2020-09-21 10:18 | Discharge Summary ---
Date of Service September 21, 2020 Admission HPI Per Admitting Provider This is an 89-year-old gentleman who is still very alert and active. He has a history of syncope and periods of complete heart block on monitoring in 2015. 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 He seemed to have a return of AV conduction with left bundle branch block and first-degree AV block and his temporary pacemaker was removed. A stress test performed April 23, 2016 demonstrated no AV block. However on the evening of April 23, 2016 he developed complete heart block with pauses of up to 17 seconds in duration associated with syncope. He therefore another temporary pacemaker placed and a permanent dual-chamber pacemaker implanted on April 24, 2016. Of note his left ventricular function was not markedly reduced at that time. He then presented in September 2017 with symptoms of heart failure and a somewhat elevated troponin, as well as severe left ventricular dysfunction with ejection fraction of 20 to 25%. Ultimately he had cardiac catheterization performed September 20, 2017 where he did have coronary artery disease identified however it was nonobstructive and therefore did not explain his cardiomyopathy. He was started on heart failure medications however he returned December 02, 2017 with recurrent congestive heart failure. At that point he had minimal ventricular pacing based on device interrogation therefore this is not a pacer induced cardiomyopathy. A follow-up echocardiogram January 04, 2018 showed if anything worsening of his left ventricular function. At that point he was lost to cardiology follow-up for several years, we started seeing him again in 2019. An echocardiogram done July 20, 2020 showed severe global hypokinesis with ejection fraction of 15 to 20% and moderate to severe aortic stenosis with moderate mitral regurgitation. He was not on a lot of heart failure medications, SHELLEY inhibition had been discontinued and he was on low-dose beta-blockade. We have been attempting to titrate his beta-blockade. By February 2020 he was pacing nearly all of the time in the ventricle. This likely contributed to worsening of his cardiomyopathy. We therefore discussed upgrade to a biventricular pacing system and he agreed, we discussed the use of an ICD and he does want to be resuscitated therefore we will upgrade to a biventricular ICD. He will lose MRI compatibility due to an abandoned right ventricular pacing lead however he understands that. Admission Exam (Per Admitting) Constitutional Constitutional: Alert, cooperative and in no distress. HEENT: Unremarkable Neck: No jugular venous distention, carotid pulses are normal and equal bilaterally without bruits. Pulmonary: Clear to auscultation bilaterally. Cardiac: Regular rhythm with with a grade 3/6 crescendo decrescendo murmur at the base and a grade 2/6 holosystolic murmur at the apex, no gallop or rub. Abdomen: Soft, nontender with normal bowel sounds. Extremities: No edema. Distal pulses intact. Neurologic: No focal findings. Gait is steady. Skin: The device site is well-healed without erythema, swelling or tenderness. No rash, ecchymoses or petechiae. Discharge Data Procedures Performed Operation Date: 09/20/20 13:00 Actual Procedures p Insertion ICD w/Existing Dual - Eagle Millan MD s Lead LV (No Priopr Implant) - Eagle Millan MD s Pacer Removal - Eagle Millan MD s Venogram, Unilateral - Eagle Millan MD Hospital Course (1) Status post implantation of automatic cardioverter/defibrillator (AICD): He underwent ICD evaluation on September 20, 2020 without difficulty. He is doing very well postop day #1, the leads are in good position, the ICD is functioning very well and he feels well other than some dizziness which is chronic. His laboratory studies are acceptable. He is stable for discharge. Coding Level of Care Code None Diagnoses Status post implantation of automatic cardioverter/defibrillator (AICD) Z95.810
== END 2020-09-21 12:16 | disposition home or self-care (01) ==
LOC: EP 11:58 → 1E 11:58